=== PATIENT | female | born 1945 | race Caucasian/White ===

== ENCOUNTER 2016-07-13 17:11 | Inpatient (IN) | payer OTHER ==
[~2016-07-13] VITALS: Ht 162.6 cm; Wt 39.4 kg
[~2016-07-13 17:11] MED LIST: ASPCH81X PO; CLR10 PO; CMBIN INH; CRD200 PO; ELQ25 PO; IPRASOL4 INH; KETO0.024 OP; LSN10 PO; LVQ500 PO; NAPR-1169 PO; TPRSR50 PO; TRAM-10 PO; VLTG EXT
[2016-07-13] MEDS ORDERED: PRED1SUS17 OPR (17:55)
[2016-07-13] MEDS ORDERED: BRIN3SUS OPR (17:55)
--- NOTE | 2016-07-13 18:01 | DIAGNOSTIC IMAGING REPORT ---
CHEST ONE VIEW PORTABLE CLINICAL HISTORY: Atypical chest pain. Difficulty breathing. COMPARISON STUDY: 05/14/2016 FINDINGS: The heart is enlarged. There is radiographic evidence of severe pulmonary emphysema. There is a small right pleural effusion and trace left pleural effusion. There is elevation of the interstitium. This suggests an element of mild interstitial edema.[ There is no lobar consolidation. IMPRESSION: 1. Severe pulmonary emphysema 2. Cardiomegaly, small right pleural effusion and trace left pleural effusion 3. Interval development of subtle interstitial edema 4. No evidence of lobar consolidation Electronically signed by: Jef Cole M.D. 07/13/2016 5:59 PM
[2016-07-13] MEDS ORDERED: VANCOMYCIN INJ 1,000 MG in SODIUM CHLORIDE 0.9% 250ML 250 ML IV STA ×2 (18:03→20:36)
[2016-07-13] MEDS ORDERED: PIPERACILLIN/TAZOBACTAM 4.5 GM/100ML D5W IV STA (18:03)
[2016-07-13] MEDS ORDERED: ADVIN25/60 INH (18:04)
[2016-07-13] MEDS ORDERED: CMBIN INH (18:04)
[2016-07-13] MEDS ORDERED: TRAV0.00 OPR (18:06)
[2016-07-13 18:10] LABS: HEMATOCRIT 38.7 % (37-47); MEAN CELL VOLUME 99.2 fL (80-100); MEAN CORPUSCULAR HEMOGLOBIN 32.3 pg (25-34); MEAN CORPUSCULAR HGB CONC 32.6 g/dl (32-36); MEAN PLATELET VOLUME 11.1 fL (7.4-10.4); PLATELET COUNT 228 K/uL (130-400)
[2016-07-13] MEDS ORDERED: LEVAQUIN 500MG / 100ML D5W IV ONE (18:15)
[2016-07-13 18:28] LABS: BUN/CREATININE RATIO 16.4 (10-20); CALCIUM 8.2 mg/dl (8.5-10.1); POTASSIUM 4.2 mmol/L (3.5-5.1)
[2016-07-13 18:33] LABS: ALB/GLOB RATIO 1.1 (0.9-2); CKMB/CK RATIO 3.3 (0-3.0)
[2016-07-13 19:10] LABS: INR 1.1 (0.9-1.1); PARTIAL THROMBOPLASTIN RATIO 0.9
--- NOTE | 2016-07-13 19:49 | DIAGNOSTIC IMAGING REPORT ---
LATERAL VIEW OF THE CHEST CLINICAL HISTORY: cough, fever, recent admission pneumonia COMPARISON STUDY: 07/13/2016 FINDINGS: There are small bilateral pleural effusions. There is radiographic evidence of emphysema. There are increased posterior basilar markings.[ IMPRESSION: Small bilateral pleural effusions. Posterior basilar airspace opacities Electronically signed by: Jef Cole M.D. 07/13/2016 7:47 PM
[2016-07-13] MEDS ORDERED: PREMIXED IN D5W 100 ML IV SCH (20:45)
[2016-07-13] MEDS ORDERED: NITROGLYCERIN 0.4 MG SL PER TAB CHARGE UT PRN (20:45)
[2016-07-13] MEDS ORDERED: ZOLPIDEM TARTRATE 5 MG TAB PO PRN (20:45)
[2016-07-13] MEDS ORDERED: ONDANSETRON INJ 2 MG/ML 2 ML VIAL IV PRN ×2 (20:45)
[2016-07-13] MEDS ORDERED: ACETAMINOPHEN 325 MG TAB PO PRN ×2 (20:45)
[2016-07-13] MEDS ORDERED: METHYLPREDNISOLONE 125 MG VIAL ONE (20:52)
[2016-07-13] MEDS ORDERED: LEVALBUTEROL/IPRATROPIUM NEB INH SCH (21:00)
--- NOTE | 2016-07-13 21:03 | EMERGENCY ROOM VISIT NOTE ---
History Report prepared by Melvin: Marion Escamilla Under the Supervision of: Dr. Edison Kwan M.D. First contact with patient: 17:46 Chief Complaint: CHEST PAIN Stated Complaint: BREATHING DIFFICULTY/CHEST PAIN Nursing Triage Summary: hx pneumonia, CT, and emphysema. c/o left sided chest pain and sob. arrived als with resp tx running. frequent cough, yellow sputum. "sob worse today" left antererior chest end inspiration monophonic wheeze History of Present Illness The patient is a 70 year old female who presents to the Emergency Room via ALS with complaints of worsened shortness of breath that began this evening. She notes that the shortness of breath began after an albuterol breathing treatment. She has a history of COPD. She also complains of a sore throat and productive cough with yellow sputum. The patient notes that she recently recovered from pneumonia after being hospitalized a few weeks before . She is in on [employer] for a-fib. She also has a history of CT. Source of History: patient Onset: today Position: other (Global - SOB) Timing: other (worsened) Associated Symptoms: + cough, + sorethroat Review of Systems See HPI for pertinent positives & negatives. A total of 10 systems reviewed and were otherwise negative. Past Medical & Surgical Medical Problems: (1) ACS (acute coronary syndrome) (2) Anxiety (3) Bronchitis (4) Cardiac stent x2 (5) COPD exacerbation (6) Emphysema (7) Gastroesophageal reflux disease (8) Hyperlipidemia (9) Hypotension (10) Hysterectomy (11) Junctional rhythm (12) Migraines (13) Myocardial infarction (14) Pneumonia (15) Shortness of breath (16) Ulcers Family History No pertinent family history Social History Smoking Status: Light Tobacco Smoker Alcohol Use: none Drug Use: none Marital Status: Housing Status: lives with family Occupation Status: retired Current/Historical Medications Scheduled Amiodarone HCl (Amiodarone HCl), 200 MG PO QAM Apixaban (Eliquis), 2.5 MG PO BID Aspirin (Aspirin Chewable), 81 MG PO DAILY Atorvastatin Calcium (Lipitor), 80 MG PO DAILY Brinzolamide-Brimonidine Tartr (Simbrinza), 1 DROP OPR TID Fluticasone Prop/Salmeterol (Advair Diskus 250/50 60 Dose), 1 PUFF INH BID Ipratropium-Albuterol (Duoneb), 1 TREATMENT INH BID Ipratropium/Albuterol (Combivent), 2 PUFFS INH Q6 Lisinopril (Zestril), 10 MG PO DAILY Metoprolol Succinate (Metoprolol Succinate ER), 50 MG PO QAM Nitroglycerin (Nitrostat), 0.4 MG UT PRN Prednisolone Acetate (Ophth) (Prednisolone Acetate), 1 DROP OPR QID Travoprost (Travatan Z), 1 DROPS OPR HS Allergies Coded Allergies: Sulfa Antibiotics (Verified Allergy, Unknown, SWELLING, 07/13/16) Physical Exam Vital Signs Date Time Temp Pulse Resp B/P Pulse Ox O2 Delivery O2 Flow Rate FiO2 07/13/16 20:47 77 07/13/16 18:51 77 26 90 07/13/16 18:46 77 22 90 07/13/16 18:41 81 36 89 07/13/16 18:36 80 29 90 07/13/16 18:31 80 23 90 07/13/16 18:28 135/59 07/13/16 18:26 80 31 91 07/13/16 18:21 81 33 90 Nasal Cannula 2.0 07/13/16 18:16 80 35 89 Nasal Cannula 2.0 07/13/16 18:12 148/74 07/13/16 18:11 81 37 90 07/13/16 18:06 80 34 89 07/13/16 18:01 82 33 89 07/13/16 17:59 161/142 07/13/16 17:56 85 27 89 07/13/16 17:51 83 39 92 07/13/16 17:46 80 36 93 07/13/16 17:45 96 Nasal Cannula 3.0 07/13/16 17:41 80 35 94 Nasal Cannula 3.0 07/13/16 17:36 83 34 95 Nasal Cannula 3.0 07/13/16 17:31 83 30 94 Nasal Cannula 2.0 07/13/16 17:29 194/77 07/13/16 17:26 82 32 96 Nebulizer 07/13/16 17:23 81 07/13/16 17:21 82 41 100 Nebulizer 07/13/16 17:15 148/73 07/13/16 17:15 92 Nasal Cannula 2.0 07/13/16 17:15 94 Nasal Cannula 3.0 07/13/16 17:15 96 Nasal Cannula 3.0 07/13/16 17:15 38.0 81 22 194/77 94 Nasal Cannula 3.0 Physical Exam CONSTITUTIONAL: Mild to moderate respiratory distress. HEENT: No icterus, moist mucous membranes NECK: No meningismus, trachea is midline. CARDIOVASCULAR: Regular rate, normal perfusion RESPIRATORY: Unlabored breathing. Diminished coarse breath sounds bilaterally. GASTROINTESTINAL: Non-tender GENITOURINARY: No flank tenderness MUSCULOSKELETAL: Full range of motion NEUROLOGIC: No acute gross focal deficits. PSYCHIATRIC: Normal affect SKIN: Normal for ethnicity. Medical Decision & Procedures ER Provider Diagnostic Interpretation: X-ray results as stated below per interpretation by me and the radiologist. CHEST ONE VIEW PORTABLE CLINICAL HISTORY: Atypical chest pain. Difficulty breathing. COMPARISON STUDY: 05/14/2016 FINDINGS: The heart is enlarged. There is radiographic evidence of severe pulmonary emphysema. There is a small right pleural effusion and trace left pleural effusion. There is elevation of the interstitium. This suggests an element of mild interstitial edema.[ There is no lobar consolidation. IMPRESSION: 1. Severe pulmonary emphysema 2. Cardiomegaly, small right pleural effusion and trace left pleural effusion 3. Interval development of subtle interstitial edema 4. No evidence of lobar consolidation Electronically signed by: Jef Cole M.D. 07/13/2016 5:59 PM LATERAL VIEW OF THE CHEST CLINICAL HISTORY: cough, fever, recent admission pneumonia COMPARISON STUDY: 07/13/2016 FINDINGS: There are small bilateral pleural effusions. There is radiographic evidence of emphysema. There are increased posterior basilar markings.[ IMPRESSION: Small bilateral pleural effusions. Posterior basilar airspace opacities Electronically signed by: Jef Cole M.D. 07/13/2016 7:47 PM Laboratory Results 07/13/16 17:50 07/13/16 17:50 Test 07/13/16 17:50 07/13/16 18:40 07/13/16 18:45 07/13/16 18:50 Red Blood Count 3.90 M/uL (4.2-5.4) Mean Corpuscular Volume 99.2 fL (80-100) Mean Corpuscular Hemoglobin 32.3 pg (25-34) Mean Corpuscular Hemoglobin Concent 32.6 g/dl (32-36) RDW Standard Deviation 48.9 fL (36.4-46.3) RDW Coefficient of Variation 13.6 % (11.5-14.5) Mean Platelet Volume 11.1 fL (7.4-10.4) Anion Gap 11.0 mmol/L (3-11) Est Creatinine Clear Calc Drug Dose 33.5 ml/min Estimated GFR () 65.6 Estimated GFR (Non- 56.6 BUN/Creatinine Ratio 16.4 (10-20) Calcium Level 8.2 mg/dl (8.5-10.1) Total Bilirubin 0.5 mg/dl (0.2-1) Aspartate Amino Transf (AST/SGOT) 56 U/L (15-37) Alanine Aminotransferase (ALT/SGPT) 62 U/L (12-78) Alkaline Phosphatase 151 U/L (45-117) Total Creatine Kinase 89 U/L (26-192) Creatine Kinase MB 2.9 ng/ml (0.5-3.6) Creatine Kinase MB Ratio 3.3 (0-3.0) Troponin I 0.036 ng/ml (0-0.045) Total Protein 6.8 gm/dl (6.4-8.2) Albumin 3.6 gm/dl (3.4-5.0) Globulin 3.2 gm/dl (2.5-4.0) Albumin/Globulin Ratio 1.1 (0.9-2) Pro-B-Type Natriuretic Peptide 19670 pg/ml (0-900) Prothrombin Time 12.0 SECONDS (9.0-12.0) Prothromb Time International Ratio 1.1 (0.9-1.1) Activated Partial Thromboplast Time 23.6 SECONDS (21.0-31.0) Partial Thromboplastin Ratio 0.9 Bedside Lactic Acid Venous 1.05 mmol/L (0.90-1.70) Influenza Type A Antigen Neg for Influ A (NEG) Influenza Type B Antigen Neg for Influ B (NEG) Labs reviewed by ED physician. Medications Administered Medications (Trade) Dose Ordered Sig/Eileen Route Start Time Stop Time Status Last Admin Dose Admin Piperacillin Sod/ Tazobactam Sod (Zosyn Iv) 4.5 gm NOW STAT IV 07/13/16 18:03 07/13/16 18:06 DC 07/13/16 19:09 4.5 GM Levofloxacin 500 mg 500 mg NOW ONCE IV 07/13/16 18:15 07/13/16 18:16 DC 07/13/16 19:09 500 MG Vancomycin HCl/ Sodium Chloride (Vancomycin Inj/ Nss 250ml) 270 ml @ 125 mls/hr NOW STAT IV 07/13/16 18:03 07/13/16 20:12 DC 07/13/16 19:37 125 MLS/HR ECG Indication: SOB/dyspnea Rate (beats per minute): 81 Findings: other (normal axis, nonspecific changes with artifact noted) ED Course 1754: Past medical records reviewed. The patient was evaluated in room B7. A complete history and physical examination was performed. 1802: Ordered Vancomycin HCl 1000 mg/NSS 270 ml @ 125 mls/hr IV, Zosyn 4.5 gm IV. 1814: Ordered Levofloxacin 500 mg IV. 2003: Upon reexamination the patient is resting comfortably. I discussed results and treatment plan with the patient. She verbalizes agreement and understanding. 2020: I spoke with Dr. Avila from the [facility] Hospitalist Service. The patient will be evaluated for further management. Medical Decision Differential includes but is not limited to pneumonia, flu, CHF. 70-year-old with history of COPD and emphysema with recent report of hospitalization for pneumonia presents to the emergency room with fever today and worsening dyspnea. Given fever and recent hospitalization for pneumonia antibiotics for healthcare acquired pneumonia ordered including Zosyn, Levaquin and vancomycin. Chest x-ray concerning for pneumonia and admission arranged hospitalist. Consults Time Called: 2000 Consulting Physician: Dr. Avila from the [facility] Hospitalist Service Returned Call: [address] Avila from the [facility] Hospitalist Service. The patient will be evaluated for further management. Impression Primary Impression: Fever Scribe Attestation The scribe's documentation has been prepared under my direction and personally reviewed by me in its entirety. I confirm that the note above accurately reflects all work, treatment, procedures, and medical decision making performed by me. Departure Information Dispostion Being Evaluated By Hospitalist Referrals Inocencio Liz M.D. (PCP) Patient Instructions A Signature Page, My [facility]
[2016-07-13] MEDS ORDERED: LEVALBUTEROL 1.25MG/0.5ML NEB INH PRN (21:15)
[2016-07-13] MEDS ORDERED: IPRATROPIUM BROMIDE NEB SOLN 0.02% 2.5 ML VIAL INH PRN (21:15)
[2016-07-13 21:28] VITALS: BP 135/70; PULSE 81; TEMP 36.4; O2SAT 91; Ht 162.6 cm; Wt 39.4 kg
[2016-07-13] MEDS: PrednisoLONE ACET 1% OP SUSP 5 ML BTL OPR SCH (22:04)
[2016-07-13] MEDS: GUAIFENESIN 600 MG TABCR PO SCH (22:04)
[2016-07-13] MEDS: TRAVOPROST Z 0.004% OPH SOLN 2.5 ML BTL OPR SCH (22:04)
[2016-07-13] MEDS: APIXABAN 2.5 MG TAB PO SCH (22:04)
[2016-07-13] MEDS: BuPROPion SR 150 MG TABCR PO SCH (22:05)
--- NOTE | 2016-07-13 22:41 | History and Physical ---
History & Physical Date & Time of Service: Jul 13, 2016 at 22:15 Chief Complaint: Copd Exacerbation, Pneumonia Primary Care Physician: Inocencio Liz M.D. History of Present Illness Source: patient The patient is a 70-year-old female who presents emergency department via ALS with complaint of progressively worsening shortness of breath over the past few days but in particular earlier this evening. She has a known history of severe COPD, and has home nebulizers and inhalers that she uses. Her symptoms persisted even after her usual treatments at home and this precipitated a call to emergency services. She has been most recently admitted into the hospital from April 29- for a non-STEMI, and then from May 13 through May 16 for a COPD exacerbation, atrial flutter, hypotension requiring dopamine. She does continue to smoke tobacco daily. Past Medical/Surgical History Medical Problems: (1) Anxiety Status: Chronic (2) Bronchitis Status: Chronic (3) Cardiac stent x2 Status: Resolved (4) Emphysema Status: Chronic (5) Gastroesophageal reflux disease Status: Chronic (6) Hyperlipidemia Status: Chronic (7) Hysterectomy Status: Resolved (8) Migraines Status: Chronic (9) Myocardial infarction Status: Chronic (10) Pneumonia Status: Chronic (11) Ulcers Status: Chronic Family History No pertinent family history Social History Smoking Status: Current Every Day Smoker Smokeless Tobacco Use: No Alcohol Use: none Drug Use: none Marital Status: Housing status: lives with family Occupational Status: retired Immunizations History of Influenza Vaccine: Yes History of Tetanus Vaccine?: No History of Pneumococcal: No History of Hepatitis B Vaccine: No Multi-Drug Resistant Organisms History of MDRO: Yes Allergies Coded Allergies: Sulfa Antibiotics (Verified Allergy, Unknown, SWELLING, 07/13/16) Home Medications Scheduled Amiodarone HCl (Amiodarone HCl), 200 MG PO QAM Apixaban (Eliquis), 2.5 MG PO BID Aspirin (Aspirin Chewable), 81 MG PO DAILY Atorvastatin Calcium (Lipitor), 80 MG PO DAILY Brinzolamide-Brimonidine Tartr (Simbrinza), 1 DROP OPR TID Fluticasone Prop/Salmeterol (Advair Diskus 250/50 60 Dose), 1 PUFF INH BID Ipratropium-Albuterol (Duoneb), 1 TREATMENT INH BID Ipratropium/Albuterol (Combivent), 2 PUFFS INH Q6 Lisinopril (Zestril), 10 MG PO DAILY Metoprolol Succinate (Metoprolol Succinate ER), 50 MG PO QAM Nitroglycerin (Nitrostat), 0.4 MG UT PRN Prednisolone Acetate (Ophth) (Prednisolone Acetate), 1 DROP OPR QID Travoprost (Travatan Z), 1 DROPS OPR HS Review of Systems The patient denies chest pain, palpitations, lower extremity swelling, vision change, hearing change, fevers, chills, sweats, weight change, nausea, vomiting , abdominal pain, pelvic pain, blood in urine or stool, dysuria, urinary frequency or urgency, lightheadedness, dizziness, headache, memory loss, rash, abnormal bruising or bleeding, imbalance, focal weakness, numbness or tingling in arms or legs, arthralgias or myalgias, back or neck pain, night sweats, or allergy symptoms. The review of systems is otherwise negative other than for that already noted above, and at least 10 systems have been reviewed. Physical Exam Vital Signs Date Time Temp Pulse Resp B/P Pulse Ox O2 Delivery O2 Flow Rate FiO2 07/13/16 21:28 36.4 81 26 135/70 91 Nasal Cannula 4.0 07/13/16 21:13 38.0 78 32 123/46 93 07/13/16 21:01 78 123/46 93 Nasal Cannula 2.0 07/13/16 20:56 79 91 07/13/16 20:51 124 80 07/13/16 20:47 77 07/13/16 20:46 79 93 07/13/16 20:41 83 91 07/13/16 20:36 81 93 07/13/16 20:31 78 94 07/13/16 20:26 79 95 07/13/16 20:21 78 92 07/13/16 20:16 77 92 07/13/16 20:11 76 92 07/13/16 20:06 76 92 07/13/16 20:01 74 91 07/13/16 19:56 74 93 07/13/16 19:51 76 93 07/13/16 19:46 78 91 07/13/16 19:29 118/47 07/13/16 19:26 77 32 92 07/13/16 19:21 80 39 91 07/13/16 19:16 78 37 92 07/13/16 19:11 79 36 89 07/13/16 19:06 80 35 89 07/13/16 19:01 79 39 89 07/13/16 19:00 110/100 07/13/16 18:56 78 38 90 07/13/16 18:51 77 26 90 07/13/16 18:46 77 22 90 07/13/16 18:41 81 36 89 07/13/16 18:36 80 29 90 07/13/16 18:31 80 23 90 07/13/16 18:28 135/59 07/13/16 18:26 80 31 91 07/13/16 18:21 81 33 90 Nasal Cannula 2.0 07/13/16 18:16 80 35 89 Nasal Cannula 2.0 07/13/16 18:12 148/74 07/13/16 18:11 81 37 90 07/13/16 18:06 80 34 89 07/13/16 18:01 82 33 89 07/13/16 17:59 161/142 07/13/16 17:56 85 27 89 07/13/16 17:51 83 39 92 07/13/16 17:46 80 36 93 07/13/16 17:45 96 Nasal Cannula 3.0 07/13/16 17:41 80 35 94 Nasal Cannula 3.0 07/13/16 17:36 83 34 95 Nasal Cannula 3.0 07/13/16 17:31 83 30 94 Nasal Cannula 2.0 07/13/16 17:29 194/77 07/13/16 17:26 82 32 96 Nebulizer 07/13/16 17:23 81 07/13/16 17:21 82 41 100 Nebulizer 07/13/16 17:15 148/73 07/13/16 17:15 92 Nasal Cannula 2.0 07/13/16 17:15 94 Nasal Cannula 3.0 07/13/16 17:15 96 Nasal Cannula 3.0 07/13/16 17:15 38.0 81 22 194/77 94 Nasal Cannula 3.0 The patient is awake, alert and oriented 3, is very thin and cachectic appearing, normocephalic and atraumatic, lying in bed and in no acute distress. HEENT--PERRL, EOMI, mucous membranes moist, and oropharynx normal. Neck--supple, no JVD or bruits, thyroid normal, trachea midline, no adenopathy. Heart--normal S1 and S2, no extra beats, no murmurs, rubs or gallops. Lungs--very diminished breath sounds throughout , mild to moderate respiratory distress, no accessory muscle use. Abdomen--normal bowel sounds and soft, nontender and nondistended, no hernias or masses, no organomegaly. Extremities--no cyanosis, clubbing or edema. There are good distal pulses b/l. Dermatologic--normal skin turgor, normal color, warm and dry, no abnormal lymph nodes, no rash. Neurologic--cranial nerves II through XII grossly intact. Psychiatric--normal affect. Diagnostics Laboratory Results Results Past 24 Hours Test 07/13/16 17:50 07/13/16 18:40 07/13/16 18:45 07/13/16 18:50 Range/Units White Blood Count 17.60 4.8-10.8 K/uL Red Blood Count 3.90 4.2-5.4 M/uL Hemoglobin 12.6 12.0-16.0 g/dL Hematocrit 38.7 37-47 % Mean Corpuscular Volume 99.2 80-100 fL Mean Corpuscular Hemoglobin 32.3 25-34 pg Mean Corpuscular Hemoglobin Concent 32.6 32-36 g/dl RDW Standard Deviation 48.9 36.4-46.3 fL RDW Coefficient of Variation 13.6 11.5-14.5 % Platelet Count 228 130-400 K/uL Mean Platelet Volume 11.1 7.4-10.4 fL Sodium Level 138 136-145 mmol/L Potassium Level 4.2 3.5-5.1 mmol/L Chloride Level 100 98-107 mmol/L Carbon Dioxide Level 27 21-32 mmol/L Anion Gap 11.0 3-11 mmol/L Blood Urea Nitrogen 16 7-18 mg/dl Creatinine 1.00 0.60-1.20 mg/dl Est Creatinine Clear Calc Drug Dose 33.5 ml/min Estimated GFR () 65.6 Estimated GFR (Non- 56.6 BUN/Creatinine Ratio 16.4 10-20 Random Glucose 166 70-99 mg/dl Calcium Level 8.2 8.5-10.1 mg/dl Total Bilirubin 0.5 0.2-1 mg/dl Aspartate Amino Transf (AST/SGOT) 56 15-37 U/L Alanine Aminotransferase (ALT/SGPT) 62 12-78 U/L Alkaline Phosphatase 151 45-117 U/L Total Creatine Kinase 89 26-192 U/L Creatine Kinase MB 2.9 0.5-3.6 ng/ml Creatine Kinase MB Ratio 3.3 0-3.0 Troponin I 0.036 0-0.045 ng/ml Total Protein 6.8 6.4-8.2 gm/dl Albumin 3.6 3.4-5.0 gm/dl Globulin 3.2 2.5-4.0 gm/dl Albumin/Globulin Ratio 1.1 0.9-2 Pro-B-Type Natriuretic Peptide 19370 0-900 pg/ml Prothrombin Time 12.0 9.0-12.0 SECONDS Prothromb Time International Ratio 1.1 0.9-1.1 Activated Partial Thromboplast Time 23.6 21.0-31.0 SECONDS Partial Thromboplastin Ratio 0.9 Bedside Lactic Acid Venous 1.05 0.90-1.70 mmol/L Influenza Type A Antigen Neg for Influ A NEG Influenza Type B Antigen Neg for Influ B NEG Microbiology Results 07/13/16 Blood Culture, Received Pending 07/13/16 Blood Culture, Received Pending Diagnostic Radiology Patient Name: LAW ALVAREZ Unit Number: [id number] Dictated: 07/13/161756 Transcribed: 07/13/161756 ARG Printed Date/Time: [~ rep prt dt]/[~ rep prt tm] [~ rep ct labl] - [~ rep ct ivnm] [facility] Radiology Department [place], [place] [id number] Dictated: 07/13/161756 Transcribed: 07/13/161756 ARG Printed Date/Time: [~ rep prt dt]/[~ rep prt tm] [~ rep ct labl] - [~ rep ct ivnm] [~ rep ct add3]] CHEST ONE VIEW PORTABLE CLINICAL HISTORY: Atypical chest pain. Difficulty breathing. COMPARISON STUDY: 05/14/2016 FINDINGS: The heart is enlarged. There is radiographic evidence of severe pulmonary emphysema. There is a small right pleural effusion and trace left pleural effusion. There is elevation of the interstitium. This suggests an element of mild interstitial edema.[ There is no lobar consolidation. IMPRESSION: 1. Severe pulmonary emphysema 2. Cardiomegaly, small right pleural effusion and trace left pleural effusion 3. Interval development of subtle interstitial edema 4. No evidence of lobar consolidation Electronically signed by: Jef Cole M.D. 07/13/2016 5:59 PM The status of this report is Signed. Draft = Not yet reviewed or approved by Radiologist. Signed = Reviewed and approved by Radiologist. <AttendingPhy></AttendingPhy> <FamilyPhy>Inocencio Liz M.D.</FamilyPhy> < PrimaryPhy>Inocencio Liz M.D.</PrimaryPhy> <UnitNumber>[id number]</UnitNumber> <VisitNumber>[id number]</VisitNumber> <PatientName>LAW ALVAREZ</ PatientName> <DateOfBirth>1945</DateOfBirth> <Location>[facility]</Location> < ServiceDate>07/13/16</ServiceDate> <MNE>ESINDI</MNE> <OrderingPhy>ED, PROTOCOL</ OrderingPhy> <OrderingPhyMNE>f rep ord dr pham</OrderingPhyMNE> <DictatingPhyMNE> f rep dict dr pham</DictatingPhyMNE> <CCListMNE>f rep ct mne</CCListMNE> < AdmittingPhyMNE>f pt admit dr pham</AdmittingPhyMNE> <AttendingPhyMNE>f pt attend dr pham</AttendingPhyMNE> <ConsultingPhyMNE>f pt consult dr pham</ConsultingPhyMNE> <FamilyPhyMNE>f pt fam dr pham</FamilyPhyMNE> <OtherPhyMNE>f pt other dr pham</OtherPhyMNE> < PrimaryPhyMNE>f pt prim care dr pham</PrimaryPhyMNE> <ReferringPhyMNE>f pt referring dr pham</ReferringPhyMNE> Patient Name: LAW ALVAREZ Unit Number: [id number] Dictated: 07/13/161945 Transcribed: 07/13/161945 ARG Printed Date/Time: [~ rep prt dt]/[~ rep prt tm] [~ rep ct labl] - [~ rep ct ivnm] [facility] Radiology Department [place], [place] [id number] Dictated: 07/13/161945 Transcribed: 07/13/161945 ARG Printed Date/Time: [~ rep prt dt]/[~ rep prt tm] [~ rep ct labl] - [~ rep ct ivnm] LATERAL VIEW OF THE CHEST CLINICAL HISTORY: cough, fever, recent admission pneumonia COMPARISON STUDY: 07/13/2016 FINDINGS: There are small bilateral pleural effusions. There is radiographic evidence of emphysema. There are increased posterior basilar markings.[ IMPRESSION: Small bilateral pleural effusions. Posterior basilar airspace opacities Electronically signed by: Jef Cole M.D. 07/13/2016 7:47 PM The status of this report is Signed. Draft = Not yet reviewed or approved by Radiologist. Signed = Reviewed and approved by Radiologist. <AttendingPhy></AttendingPhy> <FamilyPhy>Hank Guthrie D.O.</FamilyPhy> < PrimaryPhy>Inocencio Liz M.D.</PrimaryPhy> <UnitNumber>[id number]</UnitNumber> <VisitNumber>[id number]</VisitNumber> <PatientName>LAW ALVAREZ Denys</ PatientName> <DateOfBirth>1945</DateOfBirth> <Location>[facility]</Location> < ServiceDate>07/13/16</ServiceDate> <MNE>ESINDI</MNE> <OrderingPhy>Pal Kwan MD</OrderingPhy> <OrderingPhyMNE>f rep ord dr pham</OrderingPhyMNE> < DictatingPhyMNE>f rep dict dr pham</DictatingPhyMNE> <CCListMNE>f rep ct ankit</ CCListMNE> <AdmittingPhyMNE>f pt admit dr pham</AdmittingPhyMNE> <AttendingPhyMNE >f pt attend dr pham</AttendingPhyMNE> <ConsultingPhyMNE>f pt consult dr pham</ConsultingPhyMNE> <FamilyPhyMNE>f pt fam dr pham</FamilyPhyMNE> <OtherPhyMNE>f pt other dr pham</OtherPhyMNE> < PrimaryPhyMNE>f pt prim care dr pham</PrimaryPhyMNE> <ReferringPhyMNE>f pt referring dr pham</ReferringPhyMNE> EKG EKG shows normal sinus rhythm at 81, with old anterior infarct, and [address] depressions in V5 and V6. Impression Assessment and Plan COPD exacerbation with left lower lobe pneumonia--patient will be admitted to telemetry unit. She'll be placed on vancomycin IV per renal dosing, levofloxacin 500 mg IV every 24 hours, Zosyn 3.375 mg IV every 8 hours, Xopenex with Atrovent nebulizers to use every 6 hours while awake every 2 hours when necessary, guaifenesin extended release 600 mg by mouth twice a day, and Solu- Medrol 60 mg IV every 6 hours. Coronary artery disease/hypertension/history of non-STEMI/ A flutter history-- patient will be admitted to the telemetry unit and will undergo serial cardiac enzymes, and cardiac rhythm monitoring. Continue amiodarone 200 mg by mouth every morning, Eliquis 2.5 mg by mouth twice a day, chewable aspirin 81 mg by mouth daily, lisinopril 10 mg by mouth daily, metoprolol succinate ER 50 mg by mouth every morning and nitroglycerin sublingual when necessary. Hypercholesterolemia--continue atorvastatin 80 mg by mouth daily. Tobacco use disorder--we'll start patient on Wellbutrin SR 150 mg by mouth twice a day. Glaucoma--continue Travatan Z 1 drop OPR HS. Level of Care Telemetry Advanced Directives Existing Advance Directive: No Existing Living Will: No Existing Power of Mattress Stripper: No Resuscitation Status FULL RESUSCITATION VTE Prophylaxis VTE Risk Assessment Done? Y/N: Yes Risk Level: Moderate Given or contraindicated: Other Anticoagulation (eliquis 2.5mg po bid), SCD's
[2016-07-13] MEDS: SIMBRINZA~ORDER AWAITING ACTION SCH (23:00)
[2016-07-13] MEDS: PIPERACILL/TAZOBAC IV 3.375 GM in DEXTROSE 5% 100ML 100 ML IV SCH (23:03)
[2016-07-13 23:35] VITALS: BP 100/48; PULSE 69; TEMP 36.5; O2SAT 98
[2016-07-14] VITALS (10 sets, daily range): BP systolic 114–127; BP diastolic 57–64; PULSE 55–74; TEMP 36.4–37; O2SAT 98–100
[2016-07-14 00:03] LABS: CKMB/CK RATIO 4.3 (0-3.0)
[2016-07-14] MEDS: LEVALBUTEROL 1.25MG/0.5ML NEB INH SCH ×4 (01:26→20:33)
[2016-07-14] MEDS: IPRATROPIUM BROMIDE NEB SOLN 0.02% 2.5 ML VIAL INH SCH ×4 (01:26→20:33)
[2016-07-14] MEDS ORDERED: GLUCOSE 40% GEL 15 GM TUBE PO PRN (03:15)
[2016-07-14] MEDS ORDERED: DEXTROSE 50% 50 ML SYR IV PRN (03:15)
[2016-07-14] MEDS ORDERED: GLUCAGON FOR INJ 1 MG VIAL SQ PRN (03:15)
[2016-07-14] MEDS ORDERED: GLUCOSE 10 TABS/TUBE PO PRN (03:15)
[2016-07-14] MEDS: METHYLPREDNISOLONE IV 60 MG in SYRINGE 0 ML IV SCH ×2 (03:33→08:52)
[2016-07-14] MEDS: INSULIN ASPART 100 UNITS/ML 3 ML PEN SC SCH ×4 (07:00→20:31)
[2016-07-14 07:30] LABS: COMPLETE YES; HEMATOCRIT 33.4 % (37-47); IG% 0.1 %; LYMPH % 4.2 %; LYMPH ABS # 0.47 K/uL (1.2-3.4); MEAN CORPUSCULAR HEMOGLOBIN 32.5 pg (25-34); MEAN CORPUSCULAR HGB CONC 33.8 g/dl (32-36); MEAN PLATELET VOLUME 10.1 fL (7.4-10.4); MONO % 1.4 %; NEUT % 94.3 %; PLATELET COUNT 133 K/uL (130-400); RED BLOOD COUNT 3.48 M/uL (4.2-5.4); WHITE BLOOD COUNT 11.31 K/uL (4.8-10.8)
[2016-07-14] MEDS: BUDESONIDE 0.5 MG/2 ML VIAL (PULMICORT) INH SCH ×2 (07:42→20:00)
[2016-07-14 07:47] LABS: CALCIUM 8.1 mg/dl (8.5-10.1); CREATININE 0.89 mg/dl (0.60-1.20); MAGNESIUM 1.7 mg/dl (1.8-2.4); POTASSIUM 3.7 mmol/L (3.5-5.1)
[2016-07-14 07:58] LABS: CKMB/CK RATIO 5.1 (0-3.0)
[2016-07-14] MEDS: SIMBRINZA~ORDER AWAITING ACTION SCH (08:00)
--- NOTE | 2016-07-14 08:19 | Clinical Documentation Query ---
AB Curran : CLINICAL DOCUMENTATION QUERY Patient is a 70 year old female admitted secondary to COPD exacerbation with LLL pneumonia. She was initiated on IV Vanco, Levaquin, and Zosyn, with nebulizer therapies, IV Solumedrol, and Guaifenesin. ER and admitting provider documentation includes "mild to moderate respiratory distress". Respiratory rates noted to be as high as 41 breaths/minute in the ED, with hours generally in the 30's. As appropriate, consider documentation as suggested below as this directly impacts DRG assignment. Thank you. In your clinical opinion is this patient being managed for: ( x ) Acute respiratory failure, POA, secondary to possible Gram-negative pneumonia ( ) Other explanation of clinical findings (Please Explain) ( ) Unable to determine (Please Define) ( ) Need to Discuss ( ) Not Agree The medical record reflects the following clinical findings, treatment, and risk factors. Clinical Indicators: Tachypnea, moderate respiratory distress, hypoxemia on room air, IV Levaquin, IV Zosyn providing gram-negative coverage Treatment: As above Risk Factors: COPD, recent hospitalization, recent antibiotic use, cachexia/malnutrition Please clarify and document your clinical opinion in the progress notes and discharge summary. Terms such as "probable", "suspected", "likely", "questionable", "possible", or "still to be ruled out" are acceptable. IF IN AGREEMENT, YOU MUST DOCUMENT ABOVE DIAGNOSTIC STATEMENT IN DAILY PROGRESS NOTES AND DISCHARGE SUMMARY. This document is not part of the patient's record. Thank You, Francisco Vo, INGE [phone]
[2016-07-14] MEDS ORDERED: NURSING VERBAL MED ORDER ONE (08:45)
[2016-07-14] MEDS: PIPERACILL/TAZOBAC IV 3.375 GM in DEXTROSE 5% 100ML 100 ML IV SCH ×3 (08:51→23:57)
[2016-07-14] MEDS: APIXABAN 2.5 MG TAB PO SCH ×2 (08:52→20:42)
[2016-07-14] MEDS: BuPROPion SR 150 MG TABCR PO SCH (08:52)
[2016-07-14] MEDS: LISINOPRIL 10 MG TAB PO SCH (08:52)
[2016-07-14] MEDS: ASPIRIN 81 MG ECTAB PO SCH (08:53)
[2016-07-14] MEDS: GUAIFENESIN 600 MG TABCR PO SCH ×2 (08:53→20:42)
[2016-07-14] MEDS: AMIODARONE 200 MG TAB PO SCH (08:53)
[2016-07-14] MEDS: ATORVASTATIN 40 MG TAB PO SCH ×2 (08:54→09:00)
[2016-07-14] MEDS: PrednisoLONE ACET 1% OP SUSP 5 ML BTL OPR SCH ×4 (08:55→20:41)
[2016-07-14] MEDS: METOPROLOL SUCC 50MG EXT REL TAB PO SCH (08:55)
[2016-07-14] MEDS ORDERED: MAGNESIUM SULFATE 1GM / D5W 1 GM in PREMIXED IN D5W 100 ML IV ONE (09:00)
[2016-07-14] MEDS ORDERED: VANCOMYCIN CONSULT ACTIVE PRN (09:15)
--- NOTE | 2016-07-14 10:22 | Progress Note ---
Subjective Date of Service: Jul 14, 2016. Subjective Pt evaluation today including: conversation w/ patient, physical exam, lab review, review of studies, review of inpatient medication list Pain: no pain PO Intake: adequate Voiding: no voiding problems patient says she feels better since she was admitted, antibiotics and steroids seem to really help eating well, urinating, moving bowels (today) says she was doing well at home until a few days ago, started with shortness of breath and productive cough, yellow sputum still smoking a few cigarettes every day Problem List Medical Problems: (1) CAD (coronary artery disease) Status: Acute (2) COPD exacerbation Status: Acute (3) Dysrhythmia Status: Acute (4) Fever Status: Acute (5) NSTEMI (non-ST elevated myocardial infarction) Status: Acute Review of Systems Constitutional: + fatigue, + problem reported (light headed), + weakness Respiratory: + cough, + dyspnea on exertion, + shortness of breath, + sputum, + wheezing All Other Systems: Reviewed and Negative Medications Current Inpatient Medications Medications (Trade) Dose Ordered Sig/Eileen Route Start Time Stop Time Status Last Admin Dose Admin Piperacillin Sod/ Tazobactam Sod 3.375 gm/Dextrose 115 ml @ 28 mls/hr Q8H IV 07/14/16 00:00 07/24/16 00:00 07/14/16 08:51 28 MLS/HR Methylprednisolone Sodium Succinate/ Syringe (Solu-Medrol IV/ Syringe) 0.96 ml @ 1.5 mls/min Q6H IV 07/14/16 03:00 08/13/16 02:59 07/14/16 08:52 1.5 MLS/MIN Ondansetron HCl (Zofran Inj) 4 mg Q6H PRN IV 07/13/16 20:45 08/12/16 20:44 Guaifenesin (Mucinex Contr Rel Tab) 600 mg BID PO 07/13/16 21:00 08/12/16 20:59 07/14/16 08:53 600 MG Budesonide (Pulmicort Respules 0.5MG/ 2ML Neb Soln) 0.5 mg BIDR INH 07/14/16 08:00 08/13/16 07:59 07/14/16 07:42 0.5 MG Acetaminophen (Tylenol Tab) 650 mg Q4H PRN PO 07/13/16 20:45 08/12/16 20:44 Zolpidem Tartrate (Ambien Tab) 5 mg HSZ PRN PO 07/13/16 20:45 08/12/16 20:44 Amiodarone HCl (Cordarone Tab) 200 mg QAM PO 07/14/16 09:00 08/13/16 08:59 07/14/16 08:53 200 MG Apixaban (Eliquis Tab) 2.5 mg BID PO 07/13/16 21:00 08/12/16 20:59 07/14/16 08:52 2.5 MG Aspirin (Ecotrin Tab) 81 mg DAILY PO 07/14/16 09:00 08/13/16 08:59 07/14/16 08:53 81 MG Atorvastatin Calcium (Lipitor Tab) 80 mg DAILY PO 07/14/16 09:00 08/13/16 08:59 Lisinopril (Zestril Tab) 10 mg DAILY PO 07/14/16 09:00 08/13/16 08:59 07/14/16 08:52 10 MG Metoprolol Succinate (Toprol Xl Tab) 50 mg QAM PO 07/14/16 09:00 08/13/16 08:59 Nitroglycerin (Nitrostat Tab) 0.4 mg UD PRN UT 07/13/16 20:45 08/12/16 20:44 Prednisolone Acetate (Pred Forte 1% Oph Susp) 1 drops QID OPR 07/13/16 21:00 08/12/16 20:59 07/14/16 08:55 1 DROPS Travoprost (Travatan Z) 1 drops HS OPR 07/13/16 21:00 08/12/16 20:59 07/13/16 22:04 1 DROPS Miscellaneous Information (Order Awaiting Action) 1 ea QS N/A 07/14/16 00:00 08/13/16 00:00 Bupropion HCl (Wellbutrin-Sr Tab) 150 mg BID PO 07/13/16 21:00 08/12/16 20:59 07/14/16 08:52 150 MG Ipratropium [place] (Atrovent 0.02% 0.5MG/2.5ML Neb) 0.5 mg Q6R INH 07/14/16 03:00 08/13/16 02:59 07/14/16 07:08 0.5 MG Levalbuterol (Xopenex 1.25MG/ 0.5ML Neb) 1.25 mg Q6R INH 07/14/16 03:00 08/13/16 02:59 07/14/16 07:08 1.25 MG Ipratropium [place] (Atrovent 0.02% 0.5MG/2.5ML Neb) 0.5 mg Q2H PRN INH 07/13/16 21:15 08/12/16 21:14 Levalbuterol (Xopenex 1.25MG/ 0.5ML Neb) 1.25 mg Q2H PRN INH 07/13/16 21:15 08/12/16 21:14 Insulin Aspart (novoLOG ASPART) SLIDING SCALE If C... ACHS SC 07/14/16 07:00 08/13/16 06:59 Glucose (Glucose 40% Gel) UD PRN PO 07/14/16 03:15 08/13/16 03:14 Glucose (Glucose Chew Tab) 1 tabs UD PRN PO 07/14/16 03:15 08/13/16 03:14 Dextrose (Dextrose 50% 50ML Syringe) 50 ml UD PRN IV 07/14/16 03:15 08/13/16 03:14 Glucagon 1 mg 1 mg UD PRN SQ 07/14/16 03:15 08/13/16 03:14 Vancomycin HCl/ Sodium Chloride (Vancomycin Inj/ Nss 250ml) 263 ml @ 125 mls/hr DAILY@1400 IV 07/14/16 14:00 07/23/16 13:59 Vancomycin HCl (Consult) 1 ea UD PRN N/A 07/14/16 09:15 08/13/16 09:14 Objective Vital Signs Date Time Temp Pulse Resp B/P Pulse Ox O2 Delivery O2 Flow Rate FiO2 07/14/16 07:28 36.5 55 18 120/64 98 Nasal Cannula 2.5 07/14/16 07:08 56 18 98 Nasal Cannula 3.0 07/14/16 04:02 99 Nasal Cannula 2.0 07/14/16 03:29 37.0 56 18 114/63 100 07/14/16 01:26 56 18 98 Nasal Cannula 4.0 07/14/16 00:02 Nasal Cannula 4.0 07/13/16 23:35 36.5 69 22 100/48 98 Nasal Cannula 4.0 07/13/16 21:28 36.4 81 26 135/70 91 Nasal Cannula 4.0 07/13/16 21:13 38.0 78 32 123/46 93 07/13/16 21:01 78 123/46 93 Nasal Cannula 2.0 07/13/16 20:56 79 91 07/13/16 20:51 124 80 07/13/16 20:47 77 07/13/16 20:46 79 93 07/13/16 20:41 83 91 07/13/16 20:36 81 93 07/13/16 20:31 78 94 07/13/16 20:26 79 95 07/13/16 20:21 78 92 07/13/16 20:16 77 92 07/13/16 20:11 76 92 07/13/16 20:06 76 92 07/13/16 20:01 74 91 07/13/16 19:56 74 93 07/13/16 19:51 76 93 07/13/16 19:46 78 91 07/13/16 19:29 118/47 07/13/16 19:26 77 32 92 07/13/16 19:21 80 39 91 07/13/16 19:16 78 37 92 07/13/16 19:11 79 36 89 07/13/16 19:06 80 35 89 07/13/16 19:01 79 39 89 07/13/16 19:00 110/100 07/13/16 18:56 78 38 90 07/13/16 18:51 77 26 90 07/13/16 18:46 77 22 90 07/13/16 18:41 81 36 89 07/13/16 18:36 80 29 90 07/13/16 18:31 80 23 90 07/13/16 18:28 135/59 07/13/16 18:26 80 31 91 07/13/16 18:21 81 33 90 Nasal Cannula 2.0 07/13/16 18:16 80 35 89 Nasal Cannula 2.0 07/13/16 18:12 148/74 07/13/16 18:11 81 37 90 07/13/16 18:06 80 34 89 07/13/16 18:01 82 33 89 07/13/16 17:59 161/142 07/13/16 17:56 85 27 89 07/13/16 17:51 83 39 92 07/13/16 17:46 80 36 93 07/13/16 17:45 96 Nasal Cannula 3.0 07/13/16 17:41 80 35 94 Nasal Cannula 3.0 07/13/16 17:36 83 34 95 Nasal Cannula 3.0 07/13/16 17:31 83 30 94 Nasal Cannula 2.0 07/13/16 17:29 194/77 07/13/16 17:26 82 32 96 Nebulizer 07/13/16 17:23 81 07/13/16 17:21 82 41 100 Nebulizer 07/13/16 17:15 148/73 07/13/16 17:15 92 Nasal Cannula 2.0 07/13/16 17:15 94 Nasal Cannula 3.0 07/13/16 17:15 96 Nasal Cannula 3.0 07/13/16 17:15 38.0 81 22 194/77 94 Nasal Cannula 3.0 Physical Exam General Appearance: no apparent distress, + thin Eyes: normal inspection, EOMI, sclerae normal ENT: normal ENT inspection, hearing grossly normal, pharynx normal Neck: supple, no adenopathy, no JVD, trachea midline Respiratory/Chest: chest non-tender, normal breath sounds, no respiratory distress, no accessory muscle use, + decreased breath sounds Cardiovascular: regular rate, rhythm, no edema, no gallop, no JVD, no murmur Abdomen: normal bowel sounds, non tender, soft, no organomegaly Extremities: normal range of motion, non-tender, normal inspection, no pedal edema, no calf tenderness 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, alert, normal mood/affect, oriented x 3, + motor weakness (generalized) Skin: normal color, warm/dry, no rash Laboratory Results Last 24 Hours Test 07/13/16 17:50 07/13/16 18:40 07/13/16 18:45 07/13/16 18:50 White Blood Count 17.60 K/uL Red Blood Count 3.90 M/uL Hemoglobin 12.6 g/dL Hematocrit 38.7 % Mean Corpuscular Volume 99.2 fL Mean Corpuscular Hemoglobin 32.3 pg Mean Corpuscular Hemoglobin Concent 32.6 g/dl RDW Standard Deviation 48.9 fL RDW Coefficient of Variation 13.6 % Platelet Count 228 K/uL Mean Platelet Volume 11.1 fL Sodium Level 138 mmol/L Potassium Level 4.2 mmol/L Chloride Level 100 mmol/L Carbon Dioxide Level 27 mmol/L Anion Gap 11.0 mmol/L Blood Urea Nitrogen 16 mg/dl Creatinine 1.00 mg/dl Est Creatinine Clear Calc Drug Dose 33.5 ml/min Estimated GFR () 65.6 Estimated GFR (Non- 56.6 BUN/Creatinine Ratio 16.4 Random Glucose 166 mg/dl Calcium Level 8.2 mg/dl Total Bilirubin 0.5 mg/dl Aspartate Amino Transf (AST/SGOT) 56 U/L Alanine Aminotransferase (ALT/SGPT) 62 U/L Alkaline Phosphatase 151 U/L Total Creatine Kinase 89 U/L Creatine Kinase MB 2.9 ng/ml Creatine Kinase MB Ratio 3.3 Troponin I 0.036 ng/ml Total Protein 6.8 gm/dl Albumin 3.6 gm/dl Globulin 3.2 gm/dl Albumin/Globulin Ratio 1.1 Pro-B-Type Natriuretic Peptide 22716 pg/ml Prothrombin Time 12.0 SECONDS Prothromb Time International Ratio 1.1 Activated Partial Thromboplast Time 23.6 SECONDS Partial Thromboplastin Ratio 0.9 Bedside Lactic Acid Venous 1.05 mmol/L Influenza Type A Antigen Neg for Influ A Influenza Type B Antigen Neg for Influ B Test 07/13/16 23:33 07/14/16 06:27 07/14/16 07:18 Total Creatine Kinase 100 U/L 78 U/L Creatine Kinase MB 4.3 ng/ml 4.0 ng/ml Creatine Kinase MB Ratio 4.3 5.1 Troponin I 0.132 ng/ml 0.078 ng/ml Bedside Glucose 133 mg/dl White Blood Count 11.31 K/uL Red Blood Count 3.48 M/uL Hemoglobin 11.3 g/dL Hematocrit 33.4 % Mean Corpuscular Volume 96.0 fL Mean Corpuscular Hemoglobin 32.5 pg Mean Corpuscular Hemoglobin Concent 33.8 g/dl Platelet Count 133 K/uL Mean Platelet Volume 10.1 fL Neutrophils (%) (Auto) 94.3 % Lymphocytes (%) (Auto) 4.2 % Monocytes (%) (Auto) 1.4 % Eosinophils (%) (Auto) 0.0 % Basophils (%) (Auto) 0.0 % Neutrophils # (Auto) 10.67 K/uL Lymphocytes # (Auto) 0.47 K/uL Monocytes # (Auto) 0.16 K/uL Eosinophils # (Auto) 0.00 K/uL Basophils # (Auto) 0.00 K/uL RDW Standard Deviation 46.5 fL RDW Coefficient of Variation 13.3 % Immature Granulocyte % (Auto) 0.1 % Immature Granulocyte # (Auto) 0.01 K/uL Sodium Level 139 mmol/L Potassium Level 3.7 mmol/L Chloride Level 103 mmol/L Carbon Dioxide Level 26 mmol/L Anion Gap 10.0 mmol/L Blood Urea Nitrogen 21 mg/dl Creatinine 0.89 mg/dl Est Creatinine Clear Calc Drug Dose 38.4 ml/min Estimated GFR () 75.6 Estimated GFR (Non- 65.2 BUN/Creatinine Ratio 23.0 Random Glucose 126 mg/dl Calcium Level 8.1 mg/dl Magnesium Level 1.7 mg/dl Assessment and Plan 70 yo male with COPD, h/o pneumonia, h/o NSTEMI presented with increased dyspnea , productive cough, evidence of LLL pneumonia and wheezing on exam - Pneumonia, technically HCAP since she was hospitalized less than 90 days ago for > 48 hours will treat with Vancomycin, Zosyn, Levaquin, taper back as she improves IV fluids, f/u cultures, follow daily labs, try to wean back oxygen - COPD exacerbation; decrease Solumedrol to 40mg q12, duonebs - Tobacco abuse: again, discussed need to stop smoking, could consider medical therapy outpatient - Elevated troponin, likely demand ischemia: mild rise and quick fall in troponin, no chest pain, no ischemic changes on EKG continue aspirin, Toprol - Paroxysmal atrial flutter: in NSR on monitor, continue Amiodarone, Toprol, Eliquis - Glaucoma--continue Travatan Z 1 drop OPR HS.
[2016-07-14] MEDS: BRINZOLAMIDE-BRIMONIDINE 1-0.2% OPH SUSP OPR SCH ×2 (14:00→20:41)
[2016-07-14] MEDS ORDERED: VANCOMYCIN INJ 650 MG in SODIUM CHLORIDE 0.9% 250ML 250 ML IV SCH (14:00)
[2016-07-14 16:18] LABS: CKMB/CK RATIO 4.4 (0-3.0)
--- NOTE | 2016-07-14 16:53 | Pharmacy Progress Note ---
Pharmacy Antibiotic Consult Date of Service: Jul 14, 2016. Pharmacy Dosing Scope Pharmacy is consulted to initiate vancomycin and Zosyn IV dosing therapy, order appropriate labs and adjust drug dose/frequency. Subjective The patient is a 70 year old female admitted on Jul 13, 2016 at 20:44. Objective Height (Feet): 5 Height (Inches): 4.00 Weight (Kilograms): 42.000 Lab Results (24hrs): Laboratory Tests Test 07/13/16 17:50 07/14/16 07:18 BUN/Creatinine Ratio 16.4 23.0 Blood Urea Nitrogen 16 mg/dl 21 mg/dl Creatinine 1.00 mg/dl 0.89 mg/dl White Blood Count 17.60 K/uL 11.31 K/uL Red Blood Count 3.48 M/uL Hemoglobin 11.3 g/dL Hematocrit 33.4 % Mean Corpuscular Volume 96.0 fL Mean Corpuscular Hemoglobin 32.5 pg Mean Corpuscular Hemoglobin Concent 33.8 g/dl Platelet Count 133 K/uL Mean Platelet Volume 10.1 fL Neutrophils (%) (Auto) 94.3 % Lymphocytes (%) (Auto) 4.2 % Monocytes (%) (Auto) 1.4 % Eosinophils (%) (Auto) 0.0 % Basophils (%) (Auto) 0.0 % Neutrophils # (Auto) 10.67 K/uL Lymphocytes # (Auto) 0.47 K/uL Monocytes # (Auto) 0.16 K/uL Eosinophils # (Auto) 0.00 K/uL Basophils # (Auto) 0.00 K/uL Micro Results: 07/13 blood x2 pending 07/14 nasal swab neg MRSA Recent Pertinent Medications Item Value Date Time Vancomycin HCl 263 ml @ 125 mls/hr 07/14/16 1400 650 mg/Sodium DAILY@1400/IV 07/14/16 1458 Chloride Levofloxacin 500 mg 07/13/16 181 (Levaquin / D5W) NOW ONCE/IV 07/13/16 190 Piperacillin Sod/ 4.5 gm 07/13/16 180 Tazobactam Sod NOW STAT/IV 07/13/16 190 (Zosyn Iv) Vancomycin HCl 270 ml @ 125 mls/hr 07/13/16 1803 1000 mg/Sodium NOW STAT/IV 07/13/16 1937 Chloride Piperacillin Sod/ 115 ml @ 28 mls/hr 07/14/16 0000 Tazobactam Sod Q8H/IV 07/14/16 0851 3.375 gm/Dextrose Assessment & Plan Loading dose: vancomycin 1000 mg IV X 1 dose (~24 mg/kg) then: vancomycin 650 mg IV every 24 hours. Goal peak level estimate: between 25-40 mcg/mL. Goal trough level estimate: between 15-20 mcg/mL. for pneumonia, COPD exacerbation Trough has been ordered for: 07/16/16 before 1400 dose. Zosyn 3.375Gm extended infusion q5h for CrCl greater than 20 ml/min. Will follow closely due to patient's age and low body weight, and hope to narrow antibiotics soon. Pharmacy will continue to follow and will adjust dose/frequency as necessary. Thank you
[2016-07-14] MEDS: METHYLPREDNISOLONE IV 40 MG in SYRINGE 0 ML IV SCH (20:41)
[2016-07-14] MEDS: TRAVOPROST Z 0.004% OPH SOLN 2.5 ML BTL OPR SCH (20:42)
[2016-07-15] VITALS (10 sets, daily range): BP systolic 98–149; BP diastolic 55–70; PULSE 67–95; TEMP 36.4–36.9; O2SAT 94–100
[2016-07-15] MEDS: LEVALBUTEROL 1.25MG/0.5ML NEB INH SCH ×4 (02:14→20:07)
[2016-07-15] MEDS: IPRATROPIUM BROMIDE NEB SOLN 0.02% 2.5 ML VIAL INH SCH ×4 (02:14→20:07)
[2016-07-15 06:19] LABS: COMPLETE YES; IG% 0.2 %; LYMPH % 4.5 %; LYMPH ABS # 0.38 K/uL (1.2-3.4); MEAN CELL VOLUME 95.5 fL (80-100); MEAN CORPUSCULAR HEMOGLOBIN 31.5 pg (25-34); MEAN PLATELET VOLUME 10.7 fL (7.4-10.4); MONO % 3.3 %; PLATELET COUNT 143 K/uL (130-400); RED BLOOD COUNT 3.14 M/uL (4.2-5.4)
[2016-07-15 06:55] LABS: BUN/CREATININE RATIO 21.7 (10-20); CALCIUM 7.9 mg/dl (8.5-10.1); CREATININE 0.84 mg/dl (0.60-1.20); MAGNESIUM 2.1 mg/dl (1.8-2.4); POTASSIUM 3.4 mmol/L (3.5-5.1)
[2016-07-15] MEDS: INSULIN ASPART 100 UNITS/ML 3 ML PEN SC SCH ×5 (07:00→21:00)
[2016-07-15] MEDS: BUDESONIDE 0.5 MG/2 ML VIAL (PULMICORT) INH SCH ×2 (07:32→20:07)
[2016-07-15] MEDS: PIPERACILL/TAZOBAC IV 3.375 GM in DEXTROSE 5% 100ML 100 ML IV SCH (08:26)
[2016-07-15] MEDS: METHYLPREDNISOLONE IV 40 MG in SYRINGE 0 ML IV SCH (08:27)
[2016-07-15] MEDS: ASPIRIN 81 MG ECTAB PO SCH (08:27)
[2016-07-15] MEDS: GUAIFENESIN 600 MG TABCR PO SCH ×2 (08:27→22:07)
[2016-07-15] MEDS: AMIODARONE 200 MG TAB PO SCH (08:27)
[2016-07-15] MEDS: ATORVASTATIN 40 MG TAB PO SCH (08:27)
[2016-07-15] MEDS: BRINZOLAMIDE-BRIMONIDINE 1-0.2% OPH SUSP OPR SCH ×3 (08:28→21:29)
[2016-07-15] MEDS: PrednisoLONE ACET 1% OP SUSP 5 ML BTL OPR SCH ×4 (08:28→21:28)
[2016-07-15] MEDS: METOPROLOL SUCC 50MG EXT REL TAB PO SCH (08:29)
[2016-07-15] MEDS: APIXABAN 2.5 MG TAB PO SCH ×2 (08:29→22:05)
[2016-07-15] MEDS: LISINOPRIL 10 MG TAB PO SCH (09:00)
[2016-07-15] MEDS: POTASSIUM CHLORIDE 20 MEQ TABCR PO SCH ×2 (09:00→22:07)
--- NOTE | 2016-07-15 14:26 | Progress Note ---
Subjective Date of Service: Jul 15, 2016. Subjective Pt evaluation today including: conversation w/ patient, physical exam, lab review, review of inpatient medication list Pain: denies pain PO Intake: no breakfast but she typically eats lunch and dinner Voiding: no voiding problems patient feeling slightly better, OOB in chair this morning, asking when she can go home discussed that she was improving clinically, would transfer to medical floor, change to PO medications discussed that she appears very weak and deconditioned, want therapy notes, she assures me that she can take care of her needs Problem List Medical Problems: (1) CAD (coronary artery disease) Status: Acute (2) COPD exacerbation Status: Acute (3) Dysrhythmia Status: Acute (4) Fever Status: Acute (5) NSTEMI (non-ST elevated myocardial infarction) Status: Acute Review of Systems Constitutional: + fatigue, + weakness Respiratory: + cough, + dyspnea on exertion, + shortness of breath All Other Systems: Reviewed and Negative Medications Current Inpatient Medications Medications (Trade) Dose Ordered Sig/Eileen Route Start Time Stop Time Status Last Admin Dose Admin Ondansetron HCl (Zofran Inj) 4 mg Q6H PRN IV 07/13/16 20:45 08/12/16 20:44 Guaifenesin (Mucinex Contr Rel Tab) 600 mg BID PO 07/13/16 21:00 08/12/16 20:59 07/15/16 08:27 600 MG Budesonide (Pulmicort Respules 0.5MG/ 2ML Neb Soln) 0.5 mg BIDR INH 07/14/16 08:00 08/13/16 07:59 07/15/16 07:32 0.5 MG Acetaminophen (Tylenol Tab) 650 mg Q4H PRN PO 07/13/16 20:45 08/12/16 20:44 Zolpidem Tartrate (Ambien Tab) 5 mg HSZ PRN PO 07/13/16 20:45 08/12/16 20:44 Amiodarone HCl (Cordarone Tab) 200 mg QAM PO 07/14/16 09:00 08/13/16 08:59 07/15/16 08:27 200 MG Apixaban (Eliquis Tab) 2.5 mg BID PO 07/13/16 21:00 08/12/16 20:59 07/15/16 08:29 2.5 MG Aspirin (Ecotrin Tab) 81 mg DAILY PO 07/14/16 09:00 08/13/16 08:59 07/15/16 08:27 81 MG Atorvastatin Calcium (Lipitor Tab) 80 mg DAILY PO 07/14/16 09:00 08/13/16 08:59 07/15/16 08:27 80 MG Lisinopril (Zestril Tab) 10 mg DAILY PO 07/14/16 09:00 08/13/16 08:59 07/14/16 08:52 10 MG Metoprolol Succinate (Toprol Xl Tab) 50 mg QAM PO 07/14/16 09:00 08/13/16 08:59 07/15/16 08:29 50 MG Nitroglycerin (Nitrostat Tab) 0.4 mg UD PRN UT 07/13/16 20:45 08/12/16 20:44 Prednisolone Acetate (Pred Forte 1% Oph Susp) 1 drops QID OPR 07/13/16 21:00 08/12/16 20:59 07/15/16 13:41 1 DROPS Travoprost (Travatan Z) 1 drops HS OPR 07/13/16 21:00 08/12/16 20:59 07/14/16 20:42 1 DROPS Ipratropium [place] (Atrovent 0.02% 0.5MG/2.5ML Neb) 0.5 mg Q6R INH 07/14/16 03:00 08/13/16 02:59 07/15/16 07:01 0.5 MG Levalbuterol (Xopenex 1.25MG/ 0.5ML Neb) 1.25 mg Q6R INH 07/14/16 03:00 08/13/16 02:59 07/15/16 07:01 1.25 MG Ipratropium [place] (Atrovent 0.02% 0.5MG/2.5ML Neb) 0.5 mg Q2H PRN INH 07/13/16 21:15 08/12/16 21:14 Levalbuterol (Xopenex 1.25MG/ 0.5ML Neb) 1.25 mg Q2H PRN INH 07/13/16 21:15 08/12/16 21:14 Insulin Aspart (novoLOG ASPART) SLIDING SCALE If C... ACHS SC 07/14/16 07:00 08/13/16 06:59 07/14/16 16:15 1 UNITS Glucose (Glucose 40% Gel) UD PRN PO 07/14/16 03:15 08/13/16 03:14 Glucose (Glucose Chew Tab) 1 tabs UD PRN PO 07/14/16 03:15 08/13/16 03:14 Dextrose (Dextrose 50% 50ML Syringe) 50 ml UD PRN IV 07/14/16 03:15 08/13/16 03:14 Glucagon (Glucagon Inj) 1 mg UD PRN SQ 07/14/16 03:15 08/13/16 03:14 Potassium Chloride (Klor-Con Tab) 20 meq BID PO 07/15/16 09:00 08/14/16 08:59 07/15/16 09:00 20 MEQ Prednisone (PredniSONE TAB) 40 mg TODAY@1500 ONCE PO 07/15/16 15:00 07/15/16 15:01 Prednisone (PredniSONE TAB) 30 mg DAILY PO 07/16/16 09:00 08/15/16 08:59 Amoxicillin/ Clavulanate Potassium (Augmentin Tab) 875 mg BIDM PO 07/15/16 16:45 07/25/16 16:44 Objective Vital Signs Date Time Temp Pulse Resp B/P Pulse Ox O2 Delivery O2 Flow Rate FiO2 07/15/16 11:13 36.5 74 16 128/55 100 Nasal Cannula 3.0 07/15/16 08:00 Nasal Cannula 3.0 07/15/16 07:43 36.4 95 19 128/67 94 Nasal Cannula 5.0 07/15/16 07:01 71 18 96 Nasal Cannula 3.0 07/15/16 04:02 Nasal Cannula 3.5 07/15/16 04:00 36.9 70 18 122/61 97 Nasal Cannula 07/15/16 02:14 68 18 95 Nasal Cannula 3.0 07/15/16 00:05 36.5 67 18 98/55 98 Nasal Cannula 3.5 07/15/16 00:04 Nasal Cannula 3.5 07/14/16 20:33 66 18 98 Nasal Cannula 3.0 07/14/16 20:05 Nasal Cannula 3.5 07/14/16 19:46 36.6 65 20 127/57 98 Nasal Cannula 4.0 07/14/16 16:00 Nasal Cannula 2.0 07/14/16 15:05 36.7 74 20 121/64 99 Nasal Cannula 3.0 Physical Exam General Appearance: no apparent distress, + thin Eyes: normal inspection, EOMI, sclerae normal ENT: normal ENT inspection, hearing grossly normal, pharynx normal Neck: supple, no adenopathy, no JVD, trachea midline Respiratory/Chest: chest non-tender, no respiratory distress, no accessory muscle use, + decreased breath sounds Cardiovascular: regular rate, rhythm, no edema, no gallop, no JVD, no murmur Abdomen: normal bowel sounds, non tender, soft, no organomegaly Extremities: normal range of motion, non-tender, normal inspection, no pedal edema, no calf tenderness 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, no motor/sensory deficits, alert, normal mood/affect, oriented x 3 Skin: normal color, warm/dry, no rash, + pertinent finding (thin skin) Laboratory Results Last 24 Hours Test 07/14/16 15:23 07/14/16 15:58 07/14/16 20:21 07/15/16 05:21 Total Creatine Kinase 68 U/L Creatine Kinase MB 3.0 ng/ml Creatine Kinase MB Ratio 4.4 Troponin I 0.039 ng/ml Bedside Glucose 168 mg/dl 144 mg/dl White Blood Count 8.50 K/uL Red Blood Count 3.14 M/uL Hemoglobin 9.9 g/dL Hematocrit 30.0 % Mean Corpuscular Volume 95.5 fL Mean Corpuscular Hemoglobin 31.5 pg Mean Corpuscular Hemoglobin Concent 33.0 g/dl Platelet Count 143 K/uL Mean Platelet Volume 10.7 fL Neutrophils (%) (Auto) 92.0 % Lymphocytes (%) (Auto) 4.5 % Monocytes (%) (Auto) 3.3 % Eosinophils (%) (Auto) 0.0 % Basophils (%) (Auto) 0.0 % Neutrophils # (Auto) 7.82 K/uL Lymphocytes # (Auto) 0.38 K/uL Monocytes # (Auto) 0.28 K/uL Eosinophils # (Auto) 0.00 K/uL Basophils # (Auto) 0.00 K/uL RDW Standard Deviation 46.7 fL RDW Coefficient of Variation 13.4 % Immature Granulocyte % (Auto) 0.2 % Immature Granulocyte # (Auto) 0.02 K/uL Sodium Level 139 mmol/L Potassium Level 3.4 mmol/L Chloride Level 103 mmol/L Carbon Dioxide Level 27 mmol/L Anion Gap 9.0 mmol/L Blood Urea Nitrogen 18 mg/dl Creatinine 0.84 mg/dl Est Creatinine Clear Calc Drug Dose 38.2 ml/min Estimated GFR () 81.0 Estimated GFR (Non- 69.9 BUN/Creatinine Ratio 21.7 Random Glucose 160 mg/dl Calcium Level 7.9 mg/dl Magnesium Level 2.1 mg/dl Test 07/15/16 06:20 07/15/16 11:46 Bedside Glucose 148 mg/dl 120 mg/dl Assessment and Plan 70 yo male with COPD, h/o pneumonia, h/o NSTEMI presented with increased dyspnea , productive cough, evidence of LLL pneumonia and wheezing on exam - Pneumonia, technically HCAP since she was hospitalized less than 90 days ago for > 48 hours Vancomycin, Zosyn, Levaquin IV initially, she is improving, will taper to Levaquin and Augmentin today IV fluids stopped, eating and drinking adequately blood cultures no growth, labs stable, still on supplemental oxygen transfer to medical floor, order 2 step for tomorrow, PT/OT ordered - COPD exacerbation; change to Prednisone, give 40mg today and start 30mg daily tomorrow, joselito - Tobacco abuse: again, discussed need to stop smoking, could consider medical therapy outpatient, hold on Wellbutrin for now - Elevated troponin, likely demand ischemia: mild rise and quick fall in troponin, no chest pain, no ischemic changes on EKG continue aspirin, Toprol - Paroxysmal atrial flutter: in NSR on monitor, continue Amiodarone, Toprol, Eliquis - Glaucoma--continue Travatan Z 1 drop OPR HS. Plan: transfer to medical, PT/OT, 2 step tomorrow
[2016-07-15] MEDS: LEVOFLOXACIN 500 MG TAB PO SCH (18:07)
[2016-07-15] MEDS: AMOXICILLIN/CLAVULANATE TAB 875 MG TAB PO SCH (19:09)
[2016-07-15] MEDS: TRAVOPROST Z 0.004% OPH SOLN 2.5 ML BTL OPR SCH (21:28)
[2016-07-16 01:50] VITALS: PULSE 72; O2SAT 96
[2016-07-16] MEDS: IPRATROPIUM BROMIDE NEB SOLN 0.02% 2.5 ML VIAL INH SCH ×2 (01:50→07:48)
[2016-07-16] MEDS: LEVALBUTEROL 1.25MG/0.5ML NEB INH SCH ×2 (01:50→07:48)
[2016-07-16 06:00] LABS: COMPLETE YES; HEMATOCRIT 30.5 % (37-47); IG% 0.3 %; LYMPH % 3.8 %; LYMPH ABS # 0.29 K/uL (1.2-3.4); MEAN CELL VOLUME 96.2 fL (80-100); MEAN CORPUSCULAR HEMOGLOBIN 32.2 pg (25-34); MEAN CORPUSCULAR HGB CONC 33.4 g/dl (32-36); MEAN PLATELET VOLUME 10.8 fL (7.4-10.4); MONO % 4.3 %; NEUT % 91.6 %; PLATELET COUNT 136 K/uL (130-400); RED BLOOD COUNT 3.17 M/uL (4.2-5.4)
[2016-07-16 06:35] LABS: BUN/CREATININE RATIO 23.8 (10-20); CALCIUM 7.9 mg/dl (8.5-10.1); CREATININE 0.72 mg/dl (0.60-1.20); MAGNESIUM 2.1 mg/dl (1.8-2.4); POTASSIUM 4.2 mmol/L (3.5-5.1)
[2016-07-16 07:00] VITALS: BP 129/62; PULSE 85; TEMP 36.6; O2SAT 94
[2016-07-16 07:48] VITALS: PULSE 76; O2SAT 95
[2016-07-16] MEDS: BUDESONIDE 0.5 MG/2 ML VIAL (PULMICORT) INH SCH (07:48)
[2016-07-16] MEDS: INSULIN ASPART 100 UNITS/ML 3 ML PEN SC SCH (08:00)
[2016-07-16] MEDS: AMOXICILLIN/CLAVULANATE TAB 875 MG TAB PO SCH (08:30)
[2016-07-16] MEDS: PrednisoLONE ACET 1% OP SUSP 5 ML BTL OPR SCH (10:01)
[2016-07-16] MEDS: AMIODARONE 200 MG TAB PO SCH (10:02)
[2016-07-16] MEDS: ASPIRIN 81 MG ECTAB PO SCH (10:03)
[2016-07-16] MEDS: METOPROLOL SUCC 50MG EXT REL TAB PO SCH (10:03)
[2016-07-16] MEDS: GUAIFENESIN 600 MG TABCR PO SCH (10:03)
[2016-07-16] MEDS: LISINOPRIL 10 MG TAB PO SCH (10:04)
[2016-07-16] MEDS: ATORVASTATIN 40 MG TAB PO SCH (10:04)
[2016-07-16] MEDS: APIXABAN 2.5 MG TAB PO SCH (10:05)
[2016-07-16] MEDS: POTASSIUM CHLORIDE 20 MEQ TABCR PO SCH (10:05)
[2016-07-16] MEDS: BRINZOLAMIDE-BRIMONIDINE 1-0.2% OPH SUSP OPR SCH (10:08)
[2016-07-16] MEDS ORDERED: PRD10 PO (10:52)
[2016-07-16] MEDS ORDERED: GFNSR600 PO (10:52)
[2016-07-16] MEDS ORDERED: LVQ500 PO (10:52)
--- NOTE | 2016-07-16 11:02 | Discharge Instructions ---
Discharge Instructions Admission Reason for Admission: Copd Exacerbation, Pneumonia Discharge Discharge Diagnosis / Problem: Pneumonia, COPD exacerbation Discharge Goals Goal(s): Decrease discomfort, Improve function Activity Recommendations Activity Limitations: resume your previous activity Lifting Limitations: none Exercise/Sports Limitations: as tolerated Shower/Bathe: no limitations . Instructions / Follow-Up Instructions / Follow-Up Medications - LEVAQUIN: 500mg daily x 4 more days then stop, start tomorrow - PREDNISONE: start tomorrow, take 30mg x 3 days then 20mg x 4 days then 10mg x 4 days then stop - MUCINEX: take twice a day for 10 days - ULTRAM: use as needed for rib pain from coughing, try to use ibuprofen (600mg every 6 hours) first but if still experiencing pain, use Ultram Stay well hydrated, get plenty of rest next few days, try to increase food intake. Use rolling walker at all times when moving around house FOLLOW UP - Pam Umanzor in ONE WEEK for hospital follow up, call to make appointment, Current Hospital Diet Patient's current hospital diet: Regular Diet Discharge Diet Recommended Diet: Regular Diet Pending Studies Studies pending at discharge: no Laboratory Results Last Resulted CBC 07/16/16 05:20 Red Blood Count 3.17, Mean Corpuscular Volume 96.2, Mean Corpuscular Hemoglobin 32.2, Mean Corpuscular Hemoglobin Concent 33.4, Mean Platelet Volume 10.8, Neutrophils (%) (Auto) 91.6, Lymphocytes (%) (Auto) 3.8, Monocytes (%) (Auto) 4.3, Eosinophils (%) (Auto) 0.0, Basophils (%) (Auto) 0.0, Neutrophils # (Auto) 6.96, Lymphocytes # (Auto) 0.29, Monocytes # (Auto) 0.33, Eosinophils # (Auto) 0.00, Basophils # (Auto) 0.00 Last Resulted BMP 07/16/16 05:20 Medical Emergencies . Who to Call and When: Medical Emergencies: If at any time you feel your situation is an emergency, please call 911 immediately. . Non-Emergent Contact Non-Emergency issues call your: Primary Care Provider Call Non-Emergent contact if: you have a fever, you have any medication questions . . "Provider Documentation" section prepared by Talha Terry. VTE Core Measure Inpt VTE Proph given/why not?: Other Anticoagulation (eliquis 2.5mg po bid) [place] Drug Monitoring Program Search Results: no issues identified
[2016-07-16] MEDS ORDERED: TRAM-453 PO (11:03)
[2016-07-16] MEDS: LEVOFLOXACIN 500 MG TAB PO SCH (11:14)
[2016-07-16 11:57] VITALS: BP 129/62; PULSE 76; TEMP 36.6; O2SAT 95
[2016-07-16] MEDS ORDERED: VANCOMYCIN TROUGH SCH (13:30)
--- NOTE | 2016-07-16 15:34 | Discharge Summary ---
Discharge Summary Admission Date: Jul 13, 2016 at 20:44 Discharge Date: Jul 16, 2016 Discharge Disposition: Home Principal Diagnosis: Pneumonia Problems/Secondary Diagnoses: COPD exacerbation Acute hypoxic respiratory failure Paroxysmal atrial fibrillation Immunizations: Have You Had Influenza Vaccine: Yes History of Tetanus Vaccine?: No History of Pneumococcal: No History of Hepatitis B Vaccine: No Procedures: none Consultations: PT/OT Respiratory therapy for 2 step Medication Reconciliation New Medications: Tramadol Hcl (Ultram) 50 Mg Tab 1 TAB PO TID PRN for Pain, #10 TAB Guaifenesin Ext Rel (Mucinex Ext Rel) 600 Mg Tabcr 600 MG PO BID for 10 Days, #20 TABS 0 Refills Levofloxacin (Levofloxacin) 500 Mg Tab 500 MG PO DAILY@11, #4 TAB 0 Refills Prednisone (Prednisone) 10 Mg Tab 30 MG PO UD, #21 TAB 0 Refills Taper: starting tomorrow, take 30mg (3 tabs) daily x 3 days, 20mg daily x 4 days, 10mg daily x 4 days then stop Continued Medications: Amiodarone HCl (Amiodarone HCl) 200 Mg Tab 200 MG PO QAM for 30 Days, #30 TAB Apixaban (Eliquis) 2.5 Mg Tab 2.5 MG PO BID for 30 Days, #60 TAB Aspirin (Aspirin Chewable) 81 Mg Chew 81 MG PO DAILY, TAB Atorvastatin Calcium (Lipitor) 80 Mg Tab 80 MG PO DAILY, TAB Brinzolamide-Brimonidine Tartr (Simbrinza) 1 Rosa Rosa 1 DROP OPR TID Fluticasone Prop/Salmeterol (Advair Diskus 250/50 60 Dose) 1 Ea Aerp 1 PUFF INH BID, INHALER Ipratropium-Albuterol (Duoneb) 3 Ml Nebu 1 TREATMENT INH BID, INHA Ipratropium/Albuterol (Combivent) Aer 2 PUFFS INH Q6, INH Lisinopril (Zestril) 10 Mg Tab 10 MG PO DAILY for 30 Days, #30 TAB Metoprolol Succinate (Metoprolol Succinate ER) 50 Mg Tabcr 50 MG PO QAM for 30 Days Nitroglycerin (Nitrostat) 0.4 Mg Tab 0.4 MG UT PRN, BTL Prednisolone Acetate (Ophth) (Prednisolone Acetate) 1 % Rosa 1 DROP OPR QID for 10 Days, BTL EACH EYE Travoprost (Travatan Z) 0.004 % Jarek 1 DROPS OPR HS, #1 BTL 5 Refills Discharge Exam patient feeling much better today, sitting up in chair more energy, showered and cleaned, feeling like she is ready to go home discussed therapy recommendations for rehab due to balance and fall risk she explained that yesterday she was dizzy during evaluation, no dizziness today she did in fact walk with respiratory therapy without any issues, no dizziness, and she did not require oxygen she said she would refuse a rehab stay even if recommended she plans to rest at home, no plans for a week, just wants to recover and get stronger Review of Systems: Constitutional: + weakness, No chills, No fatigue, No fever, No problem reported, No sweats, No weight loss ENT: No dental problems, No hearing loss, No nasal symptoms, No problem reported, No sore throat, No tinnitus, No trouble swallowing, No unusual epistaxis Respiratory: + cough, + dyspnea on exertion, No dyspnea at rest, No hemoptysis, No shortness of breath, No sputum, No wheezing Cardiovascular: No PND, No chest pain, No claudication, No edema, No orthopnea, No palpitations, No problem reported Abdomen: No GI bleeding, No constipation, No diarrhea, No nausea, No pain, No problem reported, No vomiting Musculoskeletal: No calf pain, No joint pain, No muscle pain, No problem reported, No swelling Genitourinary - Female: No dysuria, No urinary frequency, No urinary incontinence, No urinary urgency Neurologic: No balance problems, No memory loss, No numbness/tingling, No paralysis, No problem reported, No vertigo, No weakness Psychiatric: No anhedonism, No anxiety, No depression symptoms, No insomnia , No problem reported, No substance abuse Endocrine: No excessive thirst, No excessive urination, No fatigue, No problem reported Hematologic / Lymphatic: No abnormal bleeding/bruising, No clotting problems , No night sweats, No problem reported, No swollen lymph nodes Integumentary: No bleeding, No color change, No itch, No new/changing skin lesions, No problem reported, No rash Physical Exam: General Appearance: no apparent distress, + thin Eyes: normal inspection, EOMI, sclerae normal ENT: normal ENT inspection, hearing grossly normal, pharynx normal Neck: supple, no adenopathy, no JVD, trachea midline Respiratory/Chest: chest non-tender, no respiratory distress, no accessory muscle use, + decreased breath sounds, + pertinent finding (barrel chested) Cardiovascular: regular rate, rhythm, no edema, no gallop, no JVD, no murmur , normal peripheral pulses Abdomen / GI: normal bowel sounds, non tender, soft, no organomegaly Extremities: normal inspection, no calf tenderness, normal capillary refill , no pedal edema, normal range of motion, pelvis stable Neurologic/Psychiatric: 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, no motor/sensory deficits , alert, normal mood/affect, normal reflexes, oriented x 3 Skin: normal color, warm/dry, no rash Lymphatic: no adenopathy Hospital Course 70 yo male with COPD, h/o pneumonia, h/o NSTEMI presented with increased dyspnea , productive cough, evidence of LLL pneumonia and wheezing on exam - Pneumonia, technically HCAP since she was hospitalized less than 90 days ago for > 48 hours Vancomycin, Zosyn, Levaquin IV initially, she improved, tapered to Levaquin and Augmentin, Augmentin made her dizzy will d/c on Levaquin 750mg for several more days until completion IV fluids stopped, eating and drinking adequately blood cultures no growth, labs stable, off of oxygen 2 step today showed no need for oxygen at rest or exertion PT/OT recommended rehab, she refuses, also, says she was dizzy when they evaluated her, dizziness resolved - COPD exacerbation; change to Prednisone, give 40mg yesterday, d/c on 30mg with scheduled taper - Tobacco abuse: again, discussed need to stop smoking, could consider medical therapy outpatient, hold on Wellbutrin for now - Elevated troponin, likely demand ischemia: mild rise and quick fall in troponin, no chest pain, no ischemic changes on EKG continue aspirin, Toprol - Paroxysmal atrial flutter: in NSR on monitor, continue Amiodarone, Toprol, Eliquis - Glaucoma--continue Travatan Z 1 drop OPR HS. Plan: d/c to home, told that she NEEDS to make follow up appointment within one week, she said she would do this Total Time Spent: Greater than 30 minutes This includes examination of the patient, discharge planning, medication reconciliation, and communication with other providers. Discharge Instructions Please refer to the electronic Patient Visit Report (Discharge Instructions) for additional information. Follow-Up Pam TUCKER within one week Additional Copies To Pam Umanzor C.R.N.P.
[2017-01-21] MEDS ORDERED: NTRGSL/4 UT (12:16)
[2017-01-21] MEDS ORDERED: ATOR80TA PO (13:05)
== END 2016-07-16 13:20 | disposition home or self-care (01) | DRG 193 ==
LOC: CANRESERV → ENRESERVTM → ENRESERVDT → EDBD 17:11 → C.EDB 17:12 → C.2T 20:44 → C.MSW 07-15 11:05
PROVIDERS: ADMIT Hospitalist; ATTEND Internal Medicine
DX: J18.9 Pneumonia, unspecified organism (principal); J96.00 Acute respiratory failure, unspecified whether with hypoxia or hypercapnia; I24.8 Other forms of acute ischemic heart disease; J44.1 Chronic obstructive pulmonary disease with (acute) exacerbation; J90 Pleural effusion, not elsewhere classified; E78.00 Pure hypercholesterolemia, unspecified; F17.210 Nicotine dependence, cigarettes, uncomplicated; H40.9 Unspecified glaucoma; I10 Essential (primary) hypertension; I25.10 Atherosclerotic heart disease of native coronary artery without angina pectoris; I25.2 Old myocardial infarction; I48.0 Paroxysmal atrial fibrillation; K21.9 Gastro-esophageal reflux disease without esophagitis; I51.7 Cardiomegaly

== ENCOUNTER → 2016-08-09 | Day surgery (SDC) | payer OTHER ==
[2016-07-12 12:49] VITALS: Ht 167.6 cm; Wt 41.4 kg
[~2016-08-09] VITALS: Ht 167.6 cm; Wt 41.4 kg
[~2016-08-09] MED LIST changes: +ADVIN25/60 INH; +AMIO200T4 PO; +APIX1TAB PO; +ASPI81TA28 PO; +ATOR80TA PO; +BRIN3SUS OPR; -CLR10 PO; +CYCLOPENTOLATE HCL 1% OP SOLN PER DROP CHARGE OPR SCH; +ERGO1CAP41 PO; +GFNSR600 PO; +IPRA1AER2 INH; -KETO0.024 OP; +LACTATED RINGER'S 1000ML 500 ML IV SCH; +LIDOCAINE 4% OP SOLN DROP CHARGE OPR SCH; +LISI-461 PO; +METO50TA7 PO; +MOXIFLOXACIN OPH SOLN PER DROP CHARGE OPR SCH; -NAPR-1169 PO; +NTRGSL/4 UT; +PHENYLEPHRINE HCL 2.5% OP SOLN PER DROP CHARGE OPR SCH; +PRD10 PO; +PRED1SUS17 OPR; +PROPARACAINE 0.5% OP SOLN PER DROP CHARGE OPR SCH; +TRAV0.00 OPR; +TROPICAMIDE 1% OP SOLN PER DROP CHARGE OPR SCH; -VLTG EXT
== END | disposition home or self-care (01) ==
LOC: EDSTATUS 09:30 → C.PAT 10:50
PROVIDERS: ATTEND Ophthalmology
DX: H26.9 Unspecified cataract (principal)

== ENCOUNTER → 2016-12-27 | Outpatient (CLI) | payer OTHER ==
[~2016-12-27] MED LIST changes: -CYCLOPENTOLATE HCL 1% OP SOLN PER DROP CHARGE OPR SCH; -ERGO1CAP41 PO; +ERGO500011 PO; -LACTATED RINGER'S 1000ML 500 ML IV SCH; -LIDOCAINE 4% OP SOLN DROP CHARGE OPR SCH; -MOXIFLOXACIN OPH SOLN PER DROP CHARGE OPR SCH; -PHENYLEPHRINE HCL 2.5% OP SOLN PER DROP CHARGE OPR SCH; -PROPARACAINE 0.5% OP SOLN PER DROP CHARGE OPR SCH; -TROPICAMIDE 1% OP SOLN PER DROP CHARGE OPR SCH
[2016-12-27 17:34] LABS: BASO % 0.2 %; BASO ABS # 0.02 K/uL (0-0.2); COMPLETE YES; EOS % 2.1 %; HEMATOCRIT 38.6 % (37-47); IG% 0.2 %; LYMPH % 15.2 %; LYMPH ABS # 1.29 K/uL (1.2-3.4); MEAN CORPUSCULAR HEMOGLOBIN 30.4 pg (25-34); MEAN CORPUSCULAR HGB CONC 32.6 g/dl (32-36); MEAN PLATELET VOLUME 9.6 fL (7.4-10.4); MONO % 9.4 %; NEUT % 72.9 %; PLATELET COUNT 232 K/uL (130-400); RED BLOOD COUNT 4.15 M/uL (4.2-5.4)
[2016-12-28 06:35] LABS: ESTIMATED AVERAGE GLUCOSE 111 mg/dl; HA1C FLAG Normal (Normal)
== END | disposition home or self-care (01) ==
LOC: C.LABBFT 11:54
PROVIDERS: ATTEND Internal Medicine
DX: M81.0 Age-related osteoporosis without current pathological fracture (principal); R73.9 Hyperglycemia, unspecified; D64.9 Anemia, unspecified

== ENCOUNTER 2017-01-21 22:12 | Inpatient (IN) | payer OTHER ==
[~2017-01-21] VITALS: Ht 162.6 cm; Wt 47.0 kg
[~2017-01-21 22:12] MED LIST changes: -AMIO200T4 PO; -APIX1TAB PO; -ASPI81TA28 PO; -ERGO500011 PO; -IPRA1AER2 INH; -LISI-461 PO; -METO50TA7 PO; -TRAM-10 PO
[2017-01-21] MEDS ORDERED: LISI-461 PO (22:51)
[2017-01-21] MEDS ORDERED: METO50TA7 PO (22:51)
[2017-01-21] MEDS ORDERED: APIX1TAB PO (22:51)
[2017-01-21] MEDS ORDERED: TRAM-10 PO (22:51)
[2017-01-21] MEDS ORDERED: AMIO200T4 PO (22:51)
[2017-01-21] MEDS ORDERED: ERGO1CAP41 PO (22:51)
[2017-01-21] MEDS ORDERED: ADVIN25/60 INH (22:51)
[2017-01-21] MEDS ORDERED: ASPI81TA28 PO (22:51)
[2017-01-21] MEDS ORDERED: IPRA1AER2 INH (22:51)
[2017-01-21] MEDS ORDERED: SODIUM CHLORIDE 0.9% 1000ML 1,000 ML IV STA (23:01)
[2017-01-21 23:20] LABS: HEMATOCRIT 36.9 % (37-47); MEAN CELL VOLUME 92.3 fL (80-100); MEAN CORPUSCULAR HEMOGLOBIN 31.3 pg (25-34); MEAN CORPUSCULAR HGB CONC 33.9 g/dl (32-36); PLATELET COUNT 358 K/uL (130-400); WHITE BLOOD COUNT 26.77 K/uL (4.8-10.8)
[2017-01-21 23:28] LABS: BUN/CREATININE RATIO 17.5 (10-20); CALCIUM 8.2 mg/dl (8.5-10.1); CREATININE 3.3 mg/dl (0.60-1.20); MAGNESIUM 1.8 mg/dl (1.8-2.4); POTASSIUM 3.2 mmol/L (3.5-5.1)
[2017-01-22] VITALS (16 sets, daily range): BP systolic 82–123; BP diastolic 30–99; PULSE 74–87; TEMP 36.6–37.5; O2SAT 78–96; Ht 162.6 cm; Wt 47.0 kg
[2017-01-22] MEDS ORDERED: PIPERACILLIN/TAZOBACTAM 4.5 GM/100ML D5W IV STA (00:01)
--- NOTE | 2017-01-22 00:20 | EMERGENCY ROOM VISIT NOTE ---
ED Visit Note First contact with patient: 22:46 I did evaluate and examine this patient myself. I did guide management for the patient. I agree with the APC's assessment as discussed. Please see the APC's dictation for further details. I did independently review the CT scan, x-rays and blood work. The patient has acute renal failure, hyponatremia and leukocytosis. Her chest x-ray demonstrates significant infiltrate on the right lung. She was given Zosyn and she will be hospitalized.
[2017-01-22 00:25] LABS: BASO ABS # 0.01 K/uL (0-0.2); COMPLETE YES; DOHLE BODIES OCCASIONAL; ECHINOCYTES 2+; IG% 0.6 %; LYMPH % 3.5 %; LYMPH ABS # 0.95 K/uL (1.2-3.4); MONO % 6.5 %; NEUT % 89.4 %; OVALOCYTES 1+; VACUOLIZATION 1+
[2017-01-22 00:57] LABS: URINE APPEARANCE CLOUDY (CLEAR); URINE COLOR DK YELLOW; URINE EPITHELIAL CELL AUTO >30 /lpf (0-5); URINE NITRITE NEG (NEG); UROBILINOGEN NEG (NEG); ZZURINE CULT IF INDIC CATH NO
[2017-01-22 01:13] LABS: MANUAL MICROSCOPIC REQUIRED? NO; REVIEW REQ? YES; URINE BILIRUBIN NEG (NEG)
[2017-01-22 01:26] LABS: URINE PATH CASTS 5-10 GRANULAR CASTS /lpf (0)
[2017-01-22] MEDS ORDERED: SODIUM CHLORIDE 0.9% 1000ML 1,000 ML IV STA (01:31)
--- NOTE | 2017-01-22 02:18 | EMERGENCY ROOM VISIT NOTE ---
History First contact with patient: 22:46 Chief Complaint: DIARRHEA Stated Complaint: WEAKNESS/DIARRHEA Nursing Triage Summary: Diarrhea, nausea, weakness since . More weak today. Pt thinks she's dehydrated. Shaky, states she's cold. No pain. Throat hurts to swallow. History of Present Illness The patient is a 71 year old female who presents to the Emergency Room with complaints of diarrhea and weakness. The patient reports she first began feeling ill 4 days ago. She states that she has had diarrhea and generalized weakness. Her family reports that she is more shaky than usual. She has been lightheaded when standing up and walking. She states that she has an ulcer in her mouth which has been making it difficult to eat. She also reports a mild sore throat with swallowing. She has had 3 episodes of diarrhea yesterday and 3 episodes of diarrhea today. She has not had much of an oral intake. She reports a cramping pain in her lower abdomen which does get better when she has a bowel movement. She reports nausea, but no vomiting. The patient reports a history of hospitalization for pneumonia several months ago. She has a history of NC and COPD. She denies history of diabetes. She denies chest pain, shortness of breath, fever, urinary symptoms, headache or neck pain. Review of Systems A complete 10 point review of systems was reviewed with the patient with pertinent positives and negatives as per history of present illness. All else were negative. Past Medical/Surgical History Medical Problems: (1) ACS (acute coronary syndrome) (2) Anxiety (3) ARF (acute renal failure) (4) Bronchitis (5) Cardiac stent x2 (6) COPD exacerbation (7) Diarrhea (8) Emphysema (9) Gastroesophageal reflux disease (10) Hyperlipidemia (11) Hypotension (12) Hysterectomy (13) Junctional rhythm (14) Migraines (15) Myocardial infarction (16) Pneumonia (17) Shortness of breath (18) Ulcers Family History No pertinent family history Social History Smoking Status: Former Smoker Alcohol Use: none Drug Use: none Marital Status: Housing Status: lives with family Occupation Status: retired Current/Historical Medications Scheduled Amiodarone Hcl (Cordarone), 200 MG PO DAILY Apixaban (Eliquis), 2.5 MG PO BID Aspirin (Aspirin Ec), 81 MG PO DAILY Atorvastatin Calcium (Lipitor), 80 MG PO DAILY Ergocalciferol (Vitamin D 56050 Unit), 1 TAB PO WK Fluticasone Prop/Salmeterol (Advair Diskus 250/50 60 Dose), 1 PUFF INH BID Ipratropium-Albuterol (Combivent Respimat), 1 PUFFS INH QID Lisinopril (Zestril), 10 MG PO DAILY Metoprolol Succ (Toprol Xl) (Toprol-Xl), 50 MG PO DAILY Nitroglycerin (Nitrostat), 0.4 MG UT PRN Scheduled PRN Ipratropium-Albuterol (Duoneb), 1 TREATMENT INH Q4 PRN for SOB/Wheezing Tramadol (Ultram), 50-100 MG PO Q6 PRN for Pain Allergies Coded Allergies: Sulfa Antibiotics (Verified Allergy, Unknown, SWELLING, 07/13/16) Physical Exam Vital Signs Date Time Temp Pulse Resp B/P (MAP) Pulse Ox O2 Delivery O2 Flow Rate FiO2 01/22/17 02:36 74 28 98 01/22/17 02:31 95/37 01/22/17 02:21 75 17 92 01/22/17 02:16 88/43 01/22/17 02:06 78 26 95 01/22/17 02:01 93/32 01/22/17 01:51 78 19 92 01/22/17 01:46 82/41 01/22/17 01:36 83 25 96 01/22/17 01:31 85/36 01/22/17 01:25 86/36 01/22/17 01:06 78 25 95 01/22/17 01:01 95/48 01/22/17 00:55 81 24 96 01/22/17 00:47 110/34 01/22/17 00:40 86 32 98 01/22/17 00:31 112/60 01/22/17 00:25 85 24 96 01/22/17 00:17 114/54 01/22/17 00:10 83 29 95 01/22/17 00:01 92/43 01/21/17 23:55 82 29 93 01/21/17 23:40 85 24 94 01/21/17 23:31 93/45 01/21/17 23:25 85 22 93 01/21/17 23:22 85 27 93 01/21/17 23:20 93/48 01/21/17 23:12 87 29 83/40 01/21/17 22:57 89 27 92 01/21/17 22:42 92 28 93 01/21/17 22:41 113/48 01/21/17 22:40 91 01/21/17 22:27 91 25 92 01/21/17 22:25 93 Nasal Cannula 2.0 01/21/17 22:23 133/45 01/21/17 22:20 37.0 90 27 133/45 88 Room Air Physical Exam VITALS: Vitals are noted on the nurse's note and reviewed by myself. Vital signs stable. GENERAL: This is a 71-year-old female, cachectic appearing, in no acute distress. HEAD: Normocephalic atraumatic. EARS: External auditory canals clear, tympanic membranes pearly [place]on without erythema or effusion bilaterally. EYES: Pupils equal round and reactive to light and accommodation. MOUTH: Mucous membranes very dry. There is an aphthous ulcer to the inside of the lower lip. NECK: Supple without nuchal rigidity. HEART: Regular rate and rhythm without murmurs gallops or rubs. LUNGS: Crackles heard throughout the right lung. ABDOMEN: Soft, minimal tenderness of the left lower quadrant. No guarding or rebound tenderness. NEURO: Patient was alert and oriented to person and place. Medical Decision & Procedures ER Provider Diagnostic Interpretation: CHEST X-RAY: Large right middle and lower lobe infiltrate vs mass. CT ABDOMEN & PELVIS: Evaluation limited by motion artifact. Airspace disease right lung base posteriorly, suggesting possible pneumonia. Emphysema. Rectosigmoid anastomosis. No evidence of diverticulitis. Appendix not identified. Hysterectomy. Likely calcified granuloma and spleen. Skeletal worsens otherwise unremarkable unenhanced appearance. No free air or free fluid. No evidence of bowel objection. Severe atherosclerotic calcifications of the aorta and its branches. Multilevel degenerative changes of the lumbar spine. Radiologist: Bo Ortiz MD CT CHEST WITHOUT CONTRAST: Extensive airspace disease involving the right lower lobe, compatible with pneumonia in the appropriate clinical setting. Severe emphysema. Atherosclerotic calcifications of the aorta and its branches including coronary arteries. Heart is not enlarged. Radiologist: Bo Ortiz MD Laboratory Results 01/21/17 21:51 Red Blood Count 4.00, Mean Corpuscular Volume 92.3, Mean Corpuscular Hemoglobin 31.3, Mean Corpuscular Hemoglobin Concent 33.9, Mean Platelet Volume 10.0, Neutrophils (%) (Auto) 89.4, Lymphocytes (%) (Auto) 3.5, Monocytes (%) (Auto) 6.5, Eosinophils (%) (Auto) 0.0, Basophils (%) (Auto) 0.0, Neutrophils # (Auto) 23.92, Lymphocytes # (Auto) 0.95, Monocytes # (Auto) 1.73, Eosinophils # (Auto) 0.00, Basophils # (Auto) 0.01 Test 01/21/17 21:51 01/22/17 00:00 01/22/17 00:43 White Blood Count 26.77 K/uL (4.8-10.8) Red Blood Count 4.00 M/uL (4.2-5.4) Hemoglobin 12.5 g/dL (12.0-16.0) Hematocrit 36.9 % (37-47) Mean Corpuscular Volume 92.3 fL (80-100) Mean Corpuscular Hemoglobin 31.3 pg (25-34) Mean Corpuscular Hemoglobin Concent 33.9 g/dl (32-36) Platelet Count 358 K/uL (130-400) Mean Platelet Volume 10.0 fL (7.4-10.4) Neutrophils (%) (Auto) 89.4 % Lymphocytes (%) (Auto) 3.5 % Monocytes (%) (Auto) 6.5 % Eosinophils (%) (Auto) 0.0 % Basophils (%) (Auto) 0.0 % Neutrophils # (Auto) 23.92 K/uL (1.4-6.5) Lymphocytes # (Auto) 0.95 K/uL (1.2-3.4) Monocytes # (Auto) 1.73 K/uL (0.11-0.59) Eosinophils # (Auto) 0.00 K/uL (0-0.5) Basophils # (Auto) 0.01 K/uL (0-0.2) RDW Standard Deviation 45.1 fL (36.4-46.3) RDW Coefficient of Variation 13.3 % (11.5-14.5) Immature Granulocyte % (Auto) 0.6 % Immature Granulocyte # (Auto) 0.16 K/uL (0.00-0.02) Toxic Vacuolation 1+ Dohle Bodies OCCASIONAL Ovalocytes 1+ Echinocytes 2+ Total Bilirubin 0.9 mg/dl (0.2-1) Direct Bilirubin 0.4 mg/dl (0-0.2) Aspartate Amino Transf (AST/SGOT) 174 U/L (15-37) Alanine Aminotransferase (ALT/SGPT) 153 U/L (12-78) Alkaline Phosphatase 122 U/L (45-117) Total Creatine Kinase 179 U/L (26-192) Troponin I 0.045 ng/ml (0-0.045) Total Protein 6.8 gm/dl (6.4-8.2) Albumin 2.6 gm/dl (3.4-5.0) Bedside Lactic Acid Venous 1.87 mmol/L (0.90-1.70) Urine Color DK YELLOW Urine Appearance CLOUDY (CLEAR) Urine pH 5.0 (4.5-7.5) Urine Specific [place] 1.020 (1.000-1.030) Urine Protein 2+ (NEG) Urine Glucose (UA) NEG (NEG) Urine Ketones TRACE (NEG) Urine Occult Blood 1+ (NEG) Urine Nitrite NEG (NEG) Urine Bilirubin NEG (NEG) Urine Urobilinogen NEG (NEG) Urine Leukocyte Esterase NEG (NEG) Urine WBC (Auto) 5-10 /hpf (0-5) Urine RBC (Auto) 5-10 /hpf (0-4) Urine Hyaline Casts (Auto) >30 /lpf (0-5) Urine Epithelial Cells (Auto) >30 /lpf (0-5) Urine Bacteria (Auto) 1+ (NEG) Urine Renal Epithelial Cells /lpf (0-5) Urine Pathogenic Casts 5-10 GRANULAR CASTS /lpf (0) Medications Administered Medications (Trade) Dose Ordered Sig/Eileen Route Start Time Stop Time Status Last Admin Dose Admin Sodium Chloride 1,000 ml @ 999 mls/hr Q1H1M STAT IV 01/21/17 23:01 01/22/17 00:01 DC 01/21/17 23:15 999 MLS/HR Piperacillin Sod/ Tazobactam Sod (Zosyn Iv) 4.5 gm NOW STAT IV 01/22/17 00:01 01/22/17 00:03 DC 01/22/17 00:57 4.5 GM Sodium Chloride 1,000 ml @ 999 mls/hr Q1H1M STAT IV 01/22/17 01:31 01/22/17 02:31 DC 01/22/17 01:31 999 MLS/HR ECG Indication: weakness Rate (beats per minute): 88 Findings: no acute ischemic change, no ectopy, other (rightward axis) Change: no significant change ED Course The patient was evaluated as above. Labs were drawn and IV access was obtained. Blood cultures were drawn 2. Patient was medicated with 1 L normal saline solution. Patient was given a second liter normal saline solution and a dose of Zosyn due to significant leukocytosis and hypotension. Patient was reevaluated and findings were discussed. She is well-appearing. She has responded to fluids. Case was discussed with the [facility] hospitalist, Dr. Pugh. They agreed to evaluate the patient for admission. Medical Decision Differential diagnosis includes sepsis, metabolic abnormality, cardiac disease, pneumonia, malignancy, among others. The patient is a 71-year-old female who presents today complaining of weakness and diarrhea. Patient was hypotensive on arrival but did respond to fluids. Labs revealed a significant leukocytosis of 26,000. Lactic acid is minimally elevated. Patient is hyponatremic. She does have an anion gap. Creatinine is 3.3 which is new for the patient. LFTs are elevated. Urinalysis was not suggestive of infection. Chest x-ray shows a large right-sided infiltrate or possible mass. CT of the abdomen/pelvis was performed and shows no acute findings. Patient was given initial dose of Zosyn. CT of the chest was ordered to rule out a mass given the unusual appearance of the right lung infiltrates. Patient was reassessed after fluids and was well-appearing. Her blood pressure responded well and stabilized. Patient is very cachectic appearing and I do feel there are some social issues, as the patient is developing some pressure ulcers and is significantly dehydrated. Patient will require further workup in the hospital. She will be admitted to the [facility]ist service. The patient was independently evaluated by Dr. Wang, ED attending physician, who agreed with my assessment and treatment plan. Medication reconciliation: I attest that I have personally reviewed the patient 's current medication list. Blood pressure screening: Patient's blood pressure was low and will be monitored by the hospitalist.. Impression Primary Impression: Pneumonia Additional Impressions: Acute kidney failure Hypotension Departure Information Referrals Dustin Dominguez M.D. (PCP) Patient Instructions My [facility] Problem Qualifiers
[2017-01-22] MEDS ORDERED: MAGNESIUM HYDROXIDE SUSP 30 ML UDC PO PRN (02:45)
[2017-01-22] MEDS ORDERED: ALUMINUM/MAGNESIUM/SIMETH (MAALOX MAX) 30 ML UDC PO PRN (02:45)
[2017-01-22] MEDS ORDERED: NITROGLYCERIN 0.4 MG SL PER TAB CHARGE UT SCH (02:45)
[2017-01-22] MEDS ORDERED: ONDANSETRON INJ 2 MG/ML 2 ML VIAL IV PRN (02:45)
[2017-01-22] MEDS ORDERED: ACETAMINOPHEN 325 MG TAB PO PRN (02:45)
[2017-01-22] MEDS ORDERED: POLYETHYLENE (MIRALAX) 17 GM PACK PO PRN (02:45)
[2017-01-22] MEDS: ALBUT/IPRATROP 3MG/0.5MG NEB 3 ML VIAL INH SCH ×3 (02:55→18:58)
--- NOTE | 2017-01-22 04:01 | History and Physical ---
History & Physical Date & Time of Service: Jan 22, 2017 at 03:16 Chief Complaint: Weakness/Diarrhea Primary Care Physician: Dustin Dominguez M.D. History of Present Illness Source: patient 71 y/o F Paroxysmal Aflutter, chronic systolic CHF, advanced COPD, CAD, dementia. Pt presents with 4-5 days of diarrhea and poor PO intake. She has become progressively weak and "shaky" per family. The pt states that she has an oral ulcer which makes eating painful in addition to a sore throat. She has occasional lower abdominal pain which resolves following a bowel movement. She denied a productive cough, SOB above baseline, CP or fevers. The pt was hypotensive on arrival to the ER and has responded to a fluid bolus. Initial labs are notable for ARF, hyponatremia and marked leukocytosis. A CT abdomen did not reveal any acute findings. A CXR shows a large consolidation in her R lung which was not present on imaging 06/30. Past Medical/Surgical History 1) Paroxysmal atrial flutter - on Apixaban 2) CAD - history of TN and stent x 2 3) CHF - recent echo with EF30-35% - inferior wall akinesis 4) Malnourished 5) COPD 6) HPL 7) GERD Surgical 1) Rectosigmoid anastomosis 2) Hysterectomy Family History No pertinent family history Social History Smoking Status: Former Smoker Drug Use: none Marital Status: Housing status: lives with family Occupational Status: retired Immunizations History of Influenza Vaccine: Yes History of Tetanus Vaccine?: No History of Pneumococcal: No History of Hepatitis B Vaccine: No Multi-Drug Resistant Organisms History of MDRO: Yes Allergies Coded Allergies: Sulfa Antibiotics (Verified Allergy, Unknown, SWELLING, 07/13/16) Home Medications Scheduled Amiodarone Hcl (Cordarone), 200 MG PO DAILY Apixaban (Eliquis), 2.5 MG PO BID Aspirin (Aspirin Ec), 81 MG PO DAILY Atorvastatin Calcium (Lipitor), 80 MG PO DAILY Ergocalciferol (Vitamin D 97286 Unit), 1 TAB PO WK Fluticasone Prop/Salmeterol (Advair Diskus 250/50 60 Dose), 1 PUFF INH BID Ipratropium-Albuterol (Combivent Respimat), 1 PUFFS INH QID Lisinopril (Zestril), 10 MG PO DAILY Metoprolol Succ (Toprol Xl) (Toprol-Xl), 50 MG PO DAILY Nitroglycerin (Nitrostat), 0.4 MG UT PRN Scheduled PRN Ipratropium-Albuterol (Duoneb), 1 TREATMENT INH Q4 PRN for SOB/Wheezing Tramadol (Ultram), 50-100 MG PO Q6 PRN for Pain Review of Systems Constitutional: + weight loss, + weakness, + fatigue, No fever, No chills, No sweats Eyes: No worsening of vision ENT: + problem reported (Mouth ulcer), No hearing loss, No nasal symptoms Respiratory: + shortness of breath (chroinc), No cough, No sputum, No wheezing Cardiovascular: No chest pain, No orthopnea, No PND Abdomen: + pain, + nausea, + diarrhea, No vomiting, No constipation Musculoskeletal: No joint pain Genitourinary - Female: No dysuria, No urinary frequency, No urinary urgency Neurologic: + memory loss (chronic), + weakness, No paralysis Psychiatric: No depression symptoms Endocrine: No fatigue Hematologic / Lymphatic: No abnormal bleeding/bruising Integumentary: No rash Allergic / Immunologic: No environmental allergies Physical Exam Vital Signs Date Time Temp Pulse Resp B/P (MAP) Pulse Ox O2 Delivery O2 Flow Rate FiO2 01/22/17 02:01 93/32 01/22/17 01:51 78 19 92 01/22/17 01:46 82/41 01/22/17 01:36 83 25 96 01/22/17 01:31 85/36 01/22/17 01:25 86/36 01/22/17 01:06 78 25 95 01/22/17 01:01 95/48 01/22/17 00:55 81 24 96 01/22/17 00:47 110/34 01/22/17 00:40 86 32 98 01/22/17 00:31 112/60 01/22/17 00:25 85 24 96 01/22/17 00:17 114/54 01/22/17 00:10 83 29 95 01/22/17 00:01 92/43 01/21/17 23:55 82 29 93 01/21/17 23:40 85 24 94 01/21/17 23:31 93/45 01/21/17 23:25 85 22 93 01/21/17 23:22 85 27 93 01/21/17 23:20 93/48 01/21/17 23:12 87 29 83/40 01/21/17 22:57 89 27 92 01/21/17 22:42 92 28 93 01/21/17 22:41 113/48 01/21/17 22:40 91 01/21/17 22:27 91 25 92 01/21/17 22:23 133/45 01/21/17 22:20 37.0 90 27 133/45 88 Room Air General Appearance: + pertinent finding (Pleasant , emaciated, slightly confused, elderly female in no distress) Head: normocephalic, atraumatic Eyes: normal inspection, EOMI ENT: normal ENT inspection, pharynx normal Neck: supple, no JVD Respiratory/Chest: chest non-tender, + pertinent finding (Very poor b/l air movement - no ) Cardiovascular: regular rate, rhythm, no edema, no gallop, + pertinent finding (faint heart sounds) Abdomen/GI: normal bowel sounds, non tender, soft Back: normal inspection, no CVA tenderness, no muscle spasm Extremities/Musculoskelatal: normal inspection, no calf tenderness, normal capillary refill, no pedal edema, normal range of motion Neurologic/Psych: bronzer II-XII nml as tested, no motor/sensory deficits, alert, + pertinent finding (oriented x 1.5) Skin: normal color, warm/dry, + pertinent finding (Stage 2 decub) Diagnostics Laboratory Results Results Past 24 Hours Test 01/21/17 21:51 01/22/17 00:00 01/22/17 00:43 Range/Units White Blood Count 26.77 4.8-10.8 K/uL Red Blood Count 4.00 4.2-5.4 M/uL Hemoglobin 12.5 12.0-16.0 g/dL Hematocrit 36.9 37-47 % Mean Corpuscular Volume 92.3 80-100 fL Mean Corpuscular Hemoglobin 31.3 25-34 pg Mean Corpuscular Hemoglobin Concent 33.9 32-36 g/dl Platelet Count 358 130-400 K/uL Mean Platelet Volume 10.0 7.4-10.4 fL Neutrophils (%) (Auto) 89.4 % Lymphocytes (%) (Auto) 3.5 % Monocytes (%) (Auto) 6.5 % Eosinophils (%) (Auto) 0.0 % Basophils (%) (Auto) 0.0 % Neutrophils # (Auto) 23.92 1.4-6.5 K/uL Lymphocytes # (Auto) 0.95 1.2-3.4 K/uL Monocytes # (Auto) 1.73 0.11-0.59 K/uL Eosinophils # (Auto) 0.00 0-0.5 K/uL Basophils # (Auto) 0.01 0-0.2 K/uL RDW Standard Deviation 45.1 36.4-46.3 fL RDW Coefficient of Variation 13.3 11.5-14.5 % Immature Granulocyte % (Auto) 0.6 % Immature Granulocyte # (Auto) 0.16 0.00-0.02 K/uL Toxic Vacuolation 1+ Dohle Bodies OCCASIONAL Ovalocytes 1+ Echinocytes 2+ Sodium Level 129 136-145 mmol/L Potassium Level 3.2 3.5-5.1 mmol/L Chloride Level 92 98-107 mmol/L Carbon Dioxide Level 19 21-32 mmol/L Anion Gap 18.0 3-11 mmol/L Blood Urea Nitrogen 58 7-18 mg/dl Creatinine 3.30 0.60-1.20 mg/dl Est Creatinine Clear Calc Drug Dose 9.3 ml/min Estimated GFR () 15.4 Estimated GFR (Non- 13.3 BUN/Creatinine Ratio 17.5 10-20 Random Glucose 130 70-99 mg/dl Calcium Level 8.2 8.5-10.1 mg/dl Magnesium Level 1.8 1.8-2.4 mg/dl Total Bilirubin 0.9 0.2-1 mg/dl Direct Bilirubin 0.4 0-0.2 mg/dl Aspartate Amino Transf (AST/SGOT) 174 15-37 U/L Alanine Aminotransferase (ALT/SGPT) 153 12-78 U/L Alkaline Phosphatase 122 45-117 U/L Total Creatine Kinase 179 26-192 U/L Troponin I 0.045 0-0.045 ng/ml Total Protein 6.8 6.4-8.2 gm/dl Albumin 2.6 3.4-5.0 gm/dl Bedside Lactic Acid Venous 1.87 0.90-1.70 mmol/L Urine Color DK YELLOW Urine Appearance CLOUDY CLEAR Urine pH 5.0 4.5-7.5 Urine Specific [place] 1.020 1.000-1.030 Urine Protein 2+ NEG Urine Glucose (UA) NEG NEG Urine Ketones TRACE NEG Urine Occult Blood 1+ NEG Urine Nitrite NEG NEG Urine Bilirubin NEG NEG Urine Urobilinogen NEG NEG Urine Leukocyte Esterase NEG NEG Urine WBC (Auto) 5-10 0-5 /hpf Urine RBC (Auto) 5-10 0-4 /hpf Urine Hyaline Casts (Auto) >30 0-5 /lpf Urine Epithelial Cells (Auto) >30 0-5 /lpf Urine Bacteria (Auto) 1+ NEG Urine Renal Epithelial Cells 0-5 /lpf Urine Pathogenic Casts 5-10 GRANULAR CASTS 0 /lpf Microbiology Results 01/21/17 Blood Culture, Received Pending 01/21/17 Blood Culture, Received Pending Diagnostic Radiology CXR: Large consolidation in R lung - mid and lower lobe CT abdomen: Rectosigmoid anastomosis - no acute process EKG Sinus - borderline R axis - no acute ischemic changes Impression Assessment and Plan 71 y/o F Paroxysmal Aflutter, chronic systolic CHF, advanced COPD, CAD, dementia. Pt presents with 4-5 days of diarrhea and poor PO intake. She has become progressively weak and "shaky" per family. The pt states that she has an oral ulcer which makes eating painful in addition to a sore throat. She has occasional lower abdominal pain which resolves following a bowel movement. She denied a productive cough, SOB above baseline, CP or fevers. The pt was hypotensive on arrival to the ER and has responded to a fluid bolus. Initial labs are notable for ARF, hyponatremia and marked leukocytosis. A CT abdomen did not reveal any acute findings. A CXR shows a large consolidation in her R lung which was not present on imaging 06/30. 1) Diarrhea, weakness, hypotension - we will obtain stool cultures and test for Cdiff. Pt placed on a clear diet. Fluid resuscitation provided. 2) Lung mass or infiltrate. She does not have typical pneumonia symptoms. Due to her leukocytosis, mild lactic acidosis and hypotension she will be treated with Unasyn and Zithro pending culture results. A chest CT is pending at the time of admission. 3) ARF - likely prerenal - IV fluids provided - repeat electrolytes at 6 hr intervals. KIARA held. 4) COPD - provided with Duonebs, Albuterol, 02 protocol - steroids are not clinically indicated at present. 5) CHF - careful monitoring of volume status will be necessary to avoid overload as her EF is 30-35% - Her Bblocker is held due to hypotension and should be restarted when possible. Lisinopril is held. 6) A flutter - sinus rhythm on admission - Apixaban held due to ARF - restart when improved - restart Metoprolol when BP stabilizes. 7) Cachexia - pt's weight needs to be addressed - when her abdominal pain and diarrhea resolve she should be provided with supplements and consider Megace. Full code - anticoagulated with Apixaban Total time for this admit including review of labs, meds, imaging, EKG, records - discussion with pt and ER attending 42 min Resuscitation Status FULL RESUSCITATION VTE Prophylaxis VTE Risk Assessment Done? Y/N: Yes Risk Level: Moderate Given or contraindicated: Other Anticoagulation
[2017-01-22] MEDS ORDERED: SODIUM CHLORIDE 0.9% 1000ML 1,000 ML IV SCH (04:30)
[2017-01-22] MEDS ORDERED: AMPICILLIN/SULBACTAM CONSULT ACTIVE PRN ×2 (04:30)
[2017-01-22] MEDS: AZITHROMYCIN IV 500 MG in DEXTROSE 5% 250ML 250 ML IV SCH (04:38)
[2017-01-22] MEDS ORDERED: AMPICILLIN/SULBACTAM SOD INJ 1,500 MG in SODIUM CHLORIDE 0.9% 100ML 100 ML IV SCH (06:00)
[2017-01-22 06:32] LABS: BUN/CREATININE RATIO 24.2 (10-20); CREATININE 2.2 mg/dl (0.60-1.20); MAGNESIUM 1.6 mg/dl (1.8-2.4); PHOSPHORUS 3.2 mg/dl (2.5-4.9); POTASSIUM 2.6 mmol/L (3.5-5.1)
[2017-01-22 06:47] LABS: CALCIUM 6.4 mg/dl (8.5-10.1)
--- NOTE | 2017-01-22 06:54 | DIAGNOSTIC IMAGING REPORT ---
CHEST ONE VIEW PORTABLE CLINICAL HISTORY: Weakness. COMPARISON STUDY: Chest radiograph July 13, 2016. FINDINGS: Severe emphysema is noted. There is no pneumothorax. Dense right midlung consolidation is present. Cardiac size is normal. There is no evidence of pulmonary edema. IMPRESSION: 1. Dense right midlung consolidation and right lower lung airspace opacity which suggests pneumonia. Lucencies within the consolidation could reflect emphysematous lung or areas of necrosis/cavitation. Radiographic follow up to ensure resolution is recommended. 2. Severe emphysema. Electronically signed by: Hernan Batista M.D. 01/22/2017 6:53 AM Dictated Date/Time: 01/22/2017 6:50 AM
--- NOTE | 2017-01-22 07:29 | DIAGNOSTIC IMAGING REPORT ---
ABD/PELVIS NO IV OR ORAL CONT HISTORY:71 yearsFemalellq pain, diarrhea COMPARISON: CT chest of same day. TECHNIQUE: Multiple axial CT images of the abdomen and pelvis were obtained without contrast. FINDINGS: Moderate airspace consolidation present within the dependent right lower lobe. There is underlying moderate emphysema of the imaged lung bases. Patient motion moderately limits the study. There is no gross pneumoperitoneum. Coronary arterial calcifications are partially imaged. There is decreased attenuation of the cardiac blood pool suggesting underlying anemia. There is increased attenuation of the liver measuring up to 78 Hounsfield units. Focal calcification of the spleen is seen. Prior cholecystectomy. Pancreas and adrenal glands are within normal limits. Kidneys are within normal limits. There are bladder is collapsed. Prior hysterectomy. There is severe atherosclerotic plaquing of the aorta and its branches. No bulky adenopathy of the abdomen or pelvis identified. No bowel obstruction. Prior rectosigmoid anastomosis. No large volume ascites. The bones are mildly demineralized. Intervertebral disc space narrowing is seen at L4-L5 and L5-S1. IMPRESSION: 1. Moderately limited exam secondary to patient motion. No acute intra-abdominal or intrapelvic abnormality identified. 2. Moderate consolidation of the basal right lower lobe suggests underlying pneumonia or aspiration pneumonitis on a background of emphysema. 3. Increased attenuation of the liver on this noncontrast study is a nonspecific finding. Differential considerations would include hemachromatosis, hemosiderosis or sequela of different medications such as amiodarone or gold therapy. The above report was generated using voice recognition software. It may contain grammatical, syntax or spelling errors. Electronically signed by: Abdifatah To 01/22/2017 7:28 AM Dictated Date/Time: 01/22/2017 7:17 AM
--- NOTE | 2017-01-22 07:35 | DIAGNOSTIC IMAGING REPORT ---
(CHEST) THORAX WITHOUT HISTORY:71 yearsFemaleright lung infiltrate vs mass COMPARISON: CT abdomen and pelvis of same day, chest radiograph 01/21/2017. TECHNIQUE: Multiple axial CT images of the chest were obtained without IV contrast. FINDINGS: There is no focal thyroid nodule. There is mild precarinal and subcarinal lymph nodes measure up to 1.5 x 1.1 cm and 2.2 x 0.9 cm respectively. Cardiac silhouette is within normal limits. There is decreased attenuation of the cardiac blood pool which suggests underlying anemia. Three-vessel coronary arterial calcifications are seen. There is severe atherosclerosis of the aorta and its branches. There is no pneumothorax. Biapical pleural parenchymal scarring is noted in subsegmental distributions. Severe centrilobular emphysematous changes are present. Extensive alveolar opacities are present throughout the right lower lobe in multiple segments, notably the superior segment and the posterior basal segments. There are central air bronchograms without obstructing mass identified. Evaluation of the upper abdominal structures demonstrates homogeneously increased attenuation of the liver. Soft tissues are unremarkable. The bones are moderately demineralized. IMPRESSION: 1. Extensive alveolar opacities throughout the right lower lobe in a multi segmental distribution suggests pneumonia. Follow-up imaging after treatment recommended to document clearing. 2. Background severe emphysema. 3. Mild mediastinal adenopathy is likely reactive. 4. Decreased attenuation of the cardiac blood pool suggests underlying anemia. The above report was generated using voice recognition software. It may contain grammatical, syntax or spelling errors. Electronically signed by: Abdifatah To 01/22/2017 7:33 AM Dictated Date/Time: 01/22/2017 7:28 AM
[2017-01-22] MEDS ORDERED: PNEUMOCOCCAL POLYSACCHARIDES 25 MCG/0.5 ML VIAL/SYR IM. ONE (08:00)
[2017-01-22] MEDS ORDERED: PNEUMOCOCCAL ADMINISTRATION CHARGE ONE (08:00)
[2017-01-22] MEDS: POTASSIUM CHLR 10 MEQ / WTR 10 MEQ in PREMIXED WATER 100 ML IV SCH ×4 (08:23→11:26)
[2017-01-22] MEDS: MAGNESIUM SULFATE 1GM / D5W 1 GM in PREMIXED IN D5W 100 ML IV SCH ×2 (08:24→09:18)
[2017-01-22] MEDS: POTASSIUM CHLORIDE INJ 40 MEQ in SODIUM CHLORIDE 0.9% 1000ML 1,000 ML IV SCH (08:25)
[2017-01-22] MEDS: FLUTICASONE/SALMETEROL 250/50 (ADVAIR) 14 PUFF/1 INHALER INH SCH ×2 (08:25→20:02)
[2017-01-22] MEDS ORDERED: HEPARIN SOD 5000 UNIT/0.5 ML CARP SQ SCH (09:00)
[2017-01-22] MEDS ORDERED: METOPROLOL SUCC 50MG EXT REL TAB PO SCH (09:00)
[2017-01-22] MEDS: ASPIRIN 81 MG ECTAB PO SCH (09:26)
[2017-01-22] MEDS: ATORVASTATIN 40 MG TAB PO SCH (09:26)
[2017-01-22] MEDS: AMIODARONE 200 MG TAB PO SCH (09:27)
[2017-01-22 10:49] LABS: MEAN CELL VOLUME 91.2 fL (80-100); MEAN CORPUSCULAR HEMOGLOBIN 32.7 pg (25-34); MEAN CORPUSCULAR HGB CONC 35.9 g/dl (32-36); MEAN PLATELET VOLUME 9.2 fL (7.4-10.4); PLATELET COUNT 243 K/uL (130-400); RED BLOOD COUNT 3.18 M/uL (4.2-5.4); WHITE BLOOD COUNT 16.99 K/uL (4.8-10.8)
[2017-01-22 11:26] LABS: BUN/CREATININE RATIO 27.6 (10-20); CALCIUM 6.6 mg/dl (8.5-10.1); CREATININE 1.8 mg/dl (0.60-1.20); MAGNESIUM 2.7 mg/dl (1.8-2.4); POTASSIUM 3.2 mmol/L (3.5-5.1)
--- NOTE | 2017-01-22 15:57 | Progress Note ---
Subjective Date of Service: Jan 22, 2017. Subjective Pt evaluation today including: conversation w/ patient, physical exam, lab review, review of studies, review of inpatient medication list Pain: denies pain PO Intake: poor appetite, has not been eating prior to admission Voiding: no voiding problems patient resting in bed, denies dyspnea she is still having diarrhea, C diff negative no vomiting today, poor appetite reviewed her labs, Cr improving, Na and K improving, Mg actually high now Ca low at 6.6, even low after correction reviewed CT chest read, has right lower lobe pneumonia Problem List Medical Problems: (1) Acute kidney failure Status: Acute (2) CAD (coronary artery disease) Status: Acute (3) COPD exacerbation Status: Acute (4) Dysrhythmia Status: Acute (5) Fever Status: Acute (6) NSTEMI (non-ST elevated myocardial infarction) Status: Acute Review of Systems Constitutional: + weakness, + fatigue Respiratory: + cough, + shortness of breath, + dyspnea on exertion Abdomen: + diarrhea Neurologic: + weakness All Other Systems: Reviewed and Negative Medications Current Inpatient Medications Medications (Trade) Dose Ordered Sig/Eileen Route Start Time Stop Time Status Last Admin Dose Admin Acetaminophen (Tylenol Tab) 650 mg Q4H PRN PO 01/22/17 02:45 02/21/17 02:44 Al Hydrox/Mg Hydrox/Simethicone (Maalox Max Susp) 15 ml Q4H PRN PO 01/22/17 02:45 02/21/17 02:44 Magnesium Hydroxide (Milk Of Magnesia Susp) 30 ml Q12H PRN PO 01/22/17 02:45 02/21/17 02:44 Ondansetron HCl (Zofran Inj) 4 mg Q6H PRN IV 01/22/17 02:45 02/21/17 02:44 Polyethylene (Miralax Powder Packet) 17 gm DAILY PRN PO 01/22/17 02:45 02/21/17 02:44 Amiodarone HCl (Cordarone Tab) 200 mg DAILY PO 01/22/17 09:00 02/21/17 08:59 01/22/17 09:27 200 MG Apixaban (Eliquis Tab) 2.5 mg BID PO 01/22/17 09:00 02/21/17 08:59 Future Hold Aspirin (Ecotrin Tab) 81 mg DAILY PO 01/22/17 09:00 02/21/17 08:59 01/22/17 09:26 81 MG Atorvastatin Calcium (Lipitor Tab) 80 mg DAILY PO 01/22/17 09:00 02/21/17 08:59 01/22/17 09:26 80 MG Salmeterol Xinafoate/ Fluticasone (Advair Diskus 250/50 Inh) 1 puff BID INH 01/22/17 09:00 02/21/17 08:59 01/22/17 08:25 1 PUFF Nitroglycerin (Nitrostat Tab) 0.4 mg PRN UT 01/22/17 02:45 02/21/17 02:44 Tramadol HCl (Ultram Tab) 50 mg Q6 PRN PO 01/22/17 02:45 02/21/17 02:44 Albuterol/ Ipratropium (Duoneb) 3 ml Q6R INH 01/22/17 03:00 02/21/17 02:59 01/22/17 07:30 3 ML Albuterol Sulfate (Ventolin 0.083% 2.5MG/3ML Neb) 2.5 mg Q4H PRN INH 01/22/17 02:45 02/21/17 02:44 Azithromycin 500 mg/Dextrose 255 ml @ 125 mls/hr Q24H IV 01/22/17 05:00 01/29/17 04:59 01/22/17 04:38 125 MLS/HR Ampicillin Sodium/ Sulbactam Sodium (Consult) 1 ea UD PRN N/A 01/22/17 04:30 02/21/17 04:29 Potassium Chloride 40 meq/ Sodium Chloride 1,020 ml @ 100 mls/hr [id number] IV 01/22/17 08:00 02/21/17 07:59 01/22/17 08:25 100 MLS/HR Megestrol Acetate (Megace Susp) 400 mg QAM PO 01/23/17 09:00 02/22/17 08:59 Ampicillin Sodium/ Sulbactam Sodium 1500 mg/Sodium Chloride 104 ml @ 200 mls/hr Q12@0600,1800 IV 01/22/17 18:00 01/29/17 17:59 Objective Vital Signs Date Time Temp Pulse Resp B/P (MAP) Pulse Ox O2 Delivery O2 Flow Rate FiO2 01/22/17 12:00 37.5 83 32 100/31 (54) 93 01/22/17 12:00 93 Room Air 01/22/17 09:15 82 28 101/43 (62) 92 01/22/17 09:00 80 29 96 01/22/17 08:46 80 31 92/30 (50) 01/22/17 08:22 81 25 86/36 (53) 90 01/22/17 08:01 81 26 83/39 (54) 88 01/22/17 08:00 96 Room Air 01/22/17 08:00 37.4 81 30 87 01/22/17 07:30 78 28 78 Nasal Cannula 2.0 01/22/17 07:01 74 29 82/40 (54) 01/22/17 07:00 79 30 81 01/22/17 04:20 36.6 76 20 99/36 93 Nasal Cannula 01/22/17 03:06 76 25 93 2.0 01/22/17 03:01 94/34 01/22/17 02:51 78 19 93 01/22/17 02:46 101/41 01/22/17 02:36 74 28 98 01/22/17 02:31 95/37 01/22/17 02:21 75 17 92 01/22/17 02:16 88/43 01/22/17 02:06 78 26 95 01/22/17 02:01 93/32 01/22/17 01:51 78 19 92 01/22/17 01:46 82/41 01/22/17 01:36 83 25 96 01/22/17 01:31 85/36 01/22/17 01:25 86/36 01/22/17 01:06 78 25 95 01/22/17 01:01 95/48 01/22/17 00:55 81 24 96 01/22/17 00:47 110/34 01/22/17 00:40 86 32 98 01/22/17 00:31 112/60 01/22/17 00:25 85 24 96 01/22/17 00:17 114/54 01/22/17 00:10 83 29 95 01/22/17 00:01 92/43 01/21/17 23:55 82 29 93 01/21/17 23:40 85 24 94 01/21/17 23:31 93/45 01/21/17 23:25 85 22 93 01/21/17 23:22 85 27 93 01/21/17 23:20 93/48 01/21/17 23:12 87 29 83/40 01/21/17 22:57 89 27 92 01/21/17 22:42 92 28 93 01/21/17 22:41 113/48 01/21/17 22:40 91 01/21/17 22:27 91 25 92 01/21/17 22:25 93 Nasal Cannula 2.0 01/21/17 22:23 133/45 01/21/17 22:20 37.0 90 27 133/45 88 Room Air Physical Exam General Appearance: no apparent distress, + cachetic Eyes: normal inspection, EOMI, sclerae normal Neck: supple, no adenopathy, no JVD, trachea midline Respiratory/Chest: chest non-tender, no respiratory distress, no accessory muscle use, + decreased breath sounds, + crackles (right base) Cardiovascular: regular rate, rhythm, no edema, no gallop, no JVD, no murmur Abdomen: normal bowel sounds, non tender, soft, no organomegaly Extremities: normal range of motion, non-tender, normal inspection, no pedal edema, no calf tenderness Neurologic/Psychiatric: 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, alert, normal mood/affect, oriented x 3, + motor weakness Laboratory Results Last 24 Hours Test 01/21/17 21:51 01/22/17 00:00 01/22/17 00:43 01/22/17 05:38 White Blood Count 26.77 K/uL Red Blood Count 4.00 M/uL Hemoglobin 12.5 g/dL Hematocrit 36.9 % Mean Corpuscular Volume 92.3 fL Mean Corpuscular Hemoglobin 31.3 pg Mean Corpuscular Hemoglobin Concent 33.9 g/dl Platelet Count 358 K/uL Mean Platelet Volume 10.0 fL Neutrophils (%) (Auto) 89.4 % Lymphocytes (%) (Auto) 3.5 % Monocytes (%) (Auto) 6.5 % Eosinophils (%) (Auto) 0.0 % Basophils (%) (Auto) 0.0 % Neutrophils # (Auto) 23.92 K/uL Lymphocytes # (Auto) 0.95 K/uL Monocytes # (Auto) 1.73 K/uL Eosinophils # (Auto) 0.00 K/uL Basophils # (Auto) 0.01 K/uL RDW Standard Deviation 45.1 fL RDW Coefficient of Variation 13.3 % Immature Granulocyte % (Auto) 0.6 % Immature Granulocyte # (Auto) 0.16 K/uL Toxic Vacuolation 1+ Dohle Bodies OCCASIONAL Ovalocytes 1+ Echinocytes 2+ Sodium Level 129 mmol/L 133 mmol/L Potassium Level 3.2 mmol/L 2.6 mmol/L Chloride Level 92 mmol/L 101 mmol/L Carbon Dioxide Level 19 mmol/L 20 mmol/L Anion Gap 18.0 mmol/L 12.0 mmol/L Blood Urea Nitrogen 58 mg/dl 53 mg/dl Creatinine 3.30 mg/dl 2.20 mg/dl Est Creatinine Clear Calc Drug Dose 9.3 ml/min 14.5 ml/min Estimated GFR () 15.4 25.1 Estimated GFR (Non- 13.3 21.7 BUN/Creatinine Ratio 17.5 24.2 Random Glucose 130 mg/dl 133 mg/dl Calcium Level 8.2 mg/dl 6.4 mg/dl Magnesium Level 1.8 mg/dl 1.6 mg/dl Total Bilirubin 0.9 mg/dl Direct Bilirubin 0.4 mg/dl Aspartate Amino Transf (AST/SGOT) 174 U/L Alanine Aminotransferase (ALT/SGPT) 153 U/L Alkaline Phosphatase 122 U/L Total Creatine Kinase 179 U/L Troponin I 0.045 ng/ml Total Protein 6.8 gm/dl Albumin 2.6 gm/dl Bedside Lactic Acid Venous 1.87 mmol/L Urine Color DK YELLOW Urine Appearance CLOUDY Urine pH 5.0 Urine Specific [place] 1.020 Urine Protein 2+ Urine Glucose (UA) NEG Urine Ketones TRACE Urine Occult Blood 1+ Urine Nitrite NEG Urine Bilirubin NEG Urine Urobilinogen NEG Urine Leukocyte Esterase NEG Urine WBC (Auto) 5-10 /hpf Urine RBC (Auto) 5-10 /hpf Urine Hyaline Casts (Auto) >30 /lpf Urine Epithelial Cells (Auto) >30 /lpf Urine Bacteria (Auto) 1+ Urine Renal Epithelial Cells /lpf Urine Pathogenic Casts 5-10 GRANULAR CASTS /lpf Phosphorus Level 3.2 mg/dl Test 01/22/17 10:28 White Blood Count 16.99 K/uL Red Blood Count 3.18 M/uL Hemoglobin 10.4 g/dL Hematocrit 29.0 % Mean Corpuscular Volume 91.2 fL Mean Corpuscular Hemoglobin 32.7 pg Mean Corpuscular Hemoglobin Concent 35.9 g/dl RDW Standard Deviation 44.7 fL RDW Coefficient of Variation 13.2 % Platelet Count 243 K/uL Mean Platelet Volume 9.2 fL Sodium Level 132 mmol/L Potassium Level 3.2 mmol/L Chloride Level 103 mmol/L Carbon Dioxide Level 19 mmol/L Anion Gap 10.0 mmol/L Blood Urea Nitrogen 50 mg/dl Creatinine 1.80 mg/dl Est Creatinine Clear Calc Drug Dose 17.7 ml/min Estimated GFR () 32.0 Estimated GFR (Non- 27.6 BUN/Creatinine Ratio 27.6 Random Glucose 141 mg/dl Calcium Level 6.6 mg/dl Magnesium Level 2.7 mg/dl Assessment and Plan 71 y/o F Paroxysmal Aflutter, chronic systolic CHF, advanced COPD, CAD, dementia. Pt presents with 4-5 days of diarrhea and poor PO intake. She has become progressively weak and "shaky" per family. The pt states that she has an oral ulcer which makes eating painful in addition to a sore throat. She has occasional lower abdominal pain which resolves following a bowel movement. She denied a productive cough, SOB above baseline, CP or fevers. The pt was hypotensive on arrival to the ER and has responded to a fluid bolus. Initial labs are notable for ARF, hyponatremia and marked leukocytosis. A CT abdomen did not reveal any acute findings. A CXR shows a large consolidation in her R lung which was not present on imaging 06/30. 1) Diarrhea, weakness, hypotension - BP improving with fluids, no signs of shock still with diarrhea, C diff negative continue supportive care may need to consider GI consult if diarrhea continues 2) Right lower lobe pneumonia: continue Zosyn and Zithromax mild cough, not very productive, afebrile, + leukocytosis 3) ARF - appears to be prerenal azotemia since Cr and BUN improving with fluids K coming up to 3.2, continue replacement Mg is high at 2.7 repeat labs tomorrow adequate UO 4) COPD - provided with Duonebs, Albuterol, 02 protocol - steroids are not clinically indicated at present, still no wheezing 5) CHF - careful monitoring of volume status will be necessary to avoid overload as her EF is 30-35% - Her Bblocker is held due to hypotension and should be restarted when possible. Lisinopril is held. continue to hold these meds, BP low normal 6) A flutter - sinus rhythm on admission - Apixaban held due to ARF - restart when improved - restart Metoprolol when BP stabilizes. 7) Cachexia - pt's weight needs to be addressed started on Megace and supplements
[2017-01-22] MEDS: BOOST BREEZE NUTRITION DRINK 1 BOX PO SCH (16:57)
[2017-01-22] MEDS: AMPICILLIN/SULBACTAM SOD INJ 1,500 MG in SODIUM CHLORIDE 0.9% 100ML 100 ML IV SCH (18:14)
[2017-01-23] VITALS (12 sets, daily range): BP systolic 85–114; BP diastolic 45–63; PULSE 72–107; TEMP 36.7–37.2; O2SAT 88–96
[2017-01-23] MEDS: POTASSIUM CHLORIDE INJ 40 MEQ in SODIUM CHLORIDE 0.9% 1000ML 1,000 ML IV SCH ×2 (00:05→05:08)
[2017-01-23] MEDS: ALBUT/IPRATROP 3MG/0.5MG NEB 3 ML VIAL INH SCH ×2 (01:34→07:00)
[2017-01-23] MEDS: ALBUTEROL 0.083% NEBU SOLN 3 ML VIAL INH PRN ×2 (04:06→23:50)
[2017-01-23] MEDS ORDERED: NURSING DECISION MEDICATION ORDER SCH (05:00)
[2017-01-23] MEDS ORDERED: COUGH DROP (SUGAR FREE) LOZ 24 LOZ/1 BOX PO PRN (05:00)
[2017-01-23] MEDS: AZITHROMYCIN IV 500 MG in DEXTROSE 5% 250ML 250 ML IV SCH (05:07)
[2017-01-23 06:46] LABS: HEMATOCRIT 29.9 % (37-47); MEAN CELL VOLUME 90.6 fL (80-100); MEAN CORPUSCULAR HEMOGLOBIN 30.6 pg (25-34); MEAN CORPUSCULAR HGB CONC 33.8 g/dl (32-36); MEAN PLATELET VOLUME 8.9 fL (7.4-10.4); PLATELET COUNT 306 K/uL (130-400)
[2017-01-23] MEDS: AMPICILLIN/SULBACTAM SOD INJ 1,500 MG in SODIUM CHLORIDE 0.9% 100ML 100 ML IV SCH ×2 (07:15→17:54)
[2017-01-23 07:30] LABS: BUN/CREATININE RATIO 33.5 (10-20); CALCIUM 6.9 mg/dl (8.5-10.1); MAGNESIUM 2.1 mg/dl (1.8-2.4); POTASSIUM 4.2 mmol/L (3.5-5.1)
[2017-01-23 07:38] LABS: CREATININE 1.2 mg/dl (0.60-1.20)
[2017-01-23 07:39] LABS: PHOSPHORUS 2.1 mg/dl (2.5-4.9)
[2017-01-23 07:52] LABS: BASO ABS # 0.01 K/uL (0-0.2); COMPLETE YES; ECHINOCYTES 3+; IG% 0.4 %; LYMPH % 1.4 %; LYMPH ABS # 0.34 K/uL (1.2-3.4); MONO % 5.6 %; NEUT % 92.6 %
[2017-01-23] MEDS: ATORVASTATIN 40 MG TAB PO SCH (08:21)
[2017-01-23] MEDS: ASPIRIN 81 MG ECTAB PO SCH (08:21)
[2017-01-23] MEDS: FLUTICASONE/SALMETEROL 250/50 (ADVAIR) 14 PUFF/1 INHALER INH SCH ×2 (08:22→20:52)
[2017-01-23] MEDS: MEGESTROL ACETATE 400 MG/10 ML UDP PO SCH (08:22)
[2017-01-23] MEDS: BOOST BREEZE NUTRITION DRINK 1 BOX PO SCH ×3 (08:27→17:49)
[2017-01-23] MEDS: AMIODARONE 200 MG TAB PO SCH (08:31)
--- NOTE | 2017-01-23 09:47 | Clinical Documentation Query ---
QUERY 1 OF [address] ROCHE, In your clinical opinion is this patient being managed for: ( x ) Sepsis, POA ( ) Other explanation of clinical findings (Please Explain) ( ) Unable to determine (Please Define) ( ) Need to Discuss ( ) Not Agree The medical record reflects the following clinical findings, treatment, and risk factors. Clinical Indicators:71 yo female presenting with diarrhea and weakness x 4 days. Reports feeling cold. WBC 26.77, Cr 3.30. Initial BP normotensive but subsequently became hypotensive, requiring IV fluid resuscitation. Treatment: 2L NSS bolus, IV zosyn, IV azithromax, O2 support, tele, blood cx and stool for C diff, Risk Factors: age, pneumonia, advanced COPD QUERY 2 OF 2 In your clinical opinion is this patient being managed for: (x ) Acute hypoxic respiratory failure ( ) Other explanation of clinical findings (Please Explain) ( ) Unable to determine (Please Define) ( ) Need to Discuss ( ) Not Agree The medical record reflects the following clinical findings, treatment, and risk factors. Clinical Indicators:71 yo female presenting with diarrhea and weakness. Tachypneic (resp rate 27) with O2 sat of 88% on RA at time of ER presentation Treatment:O2 support, IV zosyn, IV azithromax, tele, nebs Risk Factors: age, advanced COPD, pneumonia Please clarify and document your clinical opinion in the progress notes and discharge summary. Terms such as "probable", "suspected", "likely", "questionable", "possible", or "still to be ruled out" are acceptable. IF IN AGREEMENT, YOU MUST DOCUMENT ABOVE DIAGNOSTIC STATEMENT IN DAILY PROGRESS NOTES AND DISCHARGE SUMMARY. This document is not part of the patient's record. Thank You, Albina Salinas RN [phone]
[2017-01-23] MEDS: SODIUM BICARBONATE 8.4% INJ 75 MEQ in SODIUM CHLORIDE 0.45% 1000ML 1,000 ML IV SCH (11:17)
--- NOTE | 2017-01-23 13:30 | Progress Note ---
Subjective Date of Service: Jan 23, 2017. Subjective Pt evaluation today including: conversation w/ patient, conversation w/ family (daughter in law at the bedside), physical exam, lab review, review of studies, review of inpatient medication list Pain: no pain PO Intake: very poor, still not eating Voiding: no voiding problems patient with a loose stool this AM, no other BM still with cough, not very productive, feels more short of breath than normal reviewed labs, Cr improving, still with leukocytosis, going up long talk with patient's daughter in law she is concerned about patient going home, home is dirty, she lives with her youngest son, concerns over how well she is cared for she reports that the patient drinks several cans of soda a day, cup of coffee in the morning, no calcium intake, very little food her diet has definitely gotten worse over the past month according to daughter in law, her weight was 97 pounds a month ago, 93 pounds here discussed that we would get therapy evaluations, likely too weak to go home at this point, rehab could be a good bridge to placement if needed Problem List Medical Problems: (1) Acute kidney failure Status: Acute (2) CAD (coronary artery disease) Status: Acute (3) COPD exacerbation Status: Acute (4) Dysrhythmia Status: Acute (5) Fever Status: Acute (6) NSTEMI (non-ST elevated myocardial infarction) Status: Acute Review of Systems Constitutional: + weakness, + fatigue Respiratory: + cough, + shortness of breath Abdomen: + diarrhea All Other Systems: Reviewed and Negative Medications Current Inpatient Medications Medications (Trade) Dose Ordered Sig/Eileen Route Start Time Stop Time Status Last Admin Dose Admin Acetaminophen (Tylenol Tab) 650 mg Q4H PRN PO 01/22/17 02:45 02/21/17 02:44 Al Hydrox/Mg Hydrox/Simethicone (Maalox Max Susp) 15 ml Q4H PRN PO 01/22/17 02:45 02/21/17 02:44 Magnesium Hydroxide (Milk Of Magnesia Susp) 30 ml Q12H PRN PO 01/22/17 02:45 02/21/17 02:44 Ondansetron HCl (Zofran Inj) 4 mg Q6H PRN IV 01/22/17 02:45 02/21/17 02:44 Polyethylene (Miralax Powder Packet) 17 gm DAILY PRN PO 01/22/17 02:45 02/21/17 02:44 Amiodarone HCl (Cordarone Tab) 200 mg DAILY PO 01/22/17 09:00 02/21/17 08:59 01/22/17 09:27 200 MG Apixaban (Eliquis Tab) 2.5 mg BID PO 01/22/17 09:00 02/21/17 08:59 Future Hold Aspirin (Ecotrin Tab) 81 mg DAILY PO 01/22/17 09:00 02/21/17 08:59 01/23/17 08:21 81 MG Atorvastatin Calcium (Lipitor Tab) 80 mg DAILY PO 01/22/17 09:00 02/21/17 08:59 01/23/17 08:21 80 MG Salmeterol Xinafoate/ Fluticasone (Advair Diskus 250/50 Inh) 1 puff BID INH 01/22/17 09:00 02/21/17 08:59 01/23/17 08:22 1 PUFF Nitroglycerin (Nitrostat Tab) 0.4 mg PRN UT 01/22/17 02:45 02/21/17 02:44 Tramadol HCl (Ultram Tab) 50 mg Q6 PRN PO 01/22/17 02:45 02/21/17 02:44 Albuterol Sulfate (Ventolin 0.083% 2.5MG/3ML Neb) 2.5 mg Q4H PRN INH 01/22/17 02:45 02/21/17 02:44 01/23/17 04:06 2.5 MG Azithromycin 500 mg/Dextrose 255 ml @ 125 mls/hr Q24H IV 01/22/17 05:00 01/29/17 04:59 01/23/17 05:07 125 MLS/HR Ampicillin Sodium/ Sulbactam Sodium (Consult) 1 ea UD PRN N/A 01/22/17 04:30 02/21/17 04:29 Megestrol Acetate (Megace Susp) 400 mg QAM PO 01/23/17 09:00 02/22/17 08:59 01/23/17 08:22 400 MG Ampicillin Sodium/ Sulbactam Sodium 1500 mg/Sodium Chloride 104 ml @ 200 mls/hr Q12@0600,1800 IV 01/22/17 18:00 01/29/17 17:59 01/23/17 07:15 200 MLS/HR Enteral Nutritional Formula (Boost Breeze Nutritional Drink) 1 box TIDM PO 01/22/17 16:45 02/21/17 16:44 01/23/17 11:17 1 BOX Menthol (Nice Marce) 1 marce PRN PRN PO 01/23/17 05:00 02/22/17 04:59 Sodium Bicarbonate 75 meq/Sodium Chloride 1,075 ml @ 75 mls/hr [id number] IV 01/23/17 10:00 02/22/17 09:59 01/23/17 11:17 75 MLS/HR Sodium Bicarbonate (Sodium Bicarbonate Tab) 650 mg BID PO 01/23/17 21:00 02/22/17 20:59 Albuterol/ Ipratropium (Combivent Respimat Inh) 1 puffs QID INH 01/23/17 13:00 02/22/17 12:59 Objective Vital Signs Date Time Temp Pulse Resp B/P (MAP) Pulse Ox O2 Delivery O2 Flow Rate FiO2 01/23/17 12:00 Nasal Cannula 3.0 01/23/17 11:34 36.8 97 18 98/46 (63) 94 01/23/17 08:30 Nasal Cannula 3.0 01/23/17 08:12 36.9 72 18 95/63 (74) 96 01/23/17 07:00 104 22 88 Nasal Cannula 3.0 01/23/17 04:15 Nasal Cannula 3.0 01/23/17 04:06 103 22 92 Nasal Cannula 3.0 01/23/17 04:00 37.0 97 24 108/45 (66) 90 Nasal Cannula 2.0 01/23/17 00:05 92 Nasal Cannula 3.0 01/23/17 00:00 37.2 93 26 85/45 (58) 91 Nasal Cannula 01/22/17 20:10 91 Nasal Cannula 3.0 01/22/17 19:28 36.9 82 20 87/52 (64) 91 Nasal Cannula 3.0 01/22/17 19:02 82 20 91 Nasal Cannula 3.0 01/22/17 16:30 Nasal Cannula 3.0 01/22/17 16:06 37.1 87 18 91/42 (58) 92 Nasal Cannula 3.0 01/22/17 15:30 123/99 (107) Physical Exam General Appearance: no apparent distress, + cachetic Eyes: normal inspection, EOMI, sclerae normal ENT: normal ENT inspection, hearing grossly normal, pharynx normal Neck: supple, no adenopathy, no JVD, trachea midline Respiratory/Chest: chest non-tender, no respiratory distress, no accessory muscle use, + decreased breath sounds Cardiovascular: no edema, no gallop, no JVD, no murmur, + tachycardia Abdomen: normal bowel sounds, non tender, soft, no organomegaly Extremities: normal range of motion, non-tender, normal inspection, no pedal edema, no calf tenderness, pelvis stable 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, alert, oriented x 3, + motor weakness, + pertinent finding (more aggitated today) Skin: normal color, warm/dry, no rash Lymphatic: no adenopathy Laboratory Results Last 24 Hours Test 01/23/17 06:36 White Blood Count 24.50 K/uL Red Blood Count 3.30 M/uL Hemoglobin 10.1 g/dL Hematocrit 29.9 % Mean Corpuscular Volume 90.6 fL Mean Corpuscular Hemoglobin 30.6 pg Mean Corpuscular Hemoglobin Concent 33.8 g/dl Platelet Count 306 K/uL Mean Platelet Volume 8.9 fL Neutrophils (%) (Auto) 92.6 % Lymphocytes (%) (Auto) 1.4 % Monocytes (%) (Auto) 5.6 % Eosinophils (%) (Auto) 0.0 % Basophils (%) (Auto) 0.0 % Neutrophils # (Auto) 22.66 K/uL Lymphocytes # (Auto) 0.34 K/uL Monocytes # (Auto) 1.38 K/uL Eosinophils # (Auto) 0.01 K/uL Basophils # (Auto) 0.01 K/uL RDW Standard Deviation 44.9 fL RDW Coefficient of Variation 13.5 % Immature Granulocyte % (Auto) 0.4 % Immature Granulocyte # (Auto) 0.10 K/uL Echinocytes 3+ Sodium Level 134 mmol/L Potassium Level 4.2 mmol/L Chloride Level 108 mmol/L Carbon Dioxide Level 16 mmol/L Anion Gap 10.0 mmol/L Blood Urea Nitrogen 40 mg/dl Creatinine 1.20 mg/dl Est Creatinine Clear Calc Drug Dose 47.1 ml/min Estimated GFR () 52.3 Estimated GFR (Non- 45.1 BUN/Creatinine Ratio 33.5 Random Glucose 158 mg/dl Calcium Level 6.9 mg/dl Phosphorus Level 2.1 mg/dl Magnesium Level 2.1 mg/dl Total Bilirubin 0.6 mg/dl Direct Bilirubin 0.4 mg/dl Aspartate Amino Transf (AST/SGOT) 211 U/L Alanine Aminotransferase (ALT/SGPT) 131 U/L Alkaline Phosphatase 94 U/L Total Protein 5.2 gm/dl Albumin 1.9 gm/dl Assessment and Plan 71 y/o F Paroxysmal Aflutter, chronic systolic CHF, advanced COPD, CAD, dementia. Pt presents with 4-5 days of diarrhea and poor PO intake. She has become progressively weak and "shaky" per family. The pt states that she has an oral ulcer which makes eating painful in addition to a sore throat. She has occasional lower abdominal pain which resolves following a bowel movement. She denied a productive cough, SOB above baseline, CP or fevers. The pt was hypotensive on arrival to the ER and has responded to a fluid bolus. Initial labs are notable for ARF, hyponatremia and marked leukocytosis. A CT abdomen did not reveal any acute findings. A CXR shows a large consolidation in her R lung which was not present on imaging 06/30. - Diarrhea, weakness, hypotension - BP improved with fluids, no signs of shock C diff negative, one loose stool today continue supportive care with IV fluids - Sepsis POA due to Right lower lobe pneumonia: continue Zosyn and Zithromax mild cough, not very productive, afebrile, + leukocytosis that is increasing - Non-gapped metabolic acidosis: due to diarrhea, add NaHCO3 to the IV fluids repeat labs tomorrow - Acute hypoxic respiratory failure: due to pneumonia on top of COPD, try to titrate off oxygen with treatment of PNA - EDUARDO - appears to be prerenal azotemia since Cr and BUN improving with fluids K coming up to 4.2, stop replacement Mg is normal at 2.1 phosphorus improving, up to 2.1 - Hypocalcemia: certainly Vitamin D deficiency is likely, will check level tomorrow will need aggressive replacement start calcium and vitamin D today while awaiting results - COPD - no wheezing, continue Combivent - chronic systolic heart failure - careful monitoring of volume status will be necessary to avoid overload as her EF is 30-35% continue to hold BB with low normal BP - A flutter - sinus rhythm on admission - Apixaban held due to ARF - plan to resume tomorrow - Cachexia - pt's weight needs to be addressed started on Megace and supplements, refusing to eat social issues: patient lives with youngest son, per other family members, the house is filthy, concerned that she is not getting proper care anticipate needing rehab, possible fdc placement patient is resistant to this idea
[2017-01-23] MEDS: IPRATROPIUM BROMIDE/ALBUTEROL respimat INH INH SCH ×3 (13:51→20:52)
[2017-01-23] MEDS: SODIUM BICARBONATE 650 MG TAB PO SCH (20:57)
[2017-01-23] MEDS: CALCIUM 600MG + VIT D 400 IU TAB PO SCH (20:57)
[2017-01-24] VITALS (17 sets, daily range): BP systolic 89–138; BP diastolic 48–88; PULSE 87–174; TEMP 36.5–37.3; O2SAT 83–98
[2017-01-24] MEDS: TRAMADOL HCL 50 MG TAB PO PRN (01:04)
[2017-01-24] MEDS: SODIUM BICARBONATE 8.4% INJ 75 MEQ in SODIUM CHLORIDE 0.45% 1000ML 1,000 ML IV SCH ×2 (01:05→12:13)
[2017-01-24] MEDS: AZITHROMYCIN IV 500 MG in DEXTROSE 5% 250ML 250 ML IV SCH (04:19)
[2017-01-24] MEDS: AMPICILLIN/SULBACTAM SOD INJ 1,500 MG in SODIUM CHLORIDE 0.9% 100ML 100 ML IV SCH ×3 (06:31→21:11)
[2017-01-24] MEDS: BOOST BREEZE NUTRITION DRINK 1 BOX PO SCH ×3 (07:30→19:03)
[2017-01-24 07:42] LABS: BUN/CREATININE RATIO 37.6 (10-20); CALCIUM 7.1 mg/dl (8.5-10.1); CREATININE 0.94 mg/dl (0.60-1.20); MAGNESIUM 1.8 mg/dl (1.8-2.4); POTASSIUM 3.9 mmol/L (3.5-5.1)
[2017-01-24 07:45] LABS: PHOSPHORUS 1.6 mg/dl (2.5-4.9)
[2017-01-24 07:48] LABS: BASO ABS # 0.01 K/uL (0-0.2); COMPLETE YES; EOS % 0.1 %; HEMATOCRIT 30.8 % (37-47); IG% 0.5 %; LYMPH % 2.5 %; LYMPH ABS # 0.54 K/uL (1.2-3.4); MEAN CELL VOLUME 89.5 fL (80-100); MEAN CORPUSCULAR HEMOGLOBIN 30.8 pg (25-34); MEAN CORPUSCULAR HGB CONC 34.4 g/dl (32-36); MEAN PLATELET VOLUME 9.4 fL (7.4-10.4); MONO % 5.3 %; NEUT % 91.6 %; PLATELET COUNT 280 K/uL (130-400); RED BLOOD COUNT 3.44 M/uL (4.2-5.4); WHITE BLOOD COUNT 21.26 K/uL (4.8-10.8)
[2017-01-24] MEDS: FLUTICASONE/SALMETEROL 250/50 (ADVAIR) 14 PUFF/1 INHALER INH SCH ×2 (08:20→21:11)
[2017-01-24] MEDS: IPRATROPIUM BROMIDE/ALBUTEROL respimat INH INH SCH ×4 (08:20→21:11)
[2017-01-24] MEDS: CALCIUM 600MG + VIT D 400 IU TAB PO SCH ×2 (08:20→21:13)
[2017-01-24] MEDS: AMIODARONE 200 MG TAB PO SCH (08:20)
[2017-01-24] MEDS: ASPIRIN 81 MG ECTAB PO SCH (08:21)
[2017-01-24] MEDS: SODIUM BICARBONATE 650 MG TAB PO SCH ×2 (08:21→21:13)
[2017-01-24] MEDS: ATORVASTATIN 40 MG TAB PO SCH (08:21)
[2017-01-24] MEDS: MEGESTROL ACETATE 400 MG/10 ML UDP PO SCH (08:21)
[2017-01-24] MEDS ORDERED: SODIUM PHOSPHATE 3 MMOL/1 ML INFUSION IV STA (09:56)
[2017-01-24] MEDS ORDERED: LEVALBUTEROL/IPRATROPIUM NEB INH PRN (10:15)
[2017-01-24] MEDS ORDERED: SODIUM PHOSPHATE INJ 21 MMOL in SODIUM CHLORIDE 0.9% 500ML 500 ML IV SCH (10:30)
[2017-01-24] MEDS: NYSTATIN SUSP 500,000 U/5 ML UDC PO SCH ×3 (12:12→21:12)
--- NOTE | 2017-01-24 13:44 | Progress Note ---
Subjective Date of Service: Jan 24, 2017. Subjective Pt evaluation today including: conversation w/ patient, physical exam, lab review, review of inpatient medication list Pain: mouth pain PO Intake: poor Voiding: no voiding problems patient still not eating much, mouth examined, it is dry, appears sore and erythematous, no white plaque seen breathing is better today, still with cough, requesting that nebulizers be added back to regimen still with diarrhea, only once a day though, no vomiting asking when she can go home, discussed that we need therapy to evaluate and I anticipate that she will need to go to rehab Problem List Medical Problems: (1) Acute kidney failure Status: Acute (2) CAD (coronary artery disease) Status: Acute (3) COPD exacerbation Status: Acute (4) Dysrhythmia Status: Acute (5) Fever Status: Acute (6) NSTEMI (non-ST elevated myocardial infarction) Status: Acute Review of Systems Constitutional: + weakness, + fatigue ENT: + problem reported (sore mouth) Respiratory: + cough, + sputum, + shortness of breath, + dyspnea on exertion Abdomen: + diarrhea, + problem reported (poor appetite) All Other Systems: Reviewed and Negative Medications Current Inpatient Medications Medications (Trade) Dose Ordered Sig/Eileen Route Start Time Stop Time Status Last Admin Dose Admin Acetaminophen (Tylenol Tab) 650 mg Q4H PRN PO 01/22/17 02:45 02/21/17 02:44 Al Hydrox/Mg Hydrox/Simethicone (Maalox Max Susp) 15 ml Q4H PRN PO 01/22/17 02:45 02/21/17 02:44 Magnesium Hydroxide (Milk Of Magnesia Susp) 30 ml Q12H PRN PO 01/22/17 02:45 02/21/17 02:44 Ondansetron HCl (Zofran Inj) 4 mg Q6H PRN IV 01/22/17 02:45 02/21/17 02:44 01/23/17 20:53 4 MG Polyethylene (Miralax Powder Packet) 17 gm DAILY PRN PO 01/22/17 02:45 02/21/17 02:44 Amiodarone HCl (Cordarone Tab) 200 mg DAILY PO 01/22/17 09:00 02/21/17 08:59 01/24/17 08:20 200 MG Apixaban (Eliquis Tab) 2.5 mg BID PO 01/22/17 09:00 02/21/17 08:59 Future hold Aspirin (Ecotrin Tab) 81 mg DAILY PO 01/22/17 09:00 02/21/17 08:59 01/24/17 08:21 81 MG Atorvastatin Calcium (Lipitor Tab) 80 mg DAILY PO 01/22/17 09:00 02/21/17 08:59 01/24/17 08:21 80 MG Salmeterol Xinafoate/ Fluticasone (Advair Diskus 250/50 Inh) 1 puff BID INH 01/22/17 09:00 02/21/17 08:59 01/24/17 08:20 1 PUFF Nitroglycerin (Nitrostat Tab) 0.4 mg PRN UT 01/22/17 02:45 02/21/17 02:44 Tramadol HCl (Ultram Tab) 50 mg Q6 PRN PO 01/22/17 02:45 02/21/17 02:44 01/24/17 01:04 50 MG Azithromycin 500 mg/Dextrose 255 ml @ 125 mls/hr Q24H IV 01/22/17 05:00 01/29/17 04:59 01/24/17 04:19 125 MLS/HR Ampicillin Sodium/ Sulbactam Sodium (Consult) 1 ea UD PRN N/A 01/22/17 04:30 02/21/17 04:29 Megestrol Acetate (Megace Susp) 400 mg QAM PO 01/23/17 09:00 02/22/17 08:59 01/24/17 08:21 400 MG Ampicillin Sodium/ Sulbactam Sodium 1500 mg/Sodium Chloride 104 ml @ 200 mls/hr Q12@0600,1800 IV 01/22/17 18:00 01/24/17 18:01 01/24/17 06:31 200 MLS/HR Enteral Nutritional Formula (Boost Breeze Nutritional Drink) 1 box TIDM PO 01/22/17 16:45 02/21/17 16:44 01/24/17 07:30 1 BOX Menthol (Nice Marce) 1 marce PRN PRN PO 01/23/17 05:00 02/22/17 04:59 Sodium Bicarbonate (Sodium Bicarbonate Tab) 650 mg BID PO 01/23/17 21:00 02/22/17 20:59 01/24/17 08:21 650 MG Albuterol/ Ipratropium (Combivent Respimat Inh) 1 puffs QID INH 01/23/17 13:00 02/22/17 12:59 01/24/17 12:12 1 PUFFS Calcium/Vitamin D (Caltrate Plus Tab) 1 tab BID PO 01/23/17 21:00 02/22/17 20:59 01/24/17 08:20 1 TAB Sodium Phosphate 21 mmol/Sodium Chloride 507 ml @ 145 mls/hr TODAY@1030 IV 01/24/17 10:30 01/24/17 14:00 01/24/17 10:39 145 MLS/HR Nystatin (Mycostatin Susp) 5 ml QID PO 01/24/17 13:00 02/03/17 12:59 01/24/17 12:12 5 ML Ipratropium [place] (Atrovent 0.02% 0.5MG/2.5ML Neb) 0.5 mg Q6R PRN INH 01/24/17 11:30 02/23/17 11:29 Levalbuterol (Xopenex 1.25MG/ 0.5ML Neb) 1.25 mg Q6R PRN INH 01/24/17 11:30 02/23/17 11:29 Ampicillin Sodium/ Sulbactam Sodium 1500 mg/Sodium Chloride 104 ml @ 200 mls/hr Q6@0200,0800,1400,2000 IV 01/24/17 20:00 01/29/17 19:59 Objective Vital Signs Date Time Temp Pulse Resp B/P (MAP) Pulse Ox O2 Delivery O2 Flow Rate FiO2 01/24/17 12:00 94 Nasal Cannula 3.5 01/24/17 11:45 36.9 98 18 116/63 (80) 98 01/24/17 08:00 94 Nasal Cannula 3.5 01/24/17 07:48 37.0 102 16 124/69 (87) 94 01/24/17 04:20 93 Nasal Cannula 3.5 01/24/17 04:00 36.7 101 22 125/57 (79) 92 Nasal Cannula 3.0 01/24/17 00:15 91 Nasal Cannula 3.5 01/24/17 00:00 36.8 105 30 112/48 (69) 91 Nasal Cannula 3.0 01/23/17 23:51 107 22 91 Nasal Cannula 4.0 01/23/17 20:10 91 Nasal Cannula 3.5 01/23/17 19:46 36.8 97 22 114/53 (73) 91 Nasal Cannula 4.0 01/23/17 16:20 Nasal Cannula 3.0 01/23/17 15:51 36.7 98 22 101/53 (69) 92 Nasal Cannula 4.0 01/23/17 14:35 101 22 94 Nasal Cannula 4.0 Physical Exam General Appearance: no apparent distress, + cachetic Eyes: normal inspection, EOMI, sclerae normal ENT: + pertinent finding (oral mucosa and tongue very dry, erythematous, no obvious ulcers seen, upper dentures) Neck: supple, no adenopathy, no JVD, trachea midline Respiratory/Chest: chest non-tender, no respiratory distress, no accessory muscle use, + decreased breath sounds, + crackles Cardiovascular: no edema, no gallop, no JVD, no murmur, + tachycardia Abdomen: normal bowel sounds, non tender, soft, no organomegaly Extremities: normal range of motion, non-tender, normal inspection, no pedal edema, no calf tenderness 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, alert, oriented x 3, + abnormal gait, + motor weakness, + depressed affect Skin: normal color, warm/dry, no rash Laboratory Results Last 24 Hours Test 01/24/17 06:42 White Blood Count 21.26 K/uL Red Blood Count 3.44 M/uL Hemoglobin 10.6 g/dL Hematocrit 30.8 % Mean Corpuscular Volume 89.5 fL Mean Corpuscular Hemoglobin 30.8 pg Mean Corpuscular Hemoglobin Concent 34.4 g/dl Platelet Count 280 K/uL Mean Platelet Volume 9.4 fL Neutrophils (%) (Auto) 91.6 % Lymphocytes (%) (Auto) 2.5 % Monocytes (%) (Auto) 5.3 % Eosinophils (%) (Auto) 0.1 % Basophils (%) (Auto) 0.0 % Neutrophils # (Auto) 19.46 K/uL Lymphocytes # (Auto) 0.54 K/uL Monocytes # (Auto) 1.13 K/uL Eosinophils # (Auto) 0.02 K/uL Basophils # (Auto) 0.01 K/uL RDW Standard Deviation 46.1 fL RDW Coefficient of Variation 13.9 % Immature Granulocyte % (Auto) 0.5 % Immature Granulocyte # (Auto) 0.10 K/uL Sodium Level 137 mmol/L Potassium Level 3.9 mmol/L Chloride Level 107 mmol/L Carbon Dioxide Level 20 mmol/L Anion Gap 10.0 mmol/L Blood Urea Nitrogen 35 mg/dl Creatinine 0.94 mg/dl Est Creatinine Clear Calc Drug Dose 37.4 ml/min Estimated GFR () 70.2 Estimated GFR (Non- 60.6 BUN/Creatinine Ratio 37.6 Random Glucose 124 mg/dl Calcium Level 7.1 mg/dl Phosphorus Level 1.6 mg/dl Magnesium Level 1.8 mg/dl Total Bilirubin 0.5 mg/dl Direct Bilirubin 0.2 mg/dl Aspartate Amino Transf (AST/SGOT) 199 U/L Alanine Aminotransferase (ALT/SGPT) 128 U/L Alkaline Phosphatase 112 U/L Total Protein 5.4 gm/dl Albumin 1.9 gm/dl 25-Hydroxy Vitamin D Total 36.6 ng/ml Assessment and Plan 71 y/o F Paroxysmal Aflutter, chronic systolic CHF, advanced COPD, CAD, dementia. Pt presents with 4-5 days of diarrhea and poor PO intake. She has become progressively weak and "shaky" per family. The pt states that she has an oral ulcer which makes eating painful in addition to a sore throat. She has occasional lower abdominal pain which resolves following a bowel movement. She denied a productive cough, SOB above baseline, CP or fevers. The pt was hypotensive on arrival to the ER and has responded to a fluid bolus. Initial labs are notable for ARF, hyponatremia and marked leukocytosis. A CT abdomen did not reveal any acute findings. A CXR shows a large consolidation in her R lung which was not present on imaging 06/30. - Diarrhea, weakness, hypotension - BP improved with fluids, no signs of shock C diff negative, continues with periodic loose stools, add Lomotil drinking well, stop IV fluids - Sepsis POA due to Right lower lobe pneumonia: continue Zosyn and Zithromax, treat for 7 days total mild cough, not very productive, afebrile, + leukocytosis that is improving today will likely repeat CT chest in a few days to document improvement, want to rule out malignant process with weight loss, cachexia - Non-gapped metabolic acidosis: due to diarrhea, improved, HCO3 at 20 today stop IV fluids today - Acute hypoxic respiratory failure: due to pneumonia on top of COPD, try to titrate off oxygen with treatment of PNA still requiring 3.5L today - EDUARDO - appears to be prerenal azotemia since Cr and BUN improving with fluids K is normal Mg is normal at 2.1 phosphorus low at 1.6, will give KPhos IV - Hypocalcemia: Vitamin D low normal at 36, will continue Calcium with Vitamin D - COPD - no wheezing, continue Combivent - chronic systolic heart failure - careful monitoring of volume status will be necessary to avoid overload as her EF is 30-35% continue to hold BB with low normal BP fluids stopped today, examines euvolemic - A flutter - sinus rhythm on admission - Apixaban resumed today with normal renal function - Cachexia - pt's weight needs to be addressed started on Megace and supplements, refusing to eat - Mouth pain: erythematous and dry on exam, will add Nystatin and look for improvement social issues: patient lives with youngest son, per other family members, the house is filthy, concerned that she is not getting proper care anticipate needing rehab, 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
[2017-01-24] MEDS: LEVALBUTEROL 1.25MG/0.5ML NEB INH PRN ×2 (14:05→23:29)
[2017-01-24] MEDS: IPRATROPIUM BROMIDE NEB SOLN 0.02% 2.5 ML VIAL INH PRN ×2 (14:05→23:29)
[2017-01-24] MEDS: APIXABAN 2.5 MG TAB PO SCH (21:12)
[2017-01-25] VITALS (17 sets, daily range): BP systolic 99–147; BP diastolic 46–78; PULSE 97–180; TEMP 36.5–37; O2SAT 84–94
[2017-01-25] MEDS ORDERED: AMIODARONE HCL INJ 50 MG/ML 3 ML VIAL IV STA (00:31)
[2017-01-25] MEDS ORDERED: AMIODARONE / D5W 100 ML IV STA ×2 (00:34→03:16)
[2017-01-25] MEDS: AMPICILLIN/SULBACTAM SOD INJ 1,500 MG in SODIUM CHLORIDE 0.9% 100ML 100 ML IV SCH ×4 (02:21→20:50)
[2017-01-25] MEDS ORDERED: NURSING VERBAL MED ORDER ONE ×2 (03:15→06:00)
[2017-01-25 03:56] LABS: BASO ABS # 0.01 K/uL (0-0.2); HEMATOCRIT 33.4 % (37-47); IG% 1.1 %; LYMPH % 3.5 %; LYMPH ABS # 0.76 K/uL (1.2-3.4); MEAN CORPUSCULAR HEMOGLOBIN 29.1 pg (25-34); MEAN PLATELET VOLUME 9.1 fL (7.4-10.4); MONO % 6.4 %; PLATELET COUNT 271 K/uL (130-400); RED BLOOD COUNT 3.71 M/uL (4.2-5.4)
[2017-01-25 03:59] LABS: COMPLETE YES; MEAN CORPUSCULAR HGB CONC 32.3 g/dl (32-36)
[2017-01-25 04:22] LABS: BUN/CREATININE RATIO 39.5 (10-20); CALCIUM 7.3 mg/dl (8.5-10.1); CREATININE 0.92 mg/dl (0.60-1.20); MAGNESIUM 1.8 mg/dl (1.8-2.4); POTASSIUM 3.6 mmol/L (3.5-5.1)
[2017-01-25 04:34] LABS: THYROID STIMULATING HORMONE 0.225 uIu/ml (0.300-4.500)
[2017-01-25] MEDS: AZITHROMYCIN IV 500 MG in DEXTROSE 5% 250ML 250 ML IV SCH (05:04)
[2017-01-25] MEDS ORDERED: MAGNESIUM SULFATE 1GM / D5W 1 GM in PREMIXED IN D5W 100 ML IV STA (06:05)
[2017-01-25] MEDS ORDERED: POTASSIUM CHLORIDE 20 MEQ TABCR PO STA (06:05)
[2017-01-25] MEDS: BOOST BREEZE NUTRITION DRINK 1 BOX PO SCH ×3 (08:29→17:18)
[2017-01-25] MEDS: SODIUM BICARBONATE 650 MG TAB PO SCH ×2 (08:31→20:53)
[2017-01-25] MEDS: IPRATROPIUM BROMIDE/ALBUTEROL respimat INH INH SCH ×4 (08:31→20:50)
[2017-01-25] MEDS: FLUTICASONE/SALMETEROL 250/50 (ADVAIR) 14 PUFF/1 INHALER INH SCH ×2 (08:31→17:17)
[2017-01-25] MEDS: ASPIRIN 81 MG ECTAB PO SCH (08:32)
[2017-01-25] MEDS: APIXABAN 2.5 MG TAB PO SCH ×2 (08:32→20:52)
[2017-01-25] MEDS: AMIODARONE 200 MG TAB PO SCH ×2 (08:32→20:51)
[2017-01-25] MEDS: CALCIUM 600MG + VIT D 400 IU TAB PO SCH ×2 (08:32→20:51)
[2017-01-25] MEDS: NYSTATIN SUSP 500,000 U/5 ML UDC PO SCH ×4 (08:32→20:52)
[2017-01-25] MEDS: ATORVASTATIN 40 MG TAB PO SCH (08:33)
[2017-01-25] MEDS: MEGESTROL ACETATE 400 MG/10 ML UDP PO SCH (08:33)
--- NOTE | 2017-01-25 08:40 | DIAGNOSTIC IMAGING REPORT ---
CHEST ONE VIEW PORTABLE CLINICAL HISTORY: 71 years-old Female presenting with Hypoxia. TECHNIQUE: Portable upright AP view of the chest was obtained. COMPARISON: 01/21/[address] from 01/22/2017. FINDINGS: Atherosclerosis of the aortic arch. Persistent perihilar and right mid and lower lung opacity with greater volume loss in the right lung. Interval development of moderate right pleural effusion. Interval development of significant left basilar predominant opacity possibly with a trace left pleural effusion. Background emphysematous changes. No pneumothorax. Osseous structures normal. Gaseous distention of colon. IMPRESSION: 1. Interval development of moderate right and trace left parapneumonic effusions. 2. Decrease right lung aeration and persistent diffuse right lung consolidation consistent with pneumonia. 3. Interval development of left basilar consolidation, consistent with worsening pneumonia and/or aspiration. Electronically signed by: Inocencio Marcelo M.D. 01/25/2017 8:39 AM Dictated Date/Time: 01/25/2017 8:35 AM
[2017-01-25] MEDS ORDERED: VANCOMYCIN CONSULT ACTIVE PRN (08:45)
[2017-01-25] MEDS ORDERED: VANCOMYCIN INJ 1,100 MG in SODIUM CHLORIDE 0.9% 250ML 250 ML IV ONE (09:00)
--- NOTE | 2017-01-25 10:16 | Pharmacy Progress Note ---
Pharmacy Antibiotic Consult Date of Service: Jan 25, 2017. Pharmacy Dosing Scope Pharmacy is consulted to initiate vancomycin IV dosing therapy, order appropriate labs and adjust drug dose/frequency. Subjective The patient is a 71 year old female admitted on Jan 22, 2017 at 02:42. Objective Height (Feet): 5 Height (Inches): 4.00 Weight (Kilograms): 43.800 Lab Results (24hrs): Test 01/25/17 03:47 White Blood Count 21.90 K/uL (4.8-10.8) Red Blood Count 3.71 M/uL (4.2-5.4) Hemoglobin 10.8 g/dL (12.0-16.0) Hematocrit 33.4 % (37-47) Mean Corpuscular Volume 90.0 fL (80-100) Mean Corpuscular Hemoglobin 29.1 pg (25-34) Mean Corpuscular Hemoglobin Concent 32.3 g/dl (32-36) Platelet Count 271 K/uL (130-400) Mean Platelet Volume 9.1 fL (7.4-10.4) Neutrophils (%) (Auto) 89.0 % Lymphocytes (%) (Auto) 3.5 % Monocytes (%) (Auto) 6.4 % Eosinophils (%) (Auto) 0.0 % Basophils (%) (Auto) 0.0 % Neutrophils # (Auto) 19.48 K/uL (1.4-6.5) Lymphocytes # (Auto) 0.76 K/uL (1.2-3.4) Monocytes # (Auto) 1.41 K/uL (0.11-0.59) Eosinophils # (Auto) 0.00 K/uL (0-0.5) Basophils # (Auto) 0.01 K/uL (0-0.2) RDW Standard Deviation 47.0 fL (36.4-46.3) RDW Coefficient of Variation 14.2 % (11.5-14.5) Immature Granulocyte % (Auto) 1.1 % Immature Granulocyte # (Auto) 0.24 K/uL (0.00-0.02) Sodium Level 140 mmol/L (136-145) Potassium Level 3.6 mmol/L (3.5-5.1) Chloride Level 108 mmol/L (98-107) Carbon Dioxide Level 24 mmol/L (21-32) Anion Gap 8.0 mmol/L (3-11) Blood Urea Nitrogen 36 mg/dl (7-18) Creatinine 0.92 mg/dl (0.60-1.20) Est Creatinine Clear Calc Drug Dose 38.2 ml/min Estimated GFR () 72.1 Estimated GFR (Non- 62.2 BUN/Creatinine Ratio 39.5 (10-20) Random Glucose 145 mg/dl (70-99) Calcium Level 7.3 mg/dl (8.5-10.1) Magnesium Level 1.8 mg/dl (1.8-2.4) Thyroid Stimulating Hormone (TSH) 0.225 uIu/ml (0.300-4.500) Thyroxine (T4) 7.7 mcg/dl (4.5-10.9) Free Triiodothyronine 1.64 pg/ml (2.30-4.20) Assessment & Plan Assessment * 71 yo malnourished female admitted with sepsis 2nd PNA and started on Unasyn and azithromycin. Now also with MRSA isolated in 1 of 2 blood cultures obtained 01/21. The paired blood culture remains negative at 72 hours. 2nd set of blood cultures obtained on 01/24 and are pending. Vancomycin to be added to regimen for MRSA coverage * Goal vancomycin trough 15-20 mcg/mL * SCr is at/near baseline with eCrCL ~30-38 mL/min * Low body weight * Typically requires higher doses in terms of mg/kg. Will start with 20 mg/kg maintenance * May lead to underestimation of CrCL and therefore overestimation of vancomycin t 1/2. Will therefore select interval slightly less than calculated t1/2 of 19-24 hours. * Difficult to accurately estimate vancomycin needs and will therefore obtain a very early level - this will be prior to steady state but will help to estimate what steady state level may be Plan * Vancomycin 1100 mg IV x1 then 900 mg IV q18h * Trough 01/26 @ 1930 Pharmacy will continue to follow and will adjust dose/frequency as necessary. Thank you
[2017-01-25] MEDS: LEVALBUTEROL 1.25MG/0.5ML NEB INH PRN (11:38)
[2017-01-25] MEDS: IPRATROPIUM BROMIDE NEB SOLN 0.02% 2.5 ML VIAL INH PRN (11:38)
--- NOTE | 2017-01-25 12:43 | Clinical Documentation Query ---
CLINICAL DOCUMENTATION QUERY Dr. ROCHE, In your clinical opinion is this patient being managed for: (x ) Severe protein-calorie malnutrition ( ) Other explanation of clinical findings (Please Explain) ( ) Unable to determine (Please Define) ( ) Need to Discuss ( ) Not Agree The medical record reflects the following clinical findings, treatment, and risk factors. Clinical Indicators: 71 yo female presenting with sepsis and pneumonia. Described as cachectic. Very poor oral intake prior to admission and this has continued since pt was admitted on 01/22. Per nursing documentation--a few bites, 0-25% of meal trays provided. Treatment:pt has been refusing meals, has been ordered boost breeze tid, psych consult Risk Factors: age, extended illness, COPD, chronic systolic CHF Severe Malnutrition Criteria: (2 criteria needed) Energy intake: <50% of estimated energy requirement for > 5 days Wt loss: 1-2% in 1 wk, 5% in 1 month, or 7.5% in 3 months Body fat: moderate loss of SQ fat from the orbits, triceps or fat overlying the ribs Muscle mass: moderate muscle wasting at the temples, clavicles, shoulders, interosseous spaces, scapula, thigh, calf Fluid accumulation: moderate to severe localized or generalized edema of the extremities, vulva, scrotum-wt loss may be masked by edema 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 Terms such as "probable", "suspected", "likely", "questionable", "possible", or "still to be ruled out" are acceptable. IF IN AGREEMENT, YOU MUST DOCUMENT ABOVE DIAGNOSTIC STATEMENT IN DAILY PROGRESS NOTES AND DISCHARGE SUMMARY. This document is not part of the patient's record. Thank You, Albina Salinas RN [phone]
[2017-01-25] MEDS ORDERED: METHYLPREDNISOLONE IV 40 MG in SYRINGE 0 ML IV ONE (13:30)
--- NOTE | 2017-01-25 14:06 | Cardiology Consultation ---
Cardiology Consultation Date of Service Jan 25, 2017. Cardiology Consultation Patient is a 71-year-old white female with prior history coronary artery disease , paroxysmal atrial fibrillation, paroxysmal atrial flutter, COPD, hypertension and dyslipidemia. She was admitted with intravascular volume depletion and acute kidney injury felt to be secondary to decreased oral intake as well as GI fluid losses from diarrhea. On this admission she has been diagnosed with a right lower lobe pneumonia and possible developing left lower lobe pneumonia. On admission she was in sinus rhythm. Over the past 18 hours she has had episodes of atrial fibrillation and flutter. Ventricular rates into the 170s. She was started on intravenous amiodarone overnight. As an outpatient the patient had been on oral amiodarone 200 milligrams daily. It is unclear whether she has actually been taking this on a daily basis. She did miss 1 dose in the hospital. The patient states she has had difficulty in swallowing her pills over the past few weeks secondary to severe pain in her mouth. This is the reason she has decreased her oral intake. At baseline she has poor oral intake. Last night she did have complaints of palpitations. With the palpitations she also had increased dyspnea as well as lightheadedness. This morning she denies any palpitations. No lightheadedness. She denies any dyspnea at rest. No orthopnea or PND. No fevers or chills. Nonproductive cough. No abdominal pain or nausea. No urinary complaints. No leg pain. No edema. No focal neurologic symptoms. Past medical history 1. Acute inferior myocardial infarction December 24, 2006. RV involvement. Complicated by cardiogenic shock. Bare metal stents deployed from mid to distal RCA. 2.5 x 12 millimeter and 2.75 x 24 millimeter stents. 2. Admission to [facility] April 2016 with constant chest pain felt to be secondary to musculoskeletal etiology. Her troponin I was elevated. Subsequent cardiac catheterization with severe LAD and RCA disease. Left-to- left and [id number] collateral flow. Medical therapy recommended. LV angiography with ejection fraction 40 percent. LV ejection fraction on echocardiography 40-45 percent. Inferior akinesis. Inferoseptal akinesis. Compared to a prior echo in 2006 the inferior and inferoseptal wall motion abnormalities were new. Echocardiogram in 2006 following her coronary intervention revealed normal LV systolic function and wall motion. 3. Admission with atrial flutter with rapid ventricular response May 13, 2016. Accompanied by severe dyspnea and palpitations. Intravenous diltiazem caused her to have severe bradycardia and hypotension. On admission she also had evidence of a COPD exacerbation. Was started on anticoagulation and amiodarone therapy on admission. Cardiac enzymes were elevated and thought to be secondary to demand myocardial ischemia. She was also treated for possible pneumonia at that time. 4. COPD. 5. Hypertension. 6. Dyslipidemia. 7. Osteoporosis. 8. GE reflux disease. 9. History of hypoxic encephalopathy. Past surgical history: 1. Status post hysterectomy. 2. Status post arthroscopic knee surgery. 3. Status post carpal tunnel release surgery. 4. Status post partial colectomy. 5. Status post tonsillectomy and adenoidectomy. Social history: The patient is a . She smokes cigarettes. She is still smoking cigarettes at the time of this admission. Allergies adverse drug reactions: Azithromycin, Levaquin, sulfa Current medications: Vancomycin 900 milligrams IV q.18 hours, Remeron 50 milligrams q.h.s., methylprednisolone 40 milligrams IV today, amiodarone 200 milligrams b.i.d., ampicillin/sulbactam 1500 milligrams IV q.6 hours, nystatin 5 milliliters p.o. q.i.d., Xopenex and Atrovent nebulizers, sodium bicarbonate 650 milligrams b.i.d., calcium with vitamin-D 1 tab b.i.d., Combivent 1 puff q.i.d., Eliquis 2.5 milligrams b.i.d., aspirin 81 milligrams daily, atorvastatin 80 milligrams daily, Advair Diskus 250/51 puff b.i.d., azithromycin 500 milligrams IV daily, and several p.r.n. medications. As an outpatient the patient had been on metoprolol 50 milligrams daily she had also been on lisinopril 10 milligrams daily. Family history: History of coronary artery disease in a brother. Review of systems: 1. As above. 2. No symptoms of bleeding. 3. No other HEENT complaints other than mouth and throat discomfort and dry mouth. . Exam: The patient is lying in bed. No distress. Intention tremors of both hands. Oral temperature this morning 36.7. Pulse 97. Blood pressure 109/61. Pulse oximetry on 4 liters/minute nasal cannula oxygen 91 percent. Neck: No jugular venous distention. Carotids 2/2 bilaterally. Normal upstroke. Mouth: Dry mucous membranes. No exudates noted on exam of the mouth or oropharynx. All No bruits. Lungs: Decreased breath sounds right lower lung field. No rales or wheezes. Heart: Distant heart sounds. Regular rate and rhythm. S1-S2 normal. No S3 or S4. 1/6 systolic murmur 2nd right intercostal space and left sternal border. No diastolic murmur or rub. Abdomen : Soft. Nontender. No palpable masses organomegaly. No bruits. Extremities: No pretibial edema. No calf tenderness. Neurologic: Alert and oriented x3. Motor grossly intact. Psychiatric: Affect is normal. Current monitor reveals sinus tachycardia. Review of monitor strips overnight electrocardiogram overnight by me shows of atrial flutter. Other monitor history revealed episodes of probable atrial fibrillation. Chest x-ray performed today and reviewed by me shows right lower lobe consolidation consistent with pneumonia. Infiltrate in left base. Labs today with sodium 140, potassium 3.6, chloride 108, carbon dioxide 24, BUN 36, creatinine 0.92, random glucose 145. T4 7.7. Free T3 1.64. TSH 0.2-5. Magnesium 1.8. On admission January 21 the BUN was 58 and creatinine 3.3. Potassium was 3.2. CBC today with WBC 21.9, hemoglobin 10.8, hematocrit 33.4, platelet count 271. Electrocardiogram last evening at 22:50 8:02 revealed atrial flutter the ventricular rate 174 beats per minute. Left axis deviation. Poor R-wave progression. lateral ST segment depressions consistent with ischemia. ECG reviewed by me. Electrocardiogram January 21 and reviewed by me showed normal sinus rhythm, right axis deviation, possible inferior OK, poor R-wave progression V1-V3, anterolateral ST T-wave abnormalities suggestive of ischemia. Assessment: 1. History of atrial fibrillation flutter. Development of atrial flutter with rapid ventricular response last evening. Paroxysmal episodes since then. Also episodes of probable atrial fibrillation. She was treated with intravenous amiodarone. She has since been switched to amiodarone 2 milligrams b.i.d.. As an outpatient she had been on amiodarone 200 milligrams daily. It is unclear whether she was taking this on a daily basis. She has severe underlying lung disease. This would be the main etiology factor for her recurrent atrial arrhythmia is. Also, she has a significant acute illness at this time. The stress from this illness would also increase risk of an atrial arrhythmia. 2. Coronary artery disease. No anginal symptoms of chest pain or other anginal type pains with the rapid ventricular response this admission. Cardiac catheterization April 2016 with 30 percent ostial left main, 100 percent mid LAD, 30 percent mid left circumflex, 99 percent proximal RCA, 95 percent mid RCA, and 90 percent distal RCA stenoses. [id number] collateral flow both to mid LAD from 1st LAD diagonal. Left to right collateral flow from left circumflex to RCA. Left to right collateral flow from LAD to PDA. 4. Ischemic cardiomyopathy. LV angiography April 2016 with inferior akinesis. Inferior apical severe hypokinesis. LV ejection fraction 40 percent. No evidence of congestive heart failure on exam at this time. 5. Severe oral discomfort. Possible fungal infection. 6. Acute kidney injury on admission secondary to intravascular volume depletion. Renal function has improved with intravenous fluids. recommendations: 1. Agree with increased amiodarone dose at this time to 200 milligrams b.i.d.. 2. P.r.n. intravenous metoprolol for recurrent elevated ventricular rates with atrial arrhythmia. Would not use intravenous diltiazem based on her prior history of severe bradycardia and hypotension with intravenous diltiazem. 3. Continue to hold lisinopril in light of her recent acute kidney injury. 4. Restart metoprolol. Could start with short-acting metoprolol tartrate 25 milligrams b.i.d.. 5. No further cardiac evaluation at this time. 6. Continued management of her severe underlying pulmonary disease. Continued medical management of her pneumonia. I will be away until February 05, 2017. Please contact my [facility] [place] Cardiology colleagues for any additional or further cardiac problems or issues. Thank you for asking me to see this patient in Cardiology consultation.
--- NOTE | 2017-01-25 14:10 | Progress Note ---
Subjective Date of Service: Jan 25, 2017. Subjective Pt evaluation today including: conversation w/ patient, conversation w/ family (son and daughter in law), physical exam, lab review, review of studies, review of inpatient medication list Pain: mouth pain, less intense PO Intake: very poor, only liquids and a few pieces of fruit Voiding: no voiding problems patient did not have a good night, went into RVR or SVT, required amiodarone, HR better this AM breathing is slowly deteriorating, now on 5L CXR this AM, now with effusions, worsening infiltrate, now with left infiltrate patient not eating still despite Megace and constant encouragement when asked why, she is just not hungry, not her mouth pain long talk with family without patient, they are concerned she is dying I agreed that she is deteriorating, very little reserve due to severe COPD/ emphysema and malnourished family feels that patient has given up, not eating asked them about code status, they would not want her intubated or CPR Problem List Medical Problems: (1) Acute kidney failure Status: Acute (2) CAD (coronary artery disease) Status: Acute (3) COPD exacerbation Status: Acute (4) Dysrhythmia Status: Acute (5) Fever Status: Acute (6) NSTEMI (non-ST elevated myocardial infarction) Status: Acute Review of Systems Constitutional: + weakness, + fatigue Respiratory: + cough, + sputum, + wheezing, + shortness of breath, + dyspnea on exertion, + dyspnea at rest Abdomen: + problem reported (no appetite) Neurologic: + weakness Psychiatric: + depression symptoms, + anxiety All Other Systems: Reviewed and Negative Medications Current Inpatient Medications Medications (Trade) Dose Ordered Sig/Eileen Route Start Time Stop Time Status Last Admin Dose Admin Acetaminophen (Tylenol Tab) 650 mg Q4H PRN PO 01/22/17 02:45 02/21/17 02:44 Al Hydrox/Mg Hydrox/Simethicone (Maalox Max Susp) 15 ml Q4H PRN PO 01/22/17 02:45 02/21/17 02:44 Magnesium Hydroxide (Milk Of Magnesia Susp) 30 ml Q12H PRN PO 01/22/17 02:45 02/21/17 02:44 Ondansetron HCl (Zofran Inj) 4 mg Q6H PRN IV 01/22/17 02:45 02/21/17 02:44 7/11/17 20:53 4 MG Polyethylene (Miralax Powder Packet) 17 gm DAILY PRN PO 01/22/17 02:45 02/21/17 02:44 Apixaban (Eliquis Tab) 2.5 mg BID PO 01/22/17 09:00 02/21/17 08:59 Future hold 01/25/17 08:32 2.5 MG Aspirin (Ecotrin Tab) 81 mg DAILY PO 01/22/17 09:00 02/21/17 08:59 01/25/17 08:32 81 MG Atorvastatin Calcium (Lipitor Tab) 80 mg DAILY PO 01/22/17 09:00 02/21/17 08:59 01/25/17 08:33 80 MG Salmeterol Xinafoate/ Fluticasone (Advair Diskus 250/50 Inh) 1 puff BID INH 01/22/17 09:00 02/21/17 08:59 01/25/17 08:31 1 PUFF Nitroglycerin (Nitrostat Tab) 0.4 mg PRN UT 01/22/17 02:45 02/21/17 02:44 Tramadol HCl (Ultram Tab) 50 mg Q6 PRN PO 01/22/17 02:45 02/21/17 02:44 01/24/17 01:04 50 MG Azithromycin 500 mg/Dextrose 255 ml @ 125 mls/hr Q24H IV 01/22/17 05:00 01/29/17 04:59 01/25/17 05:04 125 MLS/HR Ampicillin Sodium/ Sulbactam Sodium (Consult) 1 ea UD PRN N/A 01/22/17 04:30 02/21/17 04:29 Enteral Nutritional Formula (Boost Breeze Nutritional Drink) 1 box TIDM PO 01/22/17 16:45 02/21/17 16:44 01/25/17 11:23 1 BOX Menthol (Nice Marce) 1 marce PRN PRN PO 01/23/17 05:00 02/22/17 04:59 Sodium Bicarbonate (Sodium Bicarbonate Tab) 650 mg BID PO 01/23/17 21:00 02/22/17 20:59 01/25/17 08:31 650 MG Albuterol/ Ipratropium (Combivent Respimat Inh) 1 puffs QID INH 01/23/17 13:00 02/22/17 12:59 01/25/17 13:14 1 PUFFS Calcium/Vitamin D (Caltrate Plus Tab) 1 tab BID PO 01/23/17 21:00 02/22/17 20:59 01/25/17 08:32 1 TAB Nystatin (Mycostatin Susp) 5 ml QID PO 01/24/17 13:00 02/03/17 12:59 01/25/17 13:14 5 ML Ipratropium [place] (Atrovent 0.02% 0.5MG/2.5ML Neb) 0.5 mg Q6R PRN INH 01/24/17 11:30 02/23/17 11:29 01/25/17 11:38 0.5 MG Levalbuterol (Xopenex 1.25MG/ 0.5ML Neb) 1.25 mg Q6R PRN INH 01/24/17 11:30 02/23/17 11:29 01/25/17 11:38 1.25 MG Ampicillin Sodium/ Sulbactam Sodium 1500 mg/Sodium Chloride 104 ml @ 200 mls/hr Q6@0200,0800,1400,2000 IV 01/24/17 20:00 01/29/17 19:59 01/25/17 13:15 200 MLS/HR Amiodarone HCl (Cordarone Tab) 200 mg BID PO 01/25/17 09:00 02/24/17 08:59 01/25/17 08:32 200 MG Vancomycin HCl (Consult) 1 ea UD PRN N/A 01/25/17 08:45 02/24/17 08:44 Vancomycin HCl 900 mg/Sodium Chloride 268 ml @ 125 mls/hr Q18H IV 01/26/17 02:00 02/09/17 01:59 Mirtazapine (Remeron Tab) 15 mg HS PO 01/25/17 21:00 02/24/17 20:59 Objective Vital Signs Date Time Temp Pulse Resp B/P (MAP) Pulse Ox O2 Delivery O2 Flow Rate FiO2 01/25/17 12:00 94 Nasal Cannula 3.5 01/25/17 11:49 36.7 109 26 143/74 (97) 90 Nasal Cannula 5.0 01/25/17 11:42 109 24 84 Nasal Cannula 5.0 01/25/17 08:00 94 Nasal Cannula 3.5 01/25/17 07:27 36.7 97 25 109/61 (77) 91 Nasal Cannula 4.0 01/25/17 04:20 122/63 (82) 01/25/17 04:00 Nasal Cannula 5.0 01/25/17 03:45 99/46 (63) 01/25/17 03:29 37.0 147 18 104/63 (77) 93 Nasal Cannula 5.0 01/25/17 01:50 107 18 104/65 (78) 92 Nasal Cannula 5.0 01/25/17 00:28 117 20 133/67 (89) 91 01/25/17 00:20 176 115/69 (84) 01/25/17 00:00 180 115/78 (90) 86 Nasal Cannula 5.0 01/25/17 00:00 Nasal Cannula 5.0 01/24/17 23:29 114 32 90 Nasal Cannula 5.0 01/24/17 23:05 36.9 174 20 135/88 (104) 86 Nasal Cannula 5.0 01/24/17 23:02 119/85 (96) 01/24/17 23:00 89/71 (77) 01/24/17 20:02 37.0 116 26 138/70 (92) 95 Nasal Cannula 4.0 01/24/17 20:00 96 Nasal Cannula 4.0 Humidified Oxygen 01/24/17 16:00 94 Nasal Cannula 4.0 01/24/17 15:10 36.5 113 23 111/57 (75) 94 Nasal Cannula 4.0 01/24/17 14:06 114 30 83 Nasal Cannula 4.0 Physical Exam General Appearance: + mild distress, + cachetic Eyes: normal inspection, EOMI, sclerae normal ENT: hearing grossly normal, TMs normal, + pertinent finding (less oral mucosa erythema today) Neck: supple, no adenopathy, no JVD Respiratory/Chest: chest non-tender, + respiratory distress (mild), + decreased breath sounds, + accessory muscle use, + wheezing Cardiovascular: no edema, no gallop, no JVD, no murmur, + tachycardia Abdomen: normal bowel sounds, non tender, soft, no organomegaly Extremities: normal range of motion, non-tender, normal inspection, no pedal edema, no calf tenderness Neurologic/Psychiatric: vp of customer experience strategy II-XII nml as tested, alert, + motor weakness Skin: normal color, warm/dry, no rash Laboratory Results CHEST ONE VIEW PORTABLE CLINICAL HISTORY: 71 years-old Female presenting with Hypoxia. TECHNIQUE: Portable upright AP view of the chest was obtained. COMPARISON: 01/21/[address] from 01/22/2017. FINDINGS: Atherosclerosis of the aortic arch. Persistent perihilar and right mid and lower lung opacity with greater volume loss in the right lung. Interval development of moderate right pleural effusion. Interval development of significant left basilar predominant opacity possibly with a trace left pleural effusion. Background emphysematous changes. No pneumothorax. Osseous structures normal. Gaseous distention of colon. IMPRESSION: 1. Interval development of moderate right and trace left parapneumonic effusions. 2. Decrease right lung aeration and persistent diffuse right lung consolidation consistent with pneumonia. 3. Interval development of left basilar consolidation, consistent with worsening pneumonia and/or aspiration. Last 24 Hours Test 01/25/17 03:47 White Blood Count 21.90 K/uL Red Blood Count 3.71 M/uL Hemoglobin 10.8 g/dL Hematocrit 33.4 % Mean Corpuscular Volume 90.0 fL Mean Corpuscular Hemoglobin 29.1 pg Mean Corpuscular Hemoglobin Concent 32.3 g/dl Platelet Count 271 K/uL Mean Platelet Volume 9.1 fL Neutrophils (%) (Auto) 89.0 % Lymphocytes (%) (Auto) 3.5 % Monocytes (%) (Auto) 6.4 % Eosinophils (%) (Auto) 0.0 % Basophils (%) (Auto) 0.0 % Neutrophils # (Auto) 19.48 K/uL Lymphocytes # (Auto) 0.76 K/uL Monocytes # (Auto) 1.41 K/uL Eosinophils # (Auto) 0.00 K/uL Basophils # (Auto) 0.01 K/uL RDW Standard Deviation 47.0 fL RDW Coefficient of Variation 14.2 % Immature Granulocyte % (Auto) 1.1 % Immature Granulocyte # (Auto) 0.24 K/uL Sodium Level 140 mmol/L Potassium Level 3.6 mmol/L Chloride Level 108 mmol/L Carbon Dioxide Level 24 mmol/L Anion Gap 8.0 mmol/L Blood Urea Nitrogen 36 mg/dl Creatinine 0.92 mg/dl Est Creatinine Clear Calc Drug Dose 38.2 ml/min Estimated GFR () 72.1 Estimated GFR (Non- 62.2 BUN/Creatinine Ratio 39.5 Random Glucose 145 mg/dl Calcium Level 7.3 mg/dl Magnesium Level 1.8 mg/dl Thyroid Stimulating Hormone (TSH) 0.225 uIu/ml Thyroxine (T4) 7.7 mcg/dl Free Triiodothyronine 1.64 pg/ml Assessment and Plan 71 y/o F Paroxysmal Aflutter, chronic systolic CHF, advanced COPD, CAD, dementia. Pt presents with 4-5 days of diarrhea and poor PO intake. She has become progressively weak and "shaky" per family. The pt states that she has an oral ulcer which makes eating painful in addition to a sore throat. She has occasional lower abdominal pain which resolves following a bowel movement. She denied a productive cough, SOB above baseline, CP or fevers. The pt was hypotensive on arrival to the ER and has responded to a fluid bolus. Initial labs are notable for ARF, hyponatremia and marked leukocytosis. A CT abdomen did not reveal any acute findings. A CXR shows a large consolidation in her R lung which was not present on imaging 06/30. - Sepsis POA due to Right lower lobe pneumonia: continue Zosyn and Zithromax, not responding well to treatment repeat CXR today shows worsening right infiltrate and now developing left infiltrate blood culture grew MRSA (1 of 2) but MRSA nasal swab negative, will add Vancomycin since she is deteriorating clinically still with weak cough, afebrile, + leukocytosis with little improvement - Non-gapped metabolic acidosis: due to diarrhea, improved, HCO3 at 20 today stop IV fluids today - Acute hypoxic respiratory failure: due to pneumonia on top of severe COPD now up to 5L, more distress, accessory muscle use some effusions on CXR but BP low, cannot really diurese - EDUARDO - appears to be prerenal azotemia since Cr and BUN improving with fluids K is normal Mg is normal at 2.1 - Hypocalcemia: Vitamin D low normal at 36, will continue Calcium with Vitamin D - COPD - no wheezing, continue Combivent and Levalbuterol nebs will give Solu Medrol 40mg IV x 1 to see if it helps breathing - chronic systolic heart failure - careful monitoring of volume status will be necessary to avoid overload as her EF is 30-35% continue to hold BB with low normal BP fluids stopped today, examines euvolemic - A flutter - went into RVR overnight, resolved with Amiodarone IV, still holding metoprolol due to low BP will resume with hold parameters - Cachexia - pt's weight needs to be addressed no improvement with Megace and constant encouragement stop Megace, start Remeron 15mg HS consult psychiatry, concern for severe depression discussed alternative nutrition options, patient would not want PEG unclear cause of loss of appetite, normal abdomen on CT no role for GI consult, currently she could not undergo an EGD with her breathing - Mouth pain: erythematous and dry on exam, will add Nystatin and look for improvement mild improvement today social issues: patient lives with youngest son, per other family members, the house is filthy, concerned that she is not getting proper care anticipate needing rehab, possible long-term placement plan for [facility] once medically stable however, patient is deteriorating, may not survive hospitalization plan to address code status again today
[2017-01-25] MEDS: MIRTAZAPINE TAB 15 MG TAB PO SCH (20:52)
[2017-01-26] VITALS (9 sets, daily range): BP systolic 118–142; BP diastolic 59–101; PULSE 89–124; TEMP 36.3–36.8; O2SAT 87–97
[2017-01-26] MEDS: AMPICILLIN/SULBACTAM SOD INJ 1,500 MG in SODIUM CHLORIDE 0.9% 100ML 100 ML IV SCH ×4 (01:23→20:29)
[2017-01-26] MEDS: VANCOMYCIN INJ 900 MG in SODIUM CHLORIDE 0.9% 250ML 250 ML IV SCH ×2 (03:20→21:34)
[2017-01-26] MEDS: AZITHROMYCIN IV 500 MG in DEXTROSE 5% 250ML 250 ML IV SCH (05:14)
[2017-01-26 07:02] LABS: CREATININE 0.93 mg/dl (0.60-1.20)
[2017-01-26] MEDS: BOOST BREEZE NUTRITION DRINK 1 BOX PO SCH ×3 (07:30→16:33)
[2017-01-26] MEDS: IPRATROPIUM BROMIDE/ALBUTEROL respimat INH INH SCH ×4 (08:08→20:20)
[2017-01-26] MEDS: SODIUM BICARBONATE 650 MG TAB PO SCH ×2 (08:09→20:21)
[2017-01-26] MEDS: NYSTATIN SUSP 500,000 U/5 ML UDC PO SCH ×4 (08:09→20:22)
[2017-01-26] MEDS: AMIODARONE 200 MG TAB PO SCH ×2 (08:10→20:23)
[2017-01-26] MEDS: CALCIUM 600MG + VIT D 400 IU TAB PO SCH ×2 (08:10→20:23)
[2017-01-26] MEDS: APIXABAN 2.5 MG TAB PO SCH ×2 (08:10→20:23)
[2017-01-26] MEDS: ATORVASTATIN 40 MG TAB PO SCH (08:11)
[2017-01-26] MEDS: ASPIRIN 81 MG ECTAB PO SCH (08:11)
[2017-01-26] MEDS: FLUTICASONE/SALMETEROL 250/50 (ADVAIR) 14 PUFF/1 INHALER INH SCH ×2 (08:12→20:20)
--- NOTE | 2017-01-26 10:53 | Psychiatric Consultation ---
Consultation Date of Consultation Jan 26, 2017. Chief Complaint "I came into the hospital because I was real tired and weak." History of Present Illness The patient is a 71-year-old woman who originally presented with complaints of fatigue and general weakness, within the context of multiple medical problems. Patient's medical problems include paroxysmal atrial flutter, chronic systolic congestive heart failure, advanced COPD, coronary artery disease, and dementia. The record indicates the patient had been experiencing diarrhea for about 4 or 5 days prior to the admission, and had had poor oral intake. The patient's family reported that she was becoming progressively more weak and tremulous. The patient, herself, says that she has a "pretty good," but she has had a sore throat and a "sore in [her] mouth." The patient adds that a problem is that she isn't being given "the right food," by which she means a certain type of [place] food. She also has complained of abdominal pain following bowel movements. She was hypotensive and hyponatremic on admission and was hydrated intravenously, and her sodium levels. A chest x-ray revealed a large consolidation in her R lung not present on a CXR in June and consistent with pneumonia. The patient lives with one of her sons and a mobile home in or near [place], [place]. She has a second son who is , lives in the area, and has 4 children. Her family is involved and supportive. She identifies the son who lives with her as her primary apricot packer. However, she acknowledges that her son is at work most days and she is alone at home during those times. Psychiatric has been consulted to assess her for depression. Past Psychiatric History Prior OP Treatment: no prior treatment (the patient indicates that she has never seen a psychiatrist before, but acknowledges that "a long long time ago" she took some form of psychiatric medication, possibly for depression or, as she put it, "nerves." She does not recall the name of the medication) Prior Psych Hospitalizations: none Access to a Gun: No Suicide Attempts: No Past Medical/Surgical History History of Concussion/Seizure: No Allergies Allergies: Coded Allergies: Sulfa Antibiotics (Verified Allergy, Unknown, SWELLING, 07/13/16) Home Medications Scheduled Amiodarone Hcl (Cordarone), 200 MG PO DAILY Apixaban (Eliquis), 2.5 MG PO BID Aspirin (Aspirin Ec), 81 MG PO DAILY Atorvastatin Calcium (Lipitor), 80 MG PO DAILY Ergocalciferol (Vitamin D 10952 Unit), 1 TAB PO WK Fluticasone Prop/Salmeterol (Advair Diskus 250/50 60 Dose), 1 PUFF INH BID Ipratropium-Albuterol (Combivent Respimat), 1 PUFFS INH QID Lisinopril (Zestril), 10 MG PO DAILY Metoprolol Succ (Toprol Xl) (Toprol-Xl), 50 MG PO DAILY Nitroglycerin (Nitrostat), 0.4 MG UT PRN Scheduled PRN Ipratropium-Albuterol (Duoneb), 1 TREATMENT INH Q4 PRN for SOB/Wheezing Tramadol (Ultram), 50-100 MG PO Q6 PRN for Pain Family History No pertinent family history History of Suicide: No History of Substance Abuse: No Psychiatric History: No Alcohol Use Alcohol Use In Past 12 Months: No (The patient reports that, in her youth, she "used to drink," but says that she never drank in excess and now hasn't consumed alcohol for many years) Smoking Use Smoking Status: Current Every Day Smoker Substance History The patient reports that she has never used drugs of abuse. She does acknowledge that, in her youth, she "used to drink." However, she says that she has not consumed any alcohol for a number of years now. The patient denies any history of abuse or neglect. Personal History Lives in: [place], [place] Childhood: The patient indicates that she is always lived in [facility]. Her father of heart disease, and her mother suffered from COPD. There is also family history of cancer (sister). 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 She said that she has not worked outside of the home for many years now. Relationship History: (the patient reports that her in 1984 of a myocardial infarction.) Children: Patient has 2 adult sons and 4 grandchildren. Spiritual Affiliation: "Islam" Legal History: none Psychological Trauma History: Denies Hx Traumatic Event (but notes that her at a young age and that his was unexpected and hard for her.) Review of Systems See admission history and physical. The patient tells me that she has COPD, heart disease, heart failure, and "ammonia." (And elevated's serum ammonia level was not identified in the record.) She also reports generalized weakness and fatigue. Examination Vital Signs Vital Signs Past 12 Hours Date Time Temp Pulse Resp B/P (MAP) Pulse Ox O2 Delivery O2 Flow Rate FiO2 01/26/17 07:26 36.4 101 24 124/74 (91) 90 Nasal Cannula 3.0 01/26/17 04:05 36.5 96 24 132/66 (88) 94 Nasal Cannula 4.0 01/26/17 04:00 High Flow Oxygen 4.0 Nasal Cannula 01/25/17 23:59 High Flow Oxygen 6.0 Nasal Cannula 01/25/17 23:39 36.5 103 24 114/54 (74) 88 Nasal Cannula 6.0 Humidified Oxygen Laboratory Results Last 24 Hours Test 01/26/17 05:38 Creatinine 0.93 mg/dl Est Creatinine Clear Calc Drug Dose 40.6 ml/min Estimated GFR () 71.2 Estimated GFR (Non- 61.4 Mental Examination During interview pt is: cooperative, other (She appears to be eager to minimize deficits, and indicates that she is aware that there is consideration of not allowing her to go back home with her son.) Appearance: other (the patient is found sitting up in a chair next to her bed. She is dressed in a hospital gown and is wearing a mask for supplemental oxygen. She appears very thin and frail, and significantly older than her stated age.) Eye contact is: poor Motor behavior is: tremor (she has a 3-6 beats per second coarse tremor of both upper extremities. The patient tells me that she "always has the shakes." However, the record indicates that the family reports that the patient's tremulousness has worsened.) Speech: other (the patient speaks in complete sentences, but her voice is soft and somewhat dysarthric.) Affect: constricted (She smiles appropriately on several occasions, and engages in the interview. She also makes several remarks that she intended as humerus.) Mood is: other (The patient denies feeling depressed. She says that she had been "nervous about [her] health," but is feeling a lot better now in the hospital.) Thought process: goal directed, linear, logical, other (the patient makes several a phasic mistakes, and has some word finding difficulties.) Thought content: reality based without delusions, other (Mrs. Becerra tells me that she has not been eating regularly because "they don't bring me the right kind of food." She tells me by that she means a certain kind of [place] dish that involves noodles. She cannot recall the name of the, but says that the noodles are "red." She also minimizes her poor oral intake by saying, "I don't ever eat breakfast at home. Why should I eat it here?" She tells me, however, she does have somewhat of an appetite, but then adds, "when you're sick as I am , you don't want much food.") Suicidal thought are: denied (The patient denies any history of suicidal ideation or any history of intentional self-injurious behaviors.) Homicidal thoughts are: denied Hallucinations: other (before entering the room for the first time, I observed the patient sitting in a chair. Her eyes were closed, and she appeared to be talking to herself. She continued to talk herself all I gowned. After entering the room and introducing myself, I asked the patient to tell me to whom she was speaking, and she responded, "Me. I was talking to myself. Everybody does that sometimes.") Cognition: other (the patient is oriented to person, place, time, and situation. She correctly recalled my profession after about 15 minutes, although had a great deal of difficulty finding the word, "psychiatrist." She was unable to recall any of 3 objects after 5 minutes. The patient was not able to cooperate with the Mini-Mental status examination, and said that she was "too weak.") Intelligence estimated to be: average Insight: poor Judgement: poor (The patient minimizes the extent of her impairmen, as well as her ability to function independently. She notes that her son works, and she claims that she "does just fine" at home alone during the day. However, when it is pointed out to her that she hasn't been eating, she again tells me that the problem has been that she isn't feeling well, and that she isn't getting "the food I like.") Impression / Recommendations Impression This 71-year-old woman presents with a number of complaints, including fatigue, weakness, and poor oral intake. These features occur within the context of multiple somatic problems, including advanced COPD, congestive heart failure, and possible pneumonia. She reports that in the remote past she was given some form of medication by "a doctor" either for depression or for anxiety, but she does not recall the name of the medication and as that she does not recall if it helped. The patient is not a reliable historian, but she tells me that she "sleeps really good," and minimizes her poor oral intake by saying that she is "too sick to have much of an appetite," and also attributes the poor oral intake to "did not give me the right food." There is evidence of cognitive impairment Alicja and she makes a phasic mistakes and has difficulty with word finding. She also has difficulty with short-term memory, as evidenced by the fact that she was unable to recall any of 3 objects after 5 minutes. However, this may also benefit function of poor concentration. The patient was fully oriented to person, place, time and situation, and she was able to correctly recall my profession after 15 minutes, and I had only mentioned my role once. It's not clear to me how much hypoxia may be contributing to the patient's memory difficulties. She may be experiencing some symptoms of depression, although she does not endorse this. Her constricted affect occurs within the context of a number of very serious nonpsychiatric medical problems, and I would not recommend antidepressant medication at this time. Risk Factors Assessment : Yes /single/: Yes Higher / Fall in social status: No Access to guns: No Health problems: Yes Mental Health Diagnoses: No Substance use disorders: No Previous attempt: No Previous attempt;highly lethal: No Previous attempt; planned: No Previous attempt; didn't tell: No Family history of suicide: No Previous psychiatric stay: No Hopelessness: No Smoker: Yes Protective Factors Assessment Advent beliefs: Yes : No Responsible for young children: No Employed: No Stable relationships: Yes Supportive family: Yes Good rapport with provider: Yes Absence of risk factors above: No Recommendations 1.) The patient is not febrile, but could she be septic? 2.) Has she been evaluated for C-dif? 3.) If not already arranged, I would consider requesting a consult by palliative care. 4.) I am not recommending treatment for depression at this time.
[2017-01-26] MEDS ORDERED: LIDOCAINE HCL 2% VISC SOLN 20 ML UDC MT PRN (13:15)
[2017-01-26] MEDS: IPRATROPIUM BROMIDE NEB SOLN 0.02% 2.5 ML VIAL INH PRN ×2 (14:52→18:54)
[2017-01-26] MEDS: LEVALBUTEROL 1.25MG/0.5ML NEB INH PRN ×2 (14:52→18:54)
[2017-01-26] MEDS ORDERED: METOPROLOL TARTRATE 1 MG/ML VIAL IV STA (15:41)
[2017-01-26] MEDS ORDERED: METOPROLOL SUCC 50MG EXT REL TAB PO STA (15:41)
--- NOTE | 2017-01-26 15:56 | Progress Note ---
Subjective Date of Service: Jan 26, 2017. Subjective Pt evaluation today including: conversation w/ patient, conversation w/ family (sons and daughter in law), physical exam, lab review, review of inpatient medication list Pain: mouth pain PO Intake: slight improvement Voiding: no voiding problems patient feels like she is breathing slightly better today, saturations still in the 80's appetite is slightly better, but still not eating meals discussed situation with patient and family, all in agreement that she wants to be level 5 DNR is something would happen discussed that we will take things one day at a time, patient could continue to improve or deteriorate, they are all aware Problem List Medical Problems: (1) Acute kidney failure Status: Acute (2) CAD (coronary artery disease) Status: Acute (3) COPD exacerbation Status: Acute (4) Dysrhythmia Status: Acute (5) Fever Status: Acute (6) NSTEMI (non-ST elevated myocardial infarction) Status: Acute Review of Systems Constitutional: + weakness, + fatigue Respiratory: + cough, + wheezing, + dyspnea at rest Abdomen: + problem reported (mouth pain, poor appetite) Psychiatric: + depression symptoms All Other Systems: Reviewed and Negative Medications Current Inpatient Medications Medications (Trade) Dose Ordered Sig/Eileen Route Start Time Stop Time Status Last Admin Dose Admin Acetaminophen (Tylenol Tab) 650 mg Q4H PRN PO 01/22/17 02:45 02/21/17 02:44 Al Hydrox/Mg Hydrox/Simethicone (Maalox Max Susp) 15 ml Q4H PRN PO 01/22/17 02:45 02/21/17 02:44 Magnesium Hydroxide (Milk Of Magnesia Susp) 30 ml Q12H PRN PO 01/22/17 02:45 02/21/17 02:44 Ondansetron HCl (Zofran Inj) 4 mg Q6H PRN IV 01/22/17 02:45 02/21/17 02:44 01/23/17 20:53 4 MG Polyethylene (Miralax Powder Packet) 17 gm DAILY PRN PO 01/22/17 02:45 02/21/17 02:44 Apixaban (Eliquis Tab) 2.5 mg BID PO 01/22/17 09:00 02/21/17 08:59 Future hold 01/26/17 08:10 2.5 MG Aspirin (Ecotrin Tab) 81 mg DAILY PO 01/22/17 09:00 02/21/17 08:59 01/26/17 08:11 81 MG Atorvastatin Calcium (Lipitor Tab) 80 mg DAILY PO 01/22/17 09:00 02/21/17 08:59 01/26/17 08:11 80 MG Salmeterol Xinafoate/ Fluticasone (Advair Diskus 250/50 Inh) 1 puff BID INH 01/22/17 09:00 02/21/17 08:59 01/26/17 08:12 1 PUFF Nitroglycerin (Nitrostat Tab) 0.4 mg PRN UT 01/22/17 02:45 02/21/17 02:44 Tramadol HCl (Ultram Tab) 50 mg Q6 PRN PO 01/22/17 02:45 02/21/17 02:44 01/24/17 01:04 50 MG Azithromycin 500 mg/Dextrose 255 ml @ 125 mls/hr Q24H IV 01/22/17 05:00 01/29/17 04:59 01/26/17 05:14 125 MLS/HR Ampicillin Sodium/ Sulbactam Sodium (Consult) 1 ea UD PRN N/A 01/22/17 04:30 02/21/17 04:29 Enteral Nutritional Formula (Boost Breeze Nutritional Drink) 1 box TIDM PO 01/22/17 16:45 02/21/17 16:44 01/25/17 17:18 1 BOX Menthol (Nice Marce) 1 marce PRN PRN PO 01/23/17 05:00 02/22/17 04:59 Sodium Bicarbonate (Sodium Bicarbonate Tab) 650 mg BID PO 01/23/17 21:00 02/22/17 20:59 01/26/17 08:09 650 MG Albuterol/ Ipratropium (Combivent Respimat Inh) 1 puffs QID INH 01/23/17 13:00 02/22/17 12:59 01/26/17 08:08 1 PUFFS Calcium/Vitamin D (Caltrate Plus Tab) 1 tab BID PO 01/23/17 21:00 02/22/17 20:59 01/26/17 08:10 1 TAB Nystatin (Mycostatin Susp) 5 ml QID PO 01/24/17 13:00 02/03/17 12:59 01/26/17 08:09 5 ML Ipratropium [place] (Atrovent 0.02% 0.5MG/2.5ML Neb) 0.5 mg Q6R PRN INH 01/24/17 11:30 02/23/17 11:29 01/26/17 14:52 0.5 MG Levalbuterol (Xopenex 1.25MG/ 0.5ML Neb) 1.25 mg Q6R PRN INH 01/24/17 11:30 02/23/17 11:29 01/26/17 14:52 1.25 MG Ampicillin Sodium/ Sulbactam Sodium 1500 mg/Sodium Chloride 104 ml @ 200 mls/hr Q6@0200,0800,1400,2000 IV 01/24/17 20:00 01/29/17 19:59 01/26/17 13:36 200 MLS/HR Amiodarone HCl (Cordarone Tab) 200 mg BID PO 01/25/17 09:00 02/24/17 08:59 01/26/17 08:10 200 MG Vancomycin HCl (Consult) 1 ea UD PRN N/A 01/25/17 08:45 02/24/17 08:44 Vancomycin HCl 900 mg/Sodium Chloride 268 ml @ 125 mls/hr Q18H IV 01/26/17 02:00 02/09/17 01:59 01/26/17 03:20 125 MLS/HR Mirtazapine (Remeron Tab) 15 mg HS PO 01/25/17 21:00 02/24/17 20:59 01/25/17 20:52 15 MG Lidocaine HCl (Viscous Lidocaine 2% Soln) 20 ml Q6 PRN MT 01/26/17 13:15 02/25/17 13:14 Metoprolol Tartrate (Lopressor Iv) 5 mg NOW STAT IV 01/26/17 15:41 01/26/17 15:42 UNV Metoprolol Succinate (Toprol Xl Tab) 50 mg NOW STAT PO 01/26/17 15:41 01/26/17 15:42 UNV Metoprolol Succinate (Toprol Xl Tab) 50 mg QAM PO 01/27/17 09:00 02/26/17 08:59 UNV Objective Vital Signs Date Time Temp Pulse Resp B/P (MAP) Pulse Ox O2 Delivery O2 Flow Rate FiO2 01/26/17 15:12 36.5 113 30 137/63 (87) Nasal Cannula 2.0 01/26/17 14:52 111 20 91 Nasal Cannula 4.0 01/26/17 12:00 Nasal Cannula 2.0 01/26/17 11:48 36.3 100 26 125/77 (93) 88 Nasal Cannula 2.0 01/26/17 08:00 Nasal Cannula 2.0 01/26/17 07:26 36.4 101 24 124/74 (91) 90 Nasal Cannula 3.0 01/26/17 04:05 36.5 96 24 132/66 (88) 94 Nasal Cannula 4.0 01/26/17 04:00 High Flow Oxygen 4.0 Nasal Cannula 01/25/17 23:59 High Flow Oxygen 6.0 Nasal Cannula 01/25/17 23:39 36.5 103 24 114/54 (74) 88 Nasal Cannula 6.0 Humidified Oxygen 01/25/17 20:00 90 Nasal Cannula 6.0 01/25/17 18:51 36.8 106 31 147/53 (84) 90 Nasal Cannula 6.0 01/25/17 16:00 88 Nasal Cannula 5.0 Physical Exam General Appearance: + mild distress, + cachetic ENT: hearing grossly normal, TMs normal, + pertinent finding (mild oral erythema, tongue dry and cracked) Neck: supple, no adenopathy, no JVD, trachea midline Respiratory/Chest: chest non-tender, + respiratory distress, + decreased breath sounds, + accessory muscle use, + wheezing Cardiovascular: no edema, no gallop, no JVD, no murmur, + tachycardia Abdomen: normal bowel sounds, non tender, soft, no organomegaly Extremities: normal range of motion, non-tender, normal inspection, no pedal edema, no calf tenderness, pelvis stable Neurologic/Psychiatric: child support specialist II-XII nml as tested, alert, normal mood/affect, oriented x 3, + motor weakness, + pertinent finding (tremors) Skin: normal color, warm/dry, no rash Laboratory Results Last 24 Hours Test 01/26/17 05:38 Creatinine 0.93 mg/dl Est Creatinine Clear Calc Drug Dose 40.6 ml/min Estimated GFR () 71.2 Estimated GFR (Non- 61.4 Assessment and Plan 71 y/o F Paroxysmal Aflutter, chronic systolic CHF, advanced COPD, CAD, dementia. Pt presents with 4-5 days of diarrhea and poor PO intake. She has become progressively weak and "shaky" per family. The pt states that she has an oral ulcer which makes eating painful in addition to a sore throat. She has occasional lower abdominal pain which resolves following a bowel movement. She denied a productive cough, SOB above baseline, CP or fevers. The pt was hypotensive on arrival to the ER and has responded to a fluid bolus. Initial labs are notable for ARF, hyponatremia and marked leukocytosis. A CT abdomen did not reveal any acute findings. A CXR shows a large consolidation in her R lung which was not present on imaging 06/30. - Sepsis POA due to Right lower lobe pneumonia: continue Zosyn and Zithromax and Vancomycin, mild improvement today repeat CXR on 01/25 showed worsening right infiltrate and now developing left infiltrate blood culture grew MRSA (1 of 2) but MRSA nasal swab negative and repeat cultures negative still with weak cough, afebrile, + leukocytosis - Non-gapped metabolic acidosis: due to diarrhea, resolved - Acute hypoxic respiratory failure: due to pneumonia on top of severe COPD was on only 2L earlier but now back on mask and requiring 7L via mask goal is 86-88%, suspect she lives in high 80's at home, typically doesn't wear oxygen will give Solu Medrol 40mg IV again would not want intubated if she deteriorates - EDUARDO - appears to be prerenal azotemia since Cr and BUN improving with fluids resolved, repeat labs tomorrow - Hypocalcemia: Vitamin D low normal at 36, will continue Calcium with Vitamin D - COPD - no wheezing, continue Combivent and Levalbuterol nebs continue Solu Medrol 40mg IV daily - chronic systolic heart failure - careful monitoring of volume status will be necessary to avoid overload as her EF is 30-35% continue to hold BB with low normal BP fluids stopped today, examines euvolemic - A flutter - back to sinus tachycardia, give Metoprolol 5mg IV now and Toprol 50mg PO now - Cachexia - pt's weight needs to be addressed no improvement with Megace and constant encouragement, stopped Megace continue Remeron 15mg discussed alternative nutrition options, patient would not want PEG unclear cause of loss of appetite, normal abdomen on CT no role for GI consult, currently she could not undergo an EGD with her breathing - Mouth pain: erythematous and dry on exam, will add Nystatin and look for improvement no improvement on Nystatin add viscous lidocaine social issues: patient lives with youngest son, per other family members, the house is filthy, concerned that she is not getting proper care anticipate needing rehab, possible skilled nursing placement plan for [facility] once medically stable DNR
[2017-01-26] MEDS ORDERED: METHYLPREDNISOLONE IV 40 MG in SYRINGE 0 ML IV ONE (16:00)
[2017-01-26] MEDS ORDERED: VANCOMYCIN TROUGH ONE (19:30)
[2017-01-26] MEDS: MIRTAZAPINE TAB 15 MG TAB PO SCH (20:22)
--- NOTE | 2017-01-26 21:29 | Pharmacy Progress Note ---
Pharmacy Abx Dose Short Note Date of Service Jan 26, 2017. Assessment & Plan Assessment 71 year old female receiving IV Vancomycin for treatment of MRSA bacteremia Day # 2 of antimicrobial therapy. Plan Vancomycin * Trough level of 15.2 mcg/mL is therapeutic; this is an early level, not yet reflective of steady state; actual level at steady state may be higher * Continue dose of 900 mg IV every 18 hours * Goal trough level for bacteremia : 15 to 20 mcg/mL * Trough or random level ordered for: 01/28/17 @ 0730 (before 4th dose, which should be reflective of steady state) Pharmacy will continue to follow and will adjust dose/frequency as necessary. Thank you.
[2017-01-27] VITALS (10 sets, daily range): BP systolic 117–147; BP diastolic 55–75; PULSE 63–88; TEMP 36.3–36.8; O2SAT 79–94
[2017-01-27] MEDS: AMPICILLIN/SULBACTAM SOD INJ 1,500 MG in SODIUM CHLORIDE 0.9% 100ML 100 ML IV SCH ×4 (02:07→19:58)
[2017-01-27] MEDS: AZITHROMYCIN IV 500 MG in DEXTROSE 5% 250ML 250 ML IV SCH (05:07)
[2017-01-27 06:09] LABS: COMPLETE YES; HEMATOCRIT 29.6 % (37-47); IG% 0.6 %; LYMPH ABS # 0.32 K/uL (1.2-3.4); MEAN CELL VOLUME 90.8 fL (80-100); MEAN CORPUSCULAR HEMOGLOBIN 29.1 pg (25-34); MEAN CORPUSCULAR HGB CONC 32.1 g/dl (32-36); MEAN PLATELET VOLUME 9.5 fL (7.4-10.4); NEUT % 94.4 %; PLATELET COUNT 217 K/uL (130-400); RED BLOOD COUNT 3.26 M/uL (4.2-5.4); WHITE BLOOD COUNT 15.83 K/uL (4.8-10.8)
[2017-01-27 06:41] LABS: BUN/CREATININE RATIO 37.2 (10-20); CREATININE 1.2 mg/dl (0.60-1.20); MAGNESIUM 1.9 mg/dl (1.8-2.4); POTASSIUM 3.8 mmol/L (3.5-5.1)
--- NOTE | 2017-01-27 07:00 | DIAGNOSTIC IMAGING REPORT ---
CHEST ONE VIEW PORTABLE CLINICAL HISTORY: hypoxia, pneumonia pneumonia COMPARISON STUDY: 01/25/2017 FINDINGS: Unchanging right basilar infiltrative process. Slight improvement left basilar infiltrative process. Increased right perihilar density is unchanged. IMPRESSION: Stable to minimally improved exam The above report was generated using voice recognition software. It may contain grammatical, syntax or spelling errors. Electronically signed by: Hollis Rios M.D. 01/27/2017 6:59 AM Dictated Date/Time: 01/27/2017 6:57 AM
[2017-01-27] MEDS: FLUTICASONE/SALMETEROL 250/50 (ADVAIR) 14 PUFF/1 INHALER INH SCH ×2 (07:49→20:55)
[2017-01-27] MEDS: APIXABAN 2.5 MG TAB PO SCH ×2 (07:50→20:57)
[2017-01-27] MEDS: IPRATROPIUM BROMIDE/ALBUTEROL respimat INH INH SCH ×4 (07:50→20:56)
[2017-01-27] MEDS: ASPIRIN 81 MG ECTAB PO SCH (07:51)
[2017-01-27] MEDS: CALCIUM 600MG + VIT D 400 IU TAB PO SCH ×2 (07:51→20:56)
[2017-01-27] MEDS: AMIODARONE 200 MG TAB PO SCH ×2 (07:51→20:56)
[2017-01-27] MEDS: NYSTATIN SUSP 500,000 U/5 ML UDC PO SCH ×4 (07:52→20:53)
[2017-01-27] MEDS: ATORVASTATIN 40 MG TAB PO SCH (07:52)
[2017-01-27] MEDS: BOOST BREEZE NUTRITION DRINK 1 BOX PO SCH ×3 (08:15→17:15)
[2017-01-27] MEDS ORDERED: METOPROLOL SUCC 50MG EXT REL TAB PO SCH (09:00)
[2017-01-27] MEDS ORDERED: FUROSEMIDE INJ 20 MG in SYRINGE 0 ML IV ONE (09:15)
--- NOTE | 2017-01-27 10:02 | Pharmacy Progress Note ---
Pharmacy Abx Dose Short Note Date of Service Jan 27, 2017. Assessment & Plan A/P * Bump in Scr over last 24 hours. Will check Vanc trough prior to today's dose and make adjustments if indicated. * Day # 3 VANC IV * Continues Unasyn 1.5 grams IV every 6 hours. Day #6. * Continues Azithromycin 500mg IV every 24 hours. Day #6. Pharmacy will continue to follow and will adjust dose/frequency as necessary. Thank you.
[2017-01-27] MEDS: METHYLPREDNISOLONE IV 30 MG in SYRINGE 0 ML IV SCH ×2 (10:26→20:53)
[2017-01-27] MEDS: SODIUM BICARBONATE 650 MG TAB PO SCH ×2 (10:27→20:54)
[2017-01-27] MEDS ORDERED: VANCOMYCIN TROUGH ONE (13:30)
--- NOTE | 2017-01-27 15:22 | Progress Note ---
Subjective Date of Service: Jan 27, 2017. Subjective Pt evaluation today including: conversation w/ patient, physical exam, lab review, review of inpatient medication list Pain: oral pain better PO Intake: slight improvement Voiding: jeffery catheter in place patient feeling better today, breathing better, less cough trying to eat more and drink more reviewed I/O's, + 16L, placed jeffery and gave Lasix, no real response Problem List Medical Problems: (1) Acute kidney failure Status: Acute (2) CAD (coronary artery disease) Status: Acute (3) COPD exacerbation Status: Acute (4) Dysrhythmia Status: Acute (5) Fever Status: Acute (6) NSTEMI (non-ST elevated myocardial infarction) Status: Acute Review of Systems Constitutional: + weakness, + fatigue ENT: + problem reported (oral pain) Respiratory: + cough, + sputum, + wheezing, + shortness of breath All Other Systems: Reviewed and Negative Medications Current Inpatient Medications Medications (Trade) Dose Ordered Sig/Eileen Route Start Time Stop Time Status Last Admin Dose Admin Acetaminophen (Tylenol Tab) 650 mg Q4H PRN PO 01/22/17 02:45 02/21/17 02:44 Al Hydrox/Mg Hydrox/Simethicone (Maalox Max Susp) 15 ml Q4H PRN PO 01/22/17 02:45 02/21/17 02:44 Magnesium Hydroxide (Milk Of Magnesia Susp) 30 ml Q12H PRN PO 01/22/17 02:45 02/21/17 02:44 Ondansetron HCl (Zofran Inj) 4 mg Q6H PRN IV 01/22/17 02:45 02/21/17 02:44 01/23/17 20:53 4 MG Polyethylene (Miralax Powder Packet) 17 gm DAILY PRN PO 01/22/17 02:45 02/21/17 02:44 Apixaban (Eliquis Tab) 2.5 mg BID PO 01/22/17 09:00 02/21/17 08:59 Future hold 01/27/17 07:50 2.5 MG Aspirin (Ecotrin Tab) 81 mg DAILY PO 01/22/17 09:00 02/21/17 08:59 01/27/17 07:51 81 MG Atorvastatin Calcium (Lipitor Tab) 80 mg DAILY PO 01/22/17 09:00 02/21/17 08:59 7/15/17 07:52 80 MG Salmeterol Xinafoate/ Fluticasone (Advair Diskus 250/50 Inh) 1 puff BID INH 01/22/17 09:00 02/21/17 08:59 01/27/17 07:49 1 PUFF Nitroglycerin (Nitrostat Tab) 0.4 mg PRN UT 01/22/17 02:45 02/21/17 02:44 Tramadol HCl (Ultram Tab) 50 mg Q6 PRN PO 01/22/17 02:45 02/21/17 02:44 01/24/17 01:04 50 MG Azithromycin 500 mg/Dextrose 255 ml @ 125 mls/hr Q24H IV 01/22/17 05:00 01/29/17 04:59 01/27/17 05:07 125 MLS/HR Ampicillin Sodium/ Sulbactam Sodium (Consult) 1 ea UD PRN N/A 01/22/17 04:30 02/21/17 04:29 Enteral Nutritional Formula (Boost Breeze Nutritional Drink) 1 box TIDM PO 01/22/17 16:45 02/21/17 16:44 01/27/17 11:16 1 BOX Menthol (Nice Marce) 1 marce PRN PRN PO 01/23/17 05:00 02/22/17 04:59 Sodium Bicarbonate (Sodium Bicarbonate Tab) 650 mg BID PO 01/23/17 21:00 02/22/17 20:59 01/27/17 10:27 650 MG Albuterol/ Ipratropium (Combivent Respimat Inh) 1 puffs QID INH 01/23/17 13:00 02/22/17 12:59 01/27/17 13:11 1 PUFFS Calcium/Vitamin D (Caltrate Plus Tab) 1 tab BID PO 01/23/17 21:00 02/22/17 20:59 01/27/17 07:51 1 TAB Nystatin (Mycostatin Susp) 5 ml QID PO 01/24/17 13:00 02/03/17 12:59 01/27/17 13:11 5 ML Ipratropium [place] (Atrovent 0.02% 0.5MG/2.5ML Neb) 0.5 mg Q6R PRN INH 01/24/17 11:30 02/23/17 11:29 01/26/17 18:54 0.5 MG Levalbuterol (Xopenex 1.25MG/ 0.5ML Neb) 1.25 mg Q6R PRN INH 01/24/17 11:30 02/23/17 11:29 01/26/17 18:54 1.25 MG Ampicillin Sodium/ Sulbactam Sodium 1500 mg/Sodium Chloride 104 ml @ 200 mls/hr Q6@0200,0800,1399,1999 IV 01/24/17 20:00 01/29/17 19:59 01/27/17 13:11 200 MLS/HR Amiodarone HCl (Cordarone Tab) 200 mg BID PO 01/25/17 09:00 02/24/17 08:59 01/27/17 07:51 200 MG Vancomycin HCl (Consult) 1 ea UD PRN N/A 01/25/17 08:45 02/24/17 08:44 Mirtazapine (Remeron Tab) 15 mg HS PO 01/25/17 21:00 02/24/17 20:59 01/26/17 20:22 15 MG Lidocaine HCl (Viscous Lidocaine 2% Soln) 20 ml Q6 PRN MT 01/26/17 13:15 02/25/17 13:14 01/26/17 16:32 20 ML Metoprolol Succinate (Toprol Xl Tab) 50 mg QAM PO 01/27/17 09:00 02/26/17 08:59 01/27/17 11:15 50 MG Methylprednisolone Sodium Succinate 30 mg/Syringe 0.48 ml @ 1.5 mls/min Q12H IV 01/27/17 09:30 02/26/17 09:29 01/27/17 10:26 1.5 MLS/MIN Vancomycin HCl 800 mg/Sodium Chloride 266 ml @ 125 mls/hr DAILY@1999 IV 01/27/17 20:00 02/07/17 23:59 Objective Vital Signs Date Time Temp Pulse Resp B/P (MAP) Pulse Ox O2 Delivery O2 Flow Rate FiO2 01/27/17 12:30 91 Mask 6.0 01/27/17 11:39 36.3 87 26 136/75 (95) 87 Mask 6.0 01/27/17 09:15 90 Mask 6.0 01/27/17 07:13 36.3 81 26 131/68 (89) 90 Mask 6.0 01/27/17 04:00 Oxymask 6.0 01/27/17 03:31 36.8 88 30 117/65 (82) 92 01/26/17 23:59 Oxymask 6.0 01/26/17 23:18 36.4 89 28 118/59 (78) 92 Oxymask 6.0 01/26/17 20:00 Oxymask 01/26/17 19:02 107 22 94 Mask 7.0 01/26/17 18:55 36.8 94 30 142/82 (102) 87 Oxymask 6.0 01/26/17 16:32 110 137/63 01/26/17 16:00 Oxymask 7.0 01/26/17 15:12 36.5 113 30 137/63 (87) 90 Nasal Cannula 2.0 Physical Exam General Appearance: no apparent distress, + cachetic Eyes: normal inspection, EOMI, sclerae normal Neck: supple, no adenopathy, no JVD, trachea midline Respiratory/Chest: chest non-tender, no respiratory distress, no accessory muscle use, + decreased breath sounds, + crackles, + wheezing Cardiovascular: regular rate, rhythm, no edema, no gallop, no JVD, no murmur Abdomen: normal bowel sounds, non tender, soft, no organomegaly Extremities: normal range of motion, non-tender, normal inspection, no pedal edema, no calf tenderness Neurologic/Psychiatric: irrigator II-XII nml as tested, alert, normal mood/affect, oriented x 3, + motor weakness Skin: normal color, warm/dry, no rash Laboratory Results Last 24 Hours Test 01/26/17 19:39 01/27/17 05:33 01/27/17 13:35 Vancomycin Level Trough 15.2 mcg/ml 22.7 mcg/ml White Blood Count 15.83 K/uL Red Blood Count 3.26 M/uL Hemoglobin 9.5 g/dL Hematocrit 29.6 % Mean Corpuscular Volume 90.8 fL Mean Corpuscular Hemoglobin 29.1 pg Mean Corpuscular Hemoglobin Concent 32.1 g/dl Platelet Count 217 K/uL Mean Platelet Volume 9.5 fL Neutrophils (%) (Auto) 94.4 % Lymphocytes (%) (Auto) 2.0 % Monocytes (%) (Auto) 3.0 % Eosinophils (%) (Auto) 0.0 % Basophils (%) (Auto) 0.0 % Neutrophils # (Auto) 14.94 K/uL Lymphocytes # (Auto) 0.32 K/uL Monocytes # (Auto) 0.48 K/uL Eosinophils # (Auto) 0.00 K/uL Basophils # (Auto) 0.00 K/uL RDW Standard Deviation 47.2 fL RDW Coefficient of Variation 14.2 % Immature Granulocyte % (Auto) 0.6 % Immature Granulocyte # (Auto) 0.09 K/uL Sodium Level 142 mmol/L Potassium Level 3.8 mmol/L Chloride Level 108 mmol/L Carbon Dioxide Level 25 mmol/L Anion Gap 9.0 mmol/L Blood Urea Nitrogen 45 mg/dl Creatinine 1.20 mg/dl Est Creatinine Clear Calc Drug Dose 31.3 ml/min Estimated GFR () 52.3 Estimated GFR (Non- 45.1 BUN/Creatinine Ratio 37.2 Random Glucose 126 mg/dl Calcium Level 8.0 mg/dl Magnesium Level 1.9 mg/dl Assessment and Plan 71 y/o F Paroxysmal Aflutter, chronic systolic CHF, advanced COPD, CAD, dementia. Pt presents with 4-5 days of diarrhea and poor PO intake. She has become progressively weak and "shaky" per family. The pt states that she has an oral ulcer which makes eating painful in addition to a sore throat. She has occasional lower abdominal pain which resolves following a bowel movement. She denied a productive cough, SOB above baseline, CP or fevers. The pt was hypotensive on arrival to the ER and has responded to a fluid bolus. Initial labs are notable for ARF, hyponatremia and marked leukocytosis. A CT abdomen did not reveal any acute findings. A CXR shows a large consolidation in her R lung which was not present on imaging 06/30. - Sepsis POA due to Right lower lobe pneumonia: continue Zosyn and Zithromax and Vancomycin, more improvement today repeat CXR on 01/27 actually showing minimal improvement blood culture grew MRSA (1 of 2) but MRSA nasal swab negative and repeat cultures negative still with weak cough, afebrile, + leukocytosis - Non-gapped metabolic acidosis: due to diarrhea, resolved - Acute hypoxic respiratory failure: due to pneumonia on top of severe COPD continue Solu Medrol on less oxygen today, breathing easier, mild distress would not want intubated if she deteriorates - EDUARDO - appears to be prerenal azotemia since Cr and BUN improving with fluids resolved, Cr at 1.2 today - Hypocalcemia: Vitamin D low normal at 36, will continue Calcium with Vitamin D - COPD - continue Combivent and Levalbuterol nebs continue Solu Medrol 30mg IV q12 - chronic systolic heart failure - careful monitoring of volume status will be necessary to avoid overload as her EF is 30-35% continue to hold BB with low normal BP Lasix given, no real response - A flutter - HR better with resuming Toprol, continue 50mg daily - Cachexia - pt's weight needs to be addressed continue Remeron 15mg discussed alternative nutrition options, patient would not want PEG unclear cause of loss of appetite, normal abdomen on CT no role for GI consult, currently she could not undergo an EGD with her breathing - Mouth pain: erythematous and dry on exam, will add Nystatin and look for improvement no improvement on Nystatin add viscous lidocaine likely cause is large quantity of soda consumption every day social issues: patient lives with youngest son, per other family members, the house is filthy, concerned that she is not getting proper care anticipate needing rehab, possible correction placement plan for [facility] once medically stable DNR
[2017-01-27] MEDS ORDERED: VANCOMYCIN INJ 800 MG in SODIUM CHLORIDE 0.9% 250ML 250 ML IV SCH (20:00)
[2017-01-27] MEDS: MIRTAZAPINE TAB 15 MG TAB PO SCH (20:53)
[2017-01-28] MEDS: AMPICILLIN/SULBACTAM SOD INJ 1,500 MG in SODIUM CHLORIDE 0.9% 100ML 100 ML IV SCH (02:22)
[2017-01-28] MEDS: TRAMADOL HCL 50 MG TAB PO PRN (03:15)
[2017-01-28 04:44] VITALS: BP 144/80; PULSE 60; TEMP 36.3; O2SAT 91
[2017-01-28] MEDS: AZITHROMYCIN IV 500 MG in DEXTROSE 5% 250ML 250 ML IV SCH (05:12)
[2017-01-28 05:17] VITALS: O2SAT 88
[2017-01-28] MEDS: IPRATROPIUM BROMIDE NEB SOLN 0.02% 2.5 ML VIAL INH PRN (05:22)
[2017-01-28 05:23] VITALS: PULSE 57; O2SAT 91
[2017-01-28] MEDS: LEVALBUTEROL 1.25MG/0.5ML NEB INH PRN (05:23)
[2017-01-28] MEDS ORDERED: MoRPHine SULFATE 2 MG/ML CARP IV STA (06:37)
--- NOTE | 2017-01-28 06:50 | Progress Note ---
Progress Note Date of Service Jan 28, 2017. 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 no audible wheeze. Ext: No peripheral edema I called the pts son HERO and discussed her care, he had been here last night and saw her doing well. We discussed that although she is a do not intubate if he would want her on a higher level of face mask (BiPAP), and he agreed, at least for temporary measures. He did not know what time he would be in. A: Worsening of pulmonary status, visibly uncomfortable when tachypneic, remains hypoxic on high O2 supplementation P: BiPAP temporarily Morphine 1mg IV if HR goes above 25 6:50 - Pts HR had gone into the 30's. Made multiple attempts to call son, did not answer. 6:58 am - Got in touch w/family and informed them. Pt also took her last breath. Dr Terry informed as well. 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
[2017-01-28] MEDS ORDERED: VANCOMYCIN TROUGH ONE (07:30)
--- NOTE | 2017-01-28 07:59 | Death Pronouncement Note ---
Pronouncement Note Date & Time of Jan 28, 2017. 0658 Pronouncement At time of pronouncement the patients pupils were fixed and dilated, there was no spontaneous respiratory effort, no palpable pulse, no audible heart tones, and no response to pain or voice.
--- NOTE | 2017-01-28 08:13 | Death Summary ---
Summary of Admission Date Jan 22, 2017 at 02:42 Date & Time of Jan 28, 2017. 0658 Cause of Acute on chronic respiratory failure with hypoxia Secondary Diagnoses Bilateral multifocal pneumonia Severe sepsis Atrial flutter with RVR Chronic systolic heart failure Cachexia with severe malnutrition Severe COPD h/o Tobacco abuse Diarrhea with metabolic acidosis Hospital Course 71 y/o F Paroxysmal Aflutter, chronic systolic CHF, advanced COPD, CAD, dementia. Pt present on 01/22/17 with 4-5 days of diarrhea and poor PO intake. She has become progressively weak and "shaky" per family. The pt states that she has an oral ulcer which makes eating painful in addition to a sore throat. She has occasional lower abdominal pain which resolves following a bowel movement. She denied a productive cough, SOB above baseline, CP or fevers. The pt was hypotensive on arrival to the ER and has responded to a fluid bolus. Initial labs are notable for ARF, hyponatremia and marked leukocytosis. A CT abdomen did not reveal any acute findings. A CXR shows a large consolidation in her R lung which was not present on imaging 06/30. 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 she started to develop more respiratory distress immediate measures to relieve her distress were not successfull and her hypoxia became more pronounced she became less responsive and then developed bradycardia due to hypoxia and then developed PEA the patient was a level 5, we had discussed in detail resuscitation and she confirmed with family that she would not want anything done the patient would not have been weaned off the ventilator if she had been intubated - Acute hypoxic respiratory failure with suspected chronic hypoxic respiratory failure: due to pneumonia on top of severe COPD COPD treated with Solu Medrol 30mg q12 was requiring less oxygen on 01/27 but then deteriorated quickly overnight did not want intubated - EDUARDO - appeared to be prerenal azotemia since Cr and BUN improved quickly with fluids Cr was 1.2 on 01/27, however her UO was minimal jeffery was placed, Lasix 20mg IV given and very little UO all day despite being positive on fluid balance - Hypocalcemia: Vitamin D low normal at 36, treated with Calcium with Vitamin D - COPD - Solu Medrol 30mg IV q12, Combiven, nebulizers - chronic systolic heart failure - EF 35%, lungs examined dry on 01/27 - A flutter - went into RVR on 01/25 and 01/26, treated with Amiodarone IV, resolved resumed Toprol 50mg daily when BP came back up into the 130's systolic HR was well controlled on 01/27 - Cachexia with severe protein malnutrition patient not eating much for a month according to family, very little food intake, would mostly drink soda all day initially given Megace but did little to help appetite stopped Megace and started Remeron which did seem to help slightly Boost breeze TID with meals and constant encouragement to eat, family brought in Turkish food and Amador's no abnormalities seen on CT scan could not tolerate an EGD as part of work up due to breathing certainly contributed to her as she had very little reserve to tolerate her infection and respiratory failure had discussed PEG tube, she said she would never want one - Mouth pain: erythematous and dry on exam, no clear ulcers treated with Nystatin and viscous lidocaine with some improvement in symptoms suspect she may have been experiencing irritation from the large amount of soda she was drinking DNR Copy To Dustin Dominguez M.D.
== END 2017-01-28 10:31 | disposition expired | DRG 871 ==
LOC: EDBD 22:12 → C.EDB 22:14 → C.MSICU 01-22 02:42 → CANRESERV 01-22 02:56 → ENRESERV 01-22 02:56 → C.2E 01-22 14:29
PROVIDERS: ADMIT Internal Medicine; ATTEND Internal Medicine
DX: A41.02 Sepsis due to Methicillin resistant Staphylococcus aureus (principal); J96.21 Acute and chronic respiratory failure with hypoxia; J18.9 Pneumonia, unspecified organism; N17.9 Acute kidney failure, unspecified; I48.92 Unspecified atrial flutter; R64 Cachexia; E87.2 Acidosis; R19.7 Diarrhea, unspecified; I95.9 Hypotension, unspecified; I48.91 Unspecified atrial fibrillation; I25.10 Atherosclerotic heart disease of native coronary artery without angina pectoris; I25.2 Old myocardial infarction; Z95.5 Presence of coronary angioplasty implant and graft; I50.9 Heart failure, unspecified; J44.9 Chronic obstructive pulmonary disease, unspecified; K21.9 Gastro-esophageal reflux disease without esophagitis; R53.1 Weakness; Z79.82 Long term (current) use of aspirin; Z98.0 Intestinal bypass and anastomosis status; F03.90 Unspecified dementia, unspecified severity, without behavioral disturbance, psychotic disturbance, mood disturbance, and anxiety; E83.51 Hypocalcemia; E55.9 Vitamin D deficiency, unspecified; F17.200 Nicotine dependence, unspecified, uncomplicated; Z66 Do not resuscitate; K13.79 Other lesions of oral mucosa